=== PATIENT | female | born 1930 | race Caucasian/White ===

== ENCOUNTER 2017-09-04 13:54 | Emergency (ER) | payer MEDICARE ==
--- NOTE | 2017-09-04 15:31 | RADIOLOGY REPORT (SQ) ---
EXAM DESCRIPTION: HUMERUS RIGHT COMPLETED DATE/TIME: 09/04/2017 3:20 pm REASON FOR STUDY: fall COMPARISON: None. NUMBER OF VIEWS: 3 views. TECHNIQUE: 3 radiographic images were acquired of the right humerus to include elbow and shoulder in at least one projection. LIMITATIONS: None. FINDINGS: MINERALIZATION: Demineralization of the bony structures. BONES: AC arthrosis and hypertrophy. Decrease in subacromion space with subluxation of humeral head superiorly compatible with chronic rotator cuff degeneration. Soft tissue calcification adjacent gre ater tuberosity consistent with peritendinitis calcareii. Articular calcification at the AC joint. SOFT TISSUES: No obvious swelling or foreign body. OTHER: No other significant finding. IMPRESSION: NEGATIVE STUDY OF THE RIGHT HUMERUS. NO RADIOGRAPHIC EVIDENCE OF ACUTE INJURY. TECHNICAL DOCUMENTATION: JOB ID: [id number] SC-[id number] 2010 [employer]- All Rights Reserved Reading location - IP/workstation name: [email or web address]
--- NOTE | 2017-09-04 15:55 | RADIOLOGY REPORT (SQ) ---
EXAM DESCRIPTION: CT CHEST WITHOUT COMPLETED DATE/TIME: 09/04/2017 3:36 pm REASON FOR STUDY: fall COMPARISON: None. TECHNIQUE: CT scan performed of the chest without intravenous contrast. Images reviewed with lung, soft tissue and bone windows. Reconstructed coronal and sagittal MPR images reviewed. All images st ored on PACS. All CT scanners at this facility use dose modulation, iterative reconstruction, and/or weight based d osing when appropriate to reduce radiation dose to as low as reasonably achievable (ALARA). [facility]: Dose Right [facility]: CareDose [facility]: Dose Right [facility]: Teradose 4D [facility]: [employer] RADIATION DOSE: CT Rad equipment meets quality standard of care and radiation dose reduction techniq ues were employed. CTDIvol: 8.6 mGy. DLP: 297 mGy-cm. mGy. LIMITATIONS: No technical limitations. FINDINGS: LUNGS AND PLEURA: Mild chronic left lower lobe scar with associated bronchiectasis. Lungs otherwise clear. No pneumothorax or acute infiltrate. No pleural effusion. HILAR AND MEDIASTINAL STRUCTURES: No evidence of mediastinal hematoma, mass or adenopathy. HEART AND VASCULAR STRUCTURES: Pronounced coronary calcification. No evidence of aortic aneurysm. N o pericardial effusion. UPPER ABDOMEN: Cholelithiasis. THYROID AND OTHER SOFT TISSUES: No masses. No adenopathy. BONES: Relatively nondisplaced right lateral 6th and 7th rib fractures. HARDWARE: None in the chest. OTHER: No other significant findings. Note: The patient's head was erroneously scanned initially. I asked the technologist to attach the images to this chest study for review. This is not interpreted as a separate examination and the pat ient will not be billed for the mistakenly performed head CT. There is no acute intracranial abnorma lity detected. No suspicious findings. IMPRESSION: 1. Nondisplaced right lateral 6th and 7th rib fractures. No pneumothorax. Lungs clear . TECHNICAL DOCUMENTATION: JOB ID: [id number] Quality ID # [id number]: Final reports with documentation of one or more dose reduction techniques (e.g., Au tomated exposure control, adjustment of the mA and/or kV according to patient size, use of iterative reconstruction technique) 2010 [employer]- All Rights Reserved Reading location - IP/workstation name: [email or web address]
[2017-09-04] MEDS ORDERED: HYDROCODONE/ACETAMINOPHEN 5-325 MG (6 TAB/ER DISP) PO PRN (16:17)
--- NOTE | 2017-09-04 16:17 | ER Document Report ---
ED Fall - General Chief Complaint: Fall Stated Complaint: FALL RIGHT RIB PAIN Time Seen by Provider: 09/04/17 14:47 Notes: Patient fell around 4 AM this morning and injured her right shoulder and right upper arm as well as her right ribs. She lives at the [facility], assisted living , and uses a walker to ambulate and she also has problems with neuropathy making it difficult for her to walk even with the walker. She has multiple bruises over most of her body consistent with fragile skin and tissues and repeated trauma. Patient denies any other symptoms. Denies any vomiting or diarrhea. Denies chest pain. Denies difficulty breathing or shortness of breath. Denies fever. TRAVEL OUTSIDE OF THE [place] IN LAST 30 DAYS: No - Related data Allergies/Adverse Reactions: Penicillins Allergy (Verified 09/04/17 14:05) Past Medical History - Social History Smoking Status: Unknown if Ever Smoked Cigarette use (# per day): No Family History: Reviewed & Not Pertinent Patient has suicidal ideation: No Patient has homicidal ideation: No - Past Medical History Cardiac Medical History: Reports: Hx Hypertension Pulmonary Medical History: Reports: Hx Bronchitis Endocrine Medical History: Reports: Hx Diabetes Mellitus Type 2 - prediabetic per records GI Medical History: Reports: Hx Gastroesophageal Reflux Disease Review of Systems - Review of Systems Notes: REVIEW OF SYSTEMS: CONSTITUTIONAL : Denies fever. EENT: Denies eye, ear, nose or mouth or throat pain or other symptoms. CARDIOVASCULAR: Denies chest pain. Does have chest wall type pain in the right robert-lateral rib region. RESPIRATORY: Denies cough, chest congestion, or shortness of breath. GASTROINTESTINAL: Denies abdominal pain or nausea, vomiting, or diarrhea. GENITOURINARY: Denies difficulty or painful urinating, urinary frequency, blood in urine. MUSCULOSKELETAL: Denies back or neck pain. Denies joint pain or swelling. Pain in proximal right humerus to the right shoulder joint, but bones feel to be properly located and no fracture or dislocation clinically evident. SKIN: Denies rash or skin lesions. NEUROLOGICAL: Denies LOC or altered mental status. Denies headache. Denies sensory loss or motor deficits. ALL OTHER SYSTEMS REVIEWED AND NEGATIVE. Physical Exam - Vital signs Vitals: Temp Pulse Resp BP Pulse Ox 97.8 F 61 16 166/59 H 93 09/04/17 14:15 09/04/17 14:15 09/04/17 14:15 09/04/17 14:15 09/04/17 14:15 Interpretation: Normal - Notes Notes: PHYSICAL EXAMINATION: GENERAL: Well-appearing, in no acute distress. HEAD: Atraumatic, normocephalic. EYES: Pupils equal round and reactive to light, extraocular movements intact. NECK: Normal range of motion, supple. LUNGS: Breath sounds clear and equal bilaterally. Very tender to press on the ribs of the right anterior lateral chest. No subcutaneous air felt, however. HEART: Regular rate and rhythm without murmurs. ABDOMEN: Soft, nontender. No guarding or rebound. No masses. BACK: No tenderness throughout entire back. EXTREMITIES: Patient complains of pain for me to palpate the right shoulder joint or to lift her right arm and move that joint. The humeral head feels to be in the proper location at the glenoid fossa. No significant soft tissue swelling. Clinically, I doubt she has a fracture or dislocation. Otherwise, all other joints normal range of motion without pain. NEUROLOGICAL: Normal speech. Normal sensory, motor, and reflex exams. Awake, alert, and oriented x3. PSYCH: Normal mood, normal affect. SKIN: Warm, dry, no rashes. Course - Vital Signs Vital signs: Temp Pulse Resp BP Pulse Ox 97.8 F 74 16 141/52 H 93 09/04/17 18:55 09/04/17 18:55 09/04/17 18:55 09/04/17 18:55 09/04/17 18:55 - Diagnostic Test Radiology reviewed: Image reviewed, Reports reviewed - CT of the chest shows fractures of the sixth and seventh ribs on the right. Otherwise negative. Radiology results interpreted by me: 09/04/17 20:48 Right shoulder x-ray and humerus bone are normal without fracture or dislocation. Discharge - Discharge Clinical Impression: Fall, Fracture of ribs, two Condition: Stable Disposition: HOME, SELF-CARE Additional Instructions: HEAD INJURY PRECAUTIONS: At this point, there is no evidence that your head injury is serious. Observation is necessary, however. Take only clear liquids for the first few hours, unless told otherwise by the doctor. If no pain medication was prescribed, you may take acetaminophen according to the directions on the bottle. Do not take any medication that may alter your level of alertness (unless you've discussed it with the doctor first) . Limit activity for the first 24 hours. Bed rest is best. During the first 24 hours, check to see approximately every two to three hours that the patient is easily arousable, responds normally, and can perform common tasks such as walking without difficulty. Contact your doctor or go to the hospital if any of the following things occur: Persistent vomiting, difficulty in arousing the patient, worsening or continued headache, or failure to improve as expected. Head injuries can cause symptoms that persist for a few days or even a few weeks. Rib Injuries and Fractures You have been diagnosed as having either bruised or broken ribs. These two injuries are treated in the same way. It will usually take four to six weeks for these injured ribs to heal. Sometimes, rib belts or anesthetic injections of the chest wall help reduce the pain. If you are using a rib belt, you should cough or take a deep breath at least every hour or two to prevent lung complications. You should not engage in any strenuous physical activity until released by your physician. The usual rule is "if it hurts, don't do it." Rib fractures can lead to serious lung complications including lung collapse, hemorrhage, and pneumonia. You should call the physician or return at once if any of the following occur: (1) Fever or chills. (2) Persistent cough, coughing up blood, or shortness of breath. (3) Increasing pain. (4) Weakness, lightheadedness, or fainting. CONTUSION right arm and shoulder: Your injury has resulted in a contusion -- a crushing of the deep tissues. No injury to important structures was detected during the physician's exam. Contusions vary in the amount of pain they cause, and in the length of time required for healing. Typically, the area will become bruised, and will remain painful to touch for two or three weeks. However, most patients are back to working and playing within a few days. After the initial period of rest and cold-packs, your symptoms (together with the doctor's recommendations) will determine how rapidly you can get back to full activity. Usually this means "do what feels okay, but don't do things that hurt." If re-examination was recommended, it's important to follow up as instructed. Call the doctor or return any time if pain increases, if swelling becomes severe, if you develop numbness or weakness in an injured extremity, or if any other alarming symptoms occur. USE OF TYLENOL (ACETAMINOPHEN): Acetaminophen may be taken for pain relief or fever control. It's much safer than aspirin, offering a wider range of "safe" dosages. It is safe during . Some brand names are Tylenol, Panadol, Datril, Anacin 3, Tempra, and Liquiprin. Acetaminophen can be repeated every four hours. The following are maximum recommended dosages: WEIGHT Dose Drops Elixir Chewable( 80mg) (LBS.) drprs=droppers tsp=teaspoon >89 pounds or adults 650 mg to 900 mg Acetaminophen can be repeated every four hours. Maximum dose not to exceed 4000 mg a day. These maximum recommended dosages are slightly higher than the dosages written on the product container, but these dosages are very safe and below the toxic dosage for acetaminophen. ORAL NARCOTIC MEDICATION: You have been given a prescription for pain control. This medication is a narcotic. It's best taken with food, as nausea can result if taken on an empty stomach. Don't operate machinery or drive within six hours of taking this medication. Do not combine this medicine with alcohol, or with any medication which can cause sedation (such as cold tablets or sleeping pills) unless you get permission from the physician. Narcotics tend to cause constipation. If possible, drink plenty of fluids and eat a diet high in fiber and fruits. FOLLOW-UP CARE: If you have been referred to a physician for follow-up care, call the physician s office for an appointment as you were instructed or within the next two days. If you experience worsening or a significant change in your symptoms, notify the physician immediately or return to the Emergency Department at any time for re-evaluation. Referrals: ELYSE BOOTH MD [Primary Care Provider] - Follow up as needed
[2017-09-04 18:57] VITALS: BP 141/52
== END 2017-09-04 19:06 | disposition home or self-care (01) ==
LOC: ER 13:54
DX: S22.41XA Multiple fractures of ribs, right side, initial encounter for closed fracture (principal); S49.91XA Unspecified injury of right shoulder and upper arm, initial encounter; W19.XXXA Unspecified fall, initial encounter; Y93.89 Activity, other specified; I10 Essential (primary) hypertension; G62.9 Polyneuropathy, unspecified
CPT/HCPCS: 99285; 73060; 71250; A9270

== ENCOUNTER 2017-11-25 12:05 | Emergency (ER) | payer MEDICARE ==
--- NOTE | 2017-11-25 13:11 | RADIOLOGY REPORT (SQ) ---
EXAM DESCRIPTION: CT HEAD WITHOUT COMPLETED DATE/TIME: 11/25/2017 12:54 pm REASON FOR STUDY: FALL CHAVEZ ORBITAL PAIN COMPARISON: None. TECHNIQUE: Axial images acquired through the brain without intravenous contrast. Images reviewed wi th bone, brain and subdural windows. Additional sagittal and coronal reconstructions were generated. Images stored on PACS. All CT scanners at this facility use dose modulation, iterative reconstruction, and/or weight based d osing when appropriate to reduce radiation dose to as low as reasonably achievable (ALARA). [facility]: Dose Right [facility]: CareDose [facility]: Dose Right [facility]: Teradose 4D [facility]: Smart [employer] RADIATION DOSE: CT Rad equipment meets quality standard of care and radiation dose reduction techniq ues were employed. CTDIvol: 53.2 mGy. DLP: 991 mGy-cm. mGy. LIMITATIONS: None. FINDINGS: VENTRICLES: Prominent. CEREBRUM: Mild cortical atrophy. No masses. No hemorrhage. No midline shift. No evidence for acut e infarction. Few scattered areas of low density in the white matter most likely chronic small vessel ischemic changes. CEREBELLUM: No masses. No hemorrhage. No alteration of density. No evidence for acute infarction. EXTRAAXIAL SPACES: No fluid collections. No masses. ORBITS AND GLOBE: No intra- or extraconal masses. Normal contour of globe without masses. CALVARIUM: No fracture. PARANASAL SINUSES: No fluid or mucosal thickening. SOFT TISSUES: Right posterior parietal scalp hematoma. OTHER: No other significant finding. IMPRESSION: Right posterior parietal scalp hematoma with no acute intracranial imaging findings. Ch ronic microvascular ischemia. EVIDENCE OF ACUTE STROKE: NO. COMMENT: Quality ID # [id number]: Final reports with documentation of one or more dose reduction techniques (e.g., Automated exposure control, adjustment of the mA and/or kV according to patient size, use of iterative reconstruction technique) TECHNICAL DOCUMENTATION: JOB ID: [id number] [employer] All Rights Reserved Reading location - IP/workstation name: [email or web address]
--- NOTE | 2017-11-25 13:18 | RADIOLOGY REPORT (SQ) ---
EXAM DESCRIPTION: CT CERVICAL SPINE WITHOUT COMPLETED DATE/TIME: 11/25/2017 12:54 pm REASON FOR STUDY: FALL CHVAEZ ORBITAL PAIN COMPARISON: None. TECHNIQUE: Axial images acquired through the cervical spine without intravenous contrast. Images re viewed with lung, soft tissue and bone windows. Reconstructed coronal and sagittal MPR images review ed. Images stored on PACS. All CT scanners at this facility use dose modulation, iterative reconstruction, and/or weight based d osing when appropriate to reduce radiation dose to as low as reasonably achievable (ALARA). [facility]: Dose Right [facility]: CareDose [facility]: Dose Right [facility]: Teradose 4D [facility]: [employer] RADIATION DOSE: CT Rad equipment meets quality standard of care and radiation dose reduction techniq ues were employed. CTDIvol: 22.8 mGy. DLP: 472 mGy-cm. mGy. LIMITATIONS: None. FINDINGS: ALIGNMENT: Anatomic. MINERALIZATION: Normal. VERTEBRAL BODIES: No fractures or dislocation. DISCS: Disc spaces are narrowed from C5- T1. Small anterior and posterior osteophytes are present. FACETS, LATERAL MASSES, POSTERIOR ELEMENTS: Hypertrophic facet changes are present in the mid cervica l spine on the right. HARDWARE: None in the spine. VISUALIZED RIBS: No fractures. LUNG APICES AND SOFT TISSUES: No significant or acute findings. OTHER: No other significant finding. IMPRESSION: Degenerative disc disease, spondylosis, and facet arthropathy. TECHNICAL DOCUMENTATION: JOB ID: [id number] Quality ID # [id number]: Final reports with documentation of one or more dose reduction techniques (e.g., Au tomated exposure control, adjustment of the mA and/or kV according to patient size, use of iterative reconstruction technique) 2010 [employer]- All Rights Reserved Reading location - IP/workstation name: [email or web address]
--- NOTE | 2017-11-25 13:21 | RADIOLOGY REPORT (SQ) ---
EXAM DESCRIPTION: CT FACIAL AREA WITHOUT COMPLETED DATE/TIME: 11/25/2017 12:54 pm REASON FOR STUDY: FALL CHAVEZ ORBITAL PAIN COMPARISON: None. TECHNIQUE: Noncontrasted images through the facial bones and orbits windowed for bone and soft tissu e. Additional coronal and sagittal reconstructed images reviewed. All images stored on PACS. All CT scanners at this facility use dose modulation, iterative reconstruction, and/or weight based d osing when appropriate to reduce radiation dose to as low as reasonably achievable (ALARA). [facility]: Dose Right [facility]: CareDose [facility]: Dose Right [facility]: Teradose 4D [facility]: [employer] RADIATION DOSE: CT Rad equipment meets quality standard of care and radiation dose reduction techniq ues were employed. CTDIvol: 30.4 mGy. DLP: 576 mGy-cm. mGy. LIMITATIONS: None. FINDINGS: FACIAL BONES: No fracture or bone lesion. ORBITS: Intact. No fracture. Symmetric intact globes and retroorbital soft tissues. PARANASAL SINUSES: Small mucous retention cysts bilaterally. Antral windows. No nasal polyps. Maxil smooth sinus outlets are patent. SOFT TISSUES: No mass or edema. INFERIOR BRAIN: Limited view. No acute findings. OTHER: No other significant finding. IMPRESSION: Mild maxillary sinus disease. No acute facial fractures. TECHNICAL DOCUMENTATION: JOB ID: [id number] Quality ID # [id number]: Final reports with documentation of one or more dose reduction techniques (e.g., Au tomated exposure control, adjustment of the mA and/or kV according to patient size, use of iterative reconstruction technique) 2010 [employer]- All Rights Reserved Reading location - IP/workstation name: [email or web address]
--- NOTE | 2017-11-25 13:31 | ER Document Report ---
ED General - General Chief Complaint: Fall Stated Complaint: FALL NECK PAIN Time Seen by Provider: 11/25/17 12:13 TRAVEL OUTSIDE OF THE [place] IN LAST 30 DAYS: No - HPI Patient complains to provider of: fall Notes: Patient admitted from local nursing facility at the referral. Patient pain was walking to see somebody in the doorway when she fell hitting her head with a hematoma on the top and right posterior part of the scalp. Patient upon my evaluation alert complaining of a mild headache. Patient is on aspirin and Plavix. Patient denies any chest pain abdominal pain leg pain prior to or after fall. Patient was concurrently with c-collar on asking to have the c- collar removed. - Related Data Allergies/Adverse Reactions: Penicillins Allergy (Verified 09/04/17 14:05) Past Medical History - Social History Smoking Status: Never Smoker Frequency of alcohol use: None Drug Abuse: None Family History: Reviewed & Not Pertinent Patient has suicidal ideation: No Patient has homicidal ideation: No - Past Medical History Cardiac Medical History: Reports: Hx Hypertension Pulmonary Medical History: Reports: Hx Bronchitis Endocrine Medical History: Reports: Hx Diabetes Mellitus Type 2 - prediabetic per records Renal/ Medical History: Denies: Hx Peritoneal Dialysis GI Medical History: Reports: Hx Gastroesophageal Reflux Disease Review of Systems - Review of Systems Constitutional: Other - fall headache EENT: No symptoms reported Cardiovascular: No symptoms reported Respiratory: No symptoms reported Gastrointestinal: No symptoms reported Genitourinary: No symptoms reported Female Genitourinary: No symptoms reported Musculoskeletal: No symptoms reported Skin: No symptoms reported Hematologic/Lymphatic: No symptoms reported Neurological/Psychological: No symptoms reported -: Yes All other systems reviewed and negative Physical Exam - Vital signs Vitals: Temp Pulse Resp BP Pulse Ox 97.7 F 64 18 209/70 H 96 11/25/17 12:12 11/25/17 12:12 11/25/17 12:12 11/25/17 12:12 11/25/17 12:12 Interpretation: Normal - General General appearance: Appears well, Alert - HEENT Head: Normocephalic, Other - Hematoma to the scalp right side Eyes: Normal Conjunctiva: Normal Cornea: Normal Extraocular movements intact: Yes Eyelashes: Normal Pupils: PERRL Neck: Other - C-collar in place Notes: Patient with tenderness to palpation to the mentum bilateral zygomatic arches and nasal bridge no signs of obvious fracture seen - Respiratory Respiratory status: No respiratory distress Chest status: Nontender Breath sounds: Normal Chest palpation: Normal - Cardiovascular Rhythm: Regular Heart sounds: Normal auscultation Murmur: No - Abdominal Inspection: Normal Distension: No distension Bowel sounds: Normal Tenderness: Nontender Organomegaly: No organomegaly - Back Back: Normal, Nontender - Extremities General upper extremity: Normal inspection, Nontender, Normal color, Normal ROM , Normal temperature General lower extremity: Normal inspection, Nontender, Normal color, Normal ROM , Normal temperature, Normal weight bearing. No: Julio César's sign - Neurological Neuro grossly intact: Yes Cognition: Normal Orientation: AAOx4 Rhiannon Coma Scale Eye Opening: Spontaneous [place] Coma Scale Verbal: Oriented [place] Coma Scale Motor: Obeys Commands Rhiannon Coma Scale Total: 15 Speech: Normal Motor strength normal: LUE, RUE, LLE, RLE Sensory: Normal - Psychological Associated symptoms: Normal affect, Normal mood - Skin Skin Temperature: Warm Skin Moisture: Dry Skin Color: Normal Course - Re-evaluation Re-evalutation: 11/25/17 13:30 History is negative for acute fracture or intracranial pathology. C-collar will be removed. More likely hospice will be back to the nursing care facility after ambulating the patient here in the ER - Vital Signs Vital signs: Temp Pulse Resp BP Pulse Ox 97.7 F 64 14 183/75 H 97 11/25/17 12:12 11/25/17 12:12 11/25/17 14:10 11/25/17 14:10 11/25/17 14:10 Discharge - Discharge Clinical Impression: Fall Qualifiers: Encounter type: initial encounter Qualified Code(s): W19.XXXA - Unspecified fall, initial encounter Scalp hematoma Qualifiers: Encounter type: initial encounter Qualified Code(s): S00.03XA - Contusion of scalp, initial encounter Condition: Good Instructions: Head Injury Precautions ([facility]) Additional Instructions: Please create a safe environment for the patient to invade around. CT scan of the head face and neck today did not reveal any acute traumatic findings. Please follow-up with your primary care physician return to the ER symptoms worsen. Referrals: ELYSE BOOTH MD [Primary Care Provider] - Follow up as needed
[2017-11-25 13:59] VITALS: BP 183/75
== END 2017-11-25 14:41 ==
LOC: ER 12:05
DX: S00.03XA Contusion of scalp, initial encounter (principal); R51 Headache; M54.2 Cervicalgia; W19.XXXA Unspecified fall, initial encounter; Z79.02 Long term (current) use of antithrombotics/antiplatelets; Z79.82 Long term (current) use of aspirin; E11.9 Type 2 diabetes mellitus without complications; I10 Essential (primary) hypertension
CPT/HCPCS: 70450; 70486; 72125; 99285

== ENCOUNTER 2018-02-11 14:37 | Emergency (ER) | payer MEDICARE ==
--- NOTE | 2018-02-11 15:41 | RADIOLOGY REPORT (SQ) ---
EXAM DESCRIPTION: CT HEAD WITHOUT COMPLETED DATE/TIME: 02/11/2018 3:27 pm REASON FOR STUDY: Fall, bleeding from mouth/nose COMPARISON: 11/25/2017 TECHNIQUE: Axial images acquired through the brain without intravenous contrast. Images reviewed wi th bone, brain and subdural windows. Additional sagittal and coronal reconstructions were generated. Images stored on PACS. All CT scanners at this facility use dose modulation, iterative reconstruction, and/or weight based d osing when appropriate to reduce radiation dose to as low as reasonably achievable (ALARA). [facility]: Dose Right [facility]: CareDose [facility]: Dose Right [facility]: Teradose 4D [facility]: [employer] RADIATION DOSE: CT Rad equipment meets quality standard of care and radiation dose reduction techniq ues were employed. CTDIvol: 53.2 mGy. DLP: 991 mGy-cm. mGy. LIMITATIONS: None. FINDINGS: VENTRICLES: Prominent. CEREBRUM: No masses. No hemorrhage. No midline shift. Areas of low density in the white matter mos t likely due to chronic micro-vascular ischemic change. No evidence for acute infarction. CEREBELLUM: No masses. No hemorrhage. No alteration of density. No evidence for acute infarction. EXTRAAXIAL SPACES: Mild age-related involutional change. No fluid collections. No masses. ORBITS AND GLOBE: No intra- or extraconal masses. Normal contour of globe without masses. CALVARIUM: No fracture. PARANASAL SINUSES: No fluid or mucosal thickening. SOFT TISSUES: No mass or hematoma. OTHER: No other significant finding. IMPRESSION: MILD CHRONIC CHANGES OF ATROPHY AND MICROVASCULAR ISCHEMIA. NO ACUTE PROCESS. EVIDENCE OF ACUTE STROKE: NO. TECHNICAL DOCUMENTATION: JOB ID: [id number] Quality ID # [id number]: Final reports with documentation of one or more dose reduction techniques (e.g., Au tomated exposure control, adjustment of the mA and/or kV according to patient size, use of iterative reconstruction technique) 2010 [employer]- All Rights Reserved Reading location - IP/workstation name: [email or web address]
--- NOTE | 2018-02-11 15:47 | RADIOLOGY REPORT (SQ) ---
EXAM DESCRIPTION: CT FACIAL AREA WITHOUT COMPLETED DATE/TIME: 02/11/2018 3:27 pm REASON FOR STUDY: Fall, bleeding from mouth/nose COMPARISON: None. TECHNIQUE: Noncontrasted images through the facial bones and orbits windowed for bone and soft tissu e. Additional coronal and sagittal reconstructed images reviewed. All images stored on PACS. All CT scanners at this facility use dose modulation, iterative reconstruction, and/or weight based d osing when appropriate to reduce radiation dose to as low as reasonably achievable (ALARA). [facility]: Dose Right [facility]: CareDose [facility]: Dose Right [facility]: Teradose 4D [facility]: [employer] RADIATION DOSE: CT Rad equipment meets quality standard of care and radiation dose reduction techniq ues were employed. CTDIvol: 30.4 mGy. DLP: 549 mGy-cm. mGy. LIMITATIONS: None. FINDINGS: FACIAL BONES: No fracture or bone lesion. ORBITS: Intact. No fracture. Symmetric intact globes and retroorbital soft tissues. PARANASAL SINUSES: Chronic sinus disease. The prior surgery. SOFT TISSUES: Marked soft tissue swelling of the nose. INFERIOR BRAIN: Limited view. No acute findings. OTHER: No other significant finding. IMPRESSION: No acute fracture. Marked soft tissue swelling of the nose. TECHNICAL DOCUMENTATION: JOB ID: [id number] Quality ID # [id number]: Final reports with documentation of one or more dose reduction techniques (e.g., Au tomated exposure control, adjustment of the mA and/or kV according to patient size, use of iterative reconstruction technique) 2010 [employer]- All Rights Reserved Reading location - IP/workstation name: [email or web address]
--- NOTE | 2018-02-11 15:49 | RADIOLOGY REPORT (SQ) ---
EXAM DESCRIPTION: CT CERVICAL SPINE WITHOUT COMPLETED DATE/TIME: 02/11/2018 3:27 pm REASON FOR STUDY: Fall, bleeding from mouth/nose COMPARISON: 11/25/2017. TECHNIQUE: Axial images acquired through the cervical spine without intravenous contrast. Images re viewed with lung, soft tissue and bone windows. Reconstructed coronal and sagittal MPR images review ed. Images stored on PACS. All CT scanners at this facility use dose modulation, iterative reconstruction, and/or weight based d osing when appropriate to reduce radiation dose to as low as reasonably achievable (ALARA). [facility]: Dose Right [facility]: CareDose [facility]: Dose Right [facility]: Teradose 4D [facility]: [employer] RADIATION DOSE: CT Rad equipment meets quality standard of care and radiation dose reduction techniq ues were employed. CTDIvol: 20.7 mGy. DLP: 425 mGy-cm. mGy. LIMITATIONS: None. FINDINGS: ALIGNMENT: Anatomic. MINERALIZATION: Normal. VERTEBRAL BODIES: Multilevel cervical spondylosis from C3 -T1. DISCS: Prominent disc space narrowing from C5-T1 consistent with degenerative disc disease. Minimal disc space narrowing at C3-5. FACETS, LATERAL MASSES, POSTERIOR ELEMENTS: Facet arthropathy at C4-5. Facet arthropathy at C5-6 wit h minimal bilateral foraminal narrowing ,greatest on the left. Facet arthropathy at C6-7 with bilate ral foraminal stenosis. HARDWARE: None in the spine. VISUALIZED RIBS: No fractures. LUNG APICES AND SOFT TISSUES: No significant or acute findings. IMPRESSION: 1. Multilevel cervical spondylosis with degenerative disc disease most prominent at C5- T1. 2. Multilevel facet arthropathy with minimal foraminal narrowing noted on the left at C5-6 and bilaterally at C6-7. TECHNICAL DOCUMENTATION: JOB ID: [id number] Quality ID # [id number]: Final reports with documentation of one or more dose reduction techniques (e.g., Au tomated exposure control, adjustment of the mA and/or kV according to patient size, use of iterative reconstruction technique) 2010 [employer]- All Rights Reserved Reading location - IP/workstation name: [email or web address]
[2018-02-11 16:24] LABS: AMORPHOUS SEDIMENT,URINE TRACE /HPF; APPEARANCE,URINE SLIGHTLY-CLOUDY; BILIRUBIN,URINE NEGATIVE (NEGATIVE); COLOR,URINE YELLOW; GLUCOSE, URINE NEGATIVE (NEGATIVE); KETONES,URINE NEGATIVE (NEGATIVE); LEUKOCYTE ESTERASE,URINE MODERATE (NEGATIVE); NITRITE,URINE POSITIVE (NEGATIVE); PROTEIN,URINE NEGATIVE (NEGATIVE); URINE SPECIFIC GRAVITY 1.009; UROBILINOGEN,URINE NEGATIVE mg/dL (<2.0)
[2018-02-11 16:34] LABS: URINE AMPHETAMINES SCREEN NEGATIVE; URINE BARBITURATES SCREEN NEGATIVE; URINE BENZODIAZEPINES SCREEN NEGATIVE; URINE COCAINE SCREEN NEGATIVE; URINE MARIJUANA (THC) SCREEN NEGATIVE; URINE METHADONE SCREEN NEGATIVE; URINE PHENCYCLIDINE SCREEN NEGATIVE
[2018-02-11 16:41] LABS: ABSOLUTE EOSINOPHILS # (AUTO) 0.4 10^3/uL (0.0-0.6); ABSOLUTE MONOCYTES (AUTO) 0.6 10^3/uL (0.1-1.4); ABSOLUTE NEUT (AUTO) 4.3 10^3/uL (1.7-8.2); BASOPHILS % (AUTO) 0.7 % (0-2); EOSINOPHILS % (AUTO) 6.8 % (0-6); HEMATOCRIT 34.6 % (36.0-47.0); HEMOGLOBIN 11.3 g/dL (12.0-15.5); LYMPHOCYTES % (AUTO) 15.7 % (13-45); MEAN CORPUSCULAR HGB CONC 32.7 g/dL (32.0-36.0); MEAN CORPUSCULAR VOLUME 80 fl (80-97); MONOCYTES % (AUTO) 9.5 % (3-13); PLATELET COUNT 261 10^3/uL (150-450); RED BLOOD COUNT 4.35 10^6/uL (3.72-5.28); SEGMENTED NEUTROPHILS % (AUTO) 67.3 % (42-78); TOTAL CELLS COUNTED % (AUTO) 100 %; WHITE BLOOD COUNT 6.4 10^3/uL (4.0-10.5)
[2018-02-11 17:05] LABS: ALANINE AMINOTRANSFERASE 19 U/L (9-52); ALKALINE PHOSPHATASE 94 U/L (38-126); ANION GAP 10 (5-19); ASPARTATE AMINO TRANSFERASE 29 U/L (14-36); BILIRUBIN,DIRECT 0.3 mg/dL (0.0-0.4); BILIRUBIN,TOTAL 0.4 mg/dL (0.2-1.3); BLOOD UREA NITROGEN 23 mg/dL (7-20); CALCIUM 10.3 mg/dL (8.4-10.2); CARBON DIOXIDE 33 mmol/L (22-30); CHLORIDE 101 mmol/L (98-107); GLUCOSE 118 mg/dL (75-110); POTASSIUM 4.4 mmol/L (3.6-5.0); SODIUM 143.6 mmol/L (137-145); TOTAL PROTEIN 7.3 g/dL (6.3-8.2)
[2018-02-11 17:17] LABS: CREATINE KINASE MB 5.31 ng/mL (<4.55); TROPONIN I 0.013 ng/mL
--- NOTE | 2018-02-11 17:35 | ER Document Report ---
ED General - General Chief Complaint: Fall Stated Complaint: FALL/FACE INJURY Time Seen by Provider: 02/11/18 14:58 Mode of Arrival: Medic Information source: Emergency Med Personnel Notes: Patient is an 87-year-old female who presents to the emergency department via EMS for alleged fall. Staff at the [facility] told EMS that they found her on the ground face down. At the time of EMS arrival, EMS states that they told her she had been down for 5 minutes. Patient has dried blood to her nares and mouth on arrival to the emergency department. She is awake and opening her eyes, she is able to tell us her name but does not answer any other questions. It is unclear if this was a witnessed fall as a document that was sent with the patient states that she fell out of her wheelchair however EMS was told that they found her on the ground and it was not a witnessed fall. TRAVEL OUTSIDE OF THE [place] IN LAST 30 DAYS: No - Related Data Allergies/Adverse Reactions: Penicillins Allergy (Verified 09/04/17 14:05) Past Medical History - General Information source: Outside Facility Records - Social History Smoking Status: Unknown if Ever Smoked Family History: Reviewed & Not Pertinent Patient has suicidal ideation: No Patient has homicidal ideation: No - Past Medical History Cardiac Medical History: Reports: Hx Hypertension Pulmonary Medical History: Reports: Hx Bronchitis Endocrine Medical History: Reports: Hx Diabetes Mellitus Type 2 - prediabetic per records Renal/ Medical History: Denies: Hx Peritoneal Dialysis GI Medical History: Reports: Hx Gastroesophageal Reflux Disease Psychiatric Medical History: Reports: Other - Aggression Review of Systems - Review of Systems Musculoskeletal: See HPI Skin: See HPI -: Yes All other systems reviewed and negative Physical Exam - Vital signs Vitals: Temp Pulse Resp BP Pulse Ox 97.3 F 73 18 155/62 H 96 02/11/18 14:40 02/11/18 14:40 02/11/18 14:40 02/11/18 14:40 02/11/18 14:40 - Notes Notes: PHYSICAL EXAMINATION: GENERAL: Well-appearing, well-nourished and in no acute distress. HEAD: Atraumatic, normocephalic. EYES: Pupils equal round and reactive to light, extraocular movements intact, conjunctiva are normal. ENT: Nares patent, oropharynx clear without exudates. Moist mucous membranes. NECK: Normal range of motion, supple without lymphadenopathy LUNGS: Breath sounds clear to auscultation bilaterally and equal. No wheezes rales or rhonchi. HEART: Regular rate and rhythm without murmurs ABDOMEN: Soft, nontender, nondistended abdomen. No guarding, no rebound. No masses appreciated. Female : deferred Musculoskeletal: Normal range of motion, no pitting or edema. No cyanosis. NEUROLOGICAL: Cranial nerves grossly intact. Normal speech.. Normal sensory, motor exams PSYCH: Normal mood, normal affect. SKIN: Warm, Dry, normal turgor, no rashes or lesions noted. Healing bruise noted to left collarbone. Ecchymosis noted to right collarbone, right knee, right scapula. Swelling noted to upper lip, small abrasion noted. Course - Re-evaluation Re-evalutation: All imaging studies are unremarkable to include CT head CT neck CT facial bones. CBC and CMP are unremarkable. Urinalysis with large leukocyte esterase and nitrites present. Patient does have baseline dementia so patient has had no complaints. Patient does have a small hematoma to her upper lip with a small abrasion however there is no repairable laceration noted. Patient has dentures in place to the upper teeth. Patient will be treated for urinary tract infection and discharged home to the facility. Patient is in the custody of [facility], I did speak with them as well as [facility] regarding patient's workup today. I did perform a urine drug screen on this patient as part of her workup, the urine drug screen was negative for all substances. It is documented in the patient's medication administration record from the outside facility that patient is receiving lorazepam on a as needed basis, the medication administration record states that she has been receiving it 1-2 times daily for the last several days. This was discussed with the tour sales representative from [facility]. - Vital Signs Vital signs: Temp Pulse Resp BP Pulse Ox 97.1 F 77 20 145/58 H 97 02/11/18 20:55 02/11/18 20:55 02/11/18 20:55 02/11/18 20:55 02/11/18 20:55 - Laboratory Result Diagrams: 02/11/18 16:20 02/11/18 16:20 Laboratory results interpreted by me: 02/11/18 02/11/18 02/11/18 16:05 16:20 16:20 Hgb 11.3 L Hct 34.6 L MCH 26.0 L RDW 16.0 H Eosinophils % 6.8 H Carbon Dioxide 33 H BUN 23 H Est GFR ( Amer) 49 L Est GFR (Non-Af Amer) 40 L Glucose 118 H Calcium 10.3 H CK-MB (CK-2) Urine Nitrite POSITIVE H Ur Leukocyte Esterase MODERATE H 02/11/18 16:20 Hgb Hct MCH RDW Eosinophils % Carbon Dioxide BUN Est GFR ( Amer) Est GFR (Non-Af Amer) Glucose Calcium CK-MB (CK-2) 5.31 H Urine Nitrite Ur Leukocyte Esterase Discharge - Discharge Clinical Impression: Fall Qualifiers: Encounter type: initial encounter Qualified Code(s): W19.XXXA - Unspecified fall, initial encounter Facial contusion Qualifiers: Encounter type: initial encounter Qualified Code(s): S00.83XA - Contusion of other part of head, initial encounter Urinary tract infection Qualifiers: Urinary tract infection type: site unspecified Hematuria presence: with hematuria Qualified Code(s): N39.0 - Urinary tract infection, site not specified Condition: Stable Disposition: HOME, SELF-CARE Additional Instructions: URINARY TRACT INFECTION: Your evaluation indicates that you have a urinary tract infection. This is due to germs growing in the bladder. This is a common problem. This infection usually responds quickly to antibiotics. Your antibiotic should be taken exactly as prescribed. Drink plenty of fluids -- three to four quarts a day. Occasionally, a bladder anesthetic will be prescribed to help stop the feeling of urgency until the antibiotic has a chance to clear the infection. This may cause your urine to be dark orange. Certain urine infections require a culture. If the doctor obtained a culture, the results will be back in two days. You should call to see if a change in treatment is needed. A repeat urinalysis after you finish treatment is often recommended. The physician will let you know if further testing is required. Call the doctor if you develop fever, chills, flank pain, inability to urinate, or blood in the urine. ANTIBIOTIC THERAPY: You have been given an antibiotic prescription. It's important that you take all the medication, unless instructed otherwise by your physician. Failure to complete the entire course can result in relapse of your condition. Common side effects of antibiotics include nausea, intestinal cramping, or diarrhea. Women may develop vaginal yeast infections, and babies can get yeast (thrush) in the mouth following the use of antibiotics. Contact your physician if you develop significant side effects from this medication. Allergy to this antibiotic can result in hives, wheezing, faintness, or itching. If symptoms of allergy occur, stop the medication and call the doctor. TRIMETHOPRIM-SULFA: You have been given a prescription for trimethoprim-sulfa (TMS, Septra, Bactrim). This is a combination antibiotic of the sulfa class, often used for urinary tract infections, middle ear infections, bronchitis, shigella intestinal infection, and Pneumocystis pneumonia. TMS is usually well-tolerated. Occasional side effects include nausea and decreased appetite. Septra is not recommended for infants less than two months of age. Do not take this medication if you have experienced severe side effects or allergy to sulfa medicine. You should stop this medicine at once and contact your physician if you develop any rash, joint pain, shortness of breath, bruising, or jaundice ( yellow color in the skin), or if you develop any other new or unusual symptoms. FOLLOW-UP CARE: If you have been referred to a physician for follow-up care, call the physician s office for an appointment as you were instructed or within the next two days. If you experience worsening or a significant change in your symptoms, notify the physician immediately or return to the Emergency Department at any time for re-evaluation. Prescriptions: Sulfamethoxazole/Trimethoprim [Bactrim Ds Tablet] 1 tab PO BID #14 tablet Referrals: ELYSE BOOTH MD [Primary Care Provider] - Follow up as needed
[2018-02-11] MEDS ORDERED: SULFAMETHOXAZOLE/TRIMETHOPRIM 800-160 MG TABLET PO ONE (18:14)
[2018-02-11 20:55] VITALS: BP 145/58
--- NOTE | 2018-02-12 10:40 | EKG REPORT ---
SEVERITY:- BORDERLINE ECG - SINUS RHYTHM BORDERLINE LEFT AXIS DEVIATION BORDERLINE T ABNORMALITIES, ANT-LAT LEADS : Confirmed by: Chika Brown 12-Feb-2018 10:39:31
== END 2018-02-11 20:55 | disposition home or self-care (01) ==
LOC: ER 14:37
DX: S00.83XA Contusion of other part of head, initial encounter (principal); S00.511A Abrasion of lip, initial encounter; N39.0 Urinary tract infection, site not specified; W19.XXXA Unspecified fall, initial encounter; Y92.10 Unspecified residential institution as the place of occurrence of the external cause; Z88.0 Allergy status to penicillin; I10 Essential (primary) hypertension
CPT/HCPCS: 93005; 99285; 36415; 87086; 82553; 82550; 85025; 87088; 80053; 81001; 84484; 87186; 80307; 70450; 70486; 72125; 93010; A9270

== ENCOUNTER 2018-03-09 09:36 | Emergency (ER) | payer MEDICARE ==
[2018-03-09 10:08] LABS: ABSOLUTE BASOPHILS # (AUTO) 0.1 10^3/uL (0.0-0.2); ABSOLUTE EOSINOPHILS # (AUTO) 0.2 10^3/uL (0.0-0.6); ABSOLUTE LYMPHOCYTES (AUTO) 1.3 10^3/uL (0.5-4.7); ABSOLUTE MONOCYTES (AUTO) 0.6 10^3/uL (0.1-1.4); ABSOLUTE NEUT (AUTO) 2.6 10^3/uL (1.7-8.2); BASOPHILS % (AUTO) 1.1 % (0-2); EOSINOPHILS % (AUTO) 5.2 % (0-6); HEMATOCRIT 29.7 % (36.0-47.0); HEMOGLOBIN 9.7 g/dL (12.0-15.5); LYMPHOCYTES % (AUTO) 27.9 % (13-45); MEAN CORPUSCULAR HEMOGLOBIN 25.8 pg (27.0-33.4); MEAN CORPUSCULAR HGB CONC 32.5 g/dL (32.0-36.0); MEAN CORPUSCULAR VOLUME 79 fl (80-97); MONOCYTES % (AUTO) 11.6 % (3-13); PLATELET COUNT 186 10^3/uL (150-450); RED BLOOD COUNT 3.76 10^6/uL (3.72-5.28); RED CELL DISTRIBUTION WIDTH 16.3 % (11.5-14.0); SEGMENTED NEUTROPHILS % (AUTO) 54.2 % (42-78); TOTAL CELLS COUNTED % (AUTO) 100 %; WHITE BLOOD COUNT 4.8 10^3/uL (4.0-10.5)
[2018-03-09 10:11] LABS: AMORPHOUS SEDIMENT,URINE TRACE /HPF; APPEARANCE,URINE CLOUDY; BILIRUBIN,URINE NEGATIVE (NEGATIVE); COLOR,URINE YELLOW; GLUCOSE, URINE NEGATIVE (NEGATIVE); KETONES,URINE NEGATIVE (NEGATIVE); LEUKOCYTE ESTERASE,URINE NEGATIVE (NEGATIVE); NITRITE,URINE NEGATIVE (NEGATIVE); PROTEIN,URINE NEGATIVE (NEGATIVE); URINE SPECIFIC GRAVITY 1.014; UROBILINOGEN,URINE NEGATIVE mg/dL (<2.0)
[2018-03-09 10:15] LABS: INTERNATIONAL RATION (INR) 0.99; PROTHROMBIN TIME 13.6 SEC (11.4-15.4)
[2018-03-09 10:35] LABS: ALANINE AMINOTRANSFERASE 9 U/L (9-52); ALBUMIN 3.3 g/dL (3.5-5.0); ALKALINE PHOSPHATASE 76 U/L (38-126); ANION GAP 7 (5-19); ASPARTATE AMINO TRANSFERASE 18 U/L (14-36); BILIRUBIN,DIRECT 0.2 mg/dL (0.0-0.4); BILIRUBIN,TOTAL 0.3 mg/dL (0.2-1.3); BLOOD UREA NITROGEN 23 mg/dL (7-20); CALCIUM 9.4 mg/dL (8.4-10.2); CARBON DIOXIDE 32 mmol/L (22-30); CHLORIDE 107 mmol/L (98-107); GLUCOSE 111 mg/dL (75-110); POTASSIUM 4.2 mmol/L (3.6-5.0); SODIUM 145.7 mmol/L (137-145); TOTAL PROTEIN 6.3 g/dL (6.3-8.2)
[2018-03-09 11:11] LABS: FREE T4 (FREE THYROXINE) 1.81 ng/dL (0.78-2.19)
--- NOTE | 2018-03-09 11:11 | RADIOLOGY REPORT (SQ) ---
EXAM DESCRIPTION: CHEST SINGLE VIEW COMPLETED DATE/TIME: 03/09/2018 10:54 am REASON FOR STUDY: Not feeling well COMPARISON: None. EXAM PARAMETERS: NUMBER OF VIEWS: One view. TECHNIQUE: Single frontal radiographic view of the chest acquired. RADIATION DOSE: NA LIMITATIONS: None. FINDINGS: LUNGS AND PLEURA: No opacities, masses or pneumothorax. No pleural effusion. MEDIASTINUM AND HILAR STRUCTURES: No masses. Contour normal. HEART AND VASCULAR STRUCTURES: Heart normal in size. Normal vasculature. BONES: No acute findings. HARDWARE: None in the chest. OTHER: No other significant finding. IMPRESSION: NO ACUTE RADIOGRAPHIC FINDING IN THE CHEST. TECHNICAL DOCUMENTATION: JOB ID: [id number] [employer]- All Rights Reserved Reading location - IP/workstation name: [email or web address]
[2018-03-09 11:25] LABS: THYROID STIMULATING HORMONE 7.81 uIU/mL (0.47-4.68)
[2018-03-09 11:33] LABS: VENOUS BLOOD BASE EXCESS 4.2 mmol/L; VENOUS BLOOD HCO3 30.3 mmol/L (20-32); VENOUS BLOOD PCO2 53.5 mmHg (35-63); VENOUS BLOOD PH 7.37 (7.30-7.42)
--- NOTE | 2018-03-09 14:02 | ER Document Report ---
ED General - General Chief Complaint: Urinary Problem Stated Complaint: URINARY ISSUES Time Seen by Provider: 03/09/18 10:18 Notes: Patient is a resident of [facility] and she was brought over here today to be evaluated because she was not feeling well. Staff at the facility think the patient may have a UTI because she is acted this way in the past when she has had a UTI. Patient is a very quiet patient and it is difficult to hear what she says at times. She is complaining of pain in her lower back and down her hips. She has not had a fall or injury. She does not walk. Patient denies any fever. I am piecing together this patient's past history from the records sent from [facility]. There are no family members here. Patient supposedly has had a stroke previously. Has hypothyroid. Anemia. Hypertension. Her mental status is described as confused, wheelchair confined, hard of hearing, slurred speech. TRAVEL OUTSIDE OF THE [place] 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 Patient is a poor historian and is difficult to put together a reasonable review of systems with no more information available. EENT: Denies eye, ear, nose or mouth or throat pain or other symptoms. CARDIOVASCULAR: Denies chest pain. RESPIRATORY: Denies cough, chest congestion, or shortness of breath. GASTROINTESTINAL: Denies abdominal pain or nausea, vomiting, or diarrhea. GENITOURINARY: Denies difficulty or painful urinating, urinary frequency, blood in urine. MUSCULOSKELETAL: See HPI. Regarding back pain. Denies joint pain or swelling. SKIN: Denies rash or skin lesions. NEUROLOGICAL: Denies LOC or altered mental status. Denies headache. Denies sensory loss or motor deficits. ALL OTHER SYSTEMS REVIEWED AND NEGATIVE. Physical Exam - Vital signs Vitals: Resp BP Pulse Ox 16 120/106 H 90 L 03/09/18 09:44 03/09/18 09:44 03/09/18 09:44 Interpretation: Normal Notes: PHYSICAL EXAMINATION: GENERAL: Well-appearing, in no acute distress. Speaks very softly and is hard to hear. Seems to give appropriate and likely reliable answers. HEAD: Atraumatic, normocephalic. EYES: Pupils equal round and reactive to light, extraocular movements intact. ENT: oropharynx clear without exudates. Moist mucous membranes. NECK: Normal range of motion, supple. LUNGS: Breath sounds clear and equal bilaterally. HEART: Regular rate and rhythm without murmurs. ABDOMEN: Soft, nontender. No guarding or rebound. No masses. BACK: No tenderness throughout entire back. EXTREMITIES: Normal range of motion without pain. NEUROLOGICAL: Normal speech, normal gait. Normal sensory, motor, and reflex exams. Awake, alert, and oriented x3. Cranial nerves normal. PSYCH: Normal mood, normal affect. SKIN: Warm, dry, no rashes. Course - Re-evaluation Re-evalutation: 03/09/18 20:08 Lab studies are all essentially normal. I cannot find any significant evidence of infections anywhere. Urine looks clear. I have cultured the urine. - Vital Signs Vital signs: Temp Pulse Resp BP Pulse Ox 17 163/72 H 92 03/09/18 14:45 03/09/18 14:45 03/09/18 14:45 - Laboratory Result Diagrams: 03/09/18 09:52 03/09/18 09:52 Laboratory results interpreted by me: 03/09/18 03/09/18 03/09/18 09:41 09:52 09:52 Hgb 9.7 L Hct 29.7 L MCV 79 L MCH 25.8 L RDW 16.3 H Sodium 145.7 H Carbon Dioxide 32 H BUN 23 H Est GFR ( Amer) 57 L Est GFR (Non-Af Amer) 47 L Glucose 111 H POC Glucose Albumin 3.3 L TSH 7.81 H 03/09/18 09:56 Hgb Hct MCV MCH RDW Sodium Carbon Dioxide BUN Est GFR ( Amer) Est GFR (Non-Af Amer) Glucose POC Glucose 125 H Albumin TSH Discharge - Discharge Clinical Impression: Normal exam Condition: Stable Disposition: [facility] Additional Instructions: NORMAL EXAM AND WORKUP: At this time, your examination and workup show no significant abnormality. No significant abnormal physical findings were noted. All laboratory, EKG, and imaging (x-ray, CT scans, ultrasound) studies that were ordered show no significant abnormality. Although your examination and all studies that were ordered showed no significant abnormal finding, there are no examinations and no studies that are 100% accurate. There is always the possibility that some abnormality could exist and not be detected with physical examination or within the limits and capabilities of laboratory and other studies. You should return or follow up as you were instructed on your visit today for further evaluation if your symptoms do not resolve. FOLLOW-UP CARE: If you have been referred to a physician for follow-up care, call the physician s office for an appointment as you were instructed or within the next two days. If you experience worsening or a significant change in your symptoms, notify the physician immediately or return to the Emergency Department at any time for re-evaluation. Referrals: ELYSE BOOTH MD [Primary Care Provider] - Follow up as needed
[2018-03-09 14:57] VITALS: BP 163/72
--- NOTE | 2018-03-09 21:26 | EKG REPORT ---
SEVERITY:- BORDERLINE ECG - SINUS RHYTHM LEFT AXIS DEVIATION BORDERLINE T WAVE ABNORMALITIES : Confirmed by: Venice Bateman MD 09-Mar-2018 21:25:51
== END 2018-03-09 14:58 ==
LOC: ER 09:36
DX: M54.5 Low back pain (principal); M25.559 Pain in unspecified hip; I10 Essential (primary) hypertension; Z99.3 Dependence on wheelchair; Z88.0 Allergy status to penicillin; Z87.440 Personal history of urinary (tract) infections
CPT/HCPCS: 36415; 51701; 71045; 80053; 81001; 82803; 82962; 83605; 84439; 84443; 85025; 85610; 87040; 87086; 93005; 93010; 99284

== ENCOUNTER 2018-03-16 15:19 | Emergency (ER) | payer MEDICARE ==
--- NOTE | 2018-03-16 15:51 | ER Document Report ---
ED General - General Chief Complaint: Medical Clearance Stated Complaint: LEG PAIN Time Seen by Provider: 03/16/18 15:42 Mode of Arrival: Medic Information source: Patient Notes: 87-year-old female brought to the emergency department from nursing facility for lower extremity pain and swelling. The nurse states that she is noticed increased swelling to both legs. Patient does have a history of peripheral neuropathy. Patient states that this has been chronic for the past couple of years. She denies any new symptoms. Patient is on blood thinners. She denies any chest pain, shortness of breath, abdominal pain, nausea, vomiting, diarrhea, constipation, dysuria, hematuria. TRAVEL OUTSIDE OF THE [place] IN LAST 30 DAYS: No - HPI Onset: Other - years Onset/Duration: Persistent Quality of pain: Achy Severity: Mild Pain Level: 1 Context: 87-year-old female with a history of peripheral neuropathy presents emergency department with complaints of bilateral leg pain. Patient states that this is been present for years. Patient does not understand why she was sent to the emergency department. She is awake, alert, oriented x3. Patient has no other complaints. She denies any trauma, injury, signs of infection. Patient is on Plavix. Associated symptoms: None Exacerbated by: Denies Relieved by: Denies Similar symptoms previously: Yes Recently seen / treated by doctor: No - Related Data Allergies/Adverse Reactions: Penicillins Allergy (Verified 03/16/18 15:42) prochlorperazine [From Compazine] Allergy (Verified 03/16/18 15:42) Past Medical History - General Information source: Patient - Social History Smoking Status: Never Smoker Family History: Reviewed & Not Pertinent - Past Medical History Cardiac Medical History: Reports: Hx Hypertension Pulmonary Medical History: Reports: Hx Bronchitis Neurological Medical History: Reports: Hx Cerebrovascular Accident Endocrine Medical History: Reports: Hx Diabetes Mellitus Type 2 - prediabetic per records Renal/ Medical History: Denies: Hx Peritoneal Dialysis GI Medical History: Reports: Hx Gastroesophageal Reflux Disease Review of Systems - Review of Systems Constitutional: No symptoms reported EENT: No symptoms reported Cardiovascular: No symptoms reported Respiratory: No symptoms reported Gastrointestinal: No symptoms reported Genitourinary: No symptoms reported Musculoskeletal: Muscle pain Skin: No symptoms reported Hematologic/Lymphatic: No symptoms reported Neurological/Psychological: No symptoms reported -: Yes All other systems reviewed and negative Physical Exam - Vital signs Vitals: Resp BP Pulse Ox 17 138/67 H 95 03/16/18 15:32 03/16/18 15:32 03/16/18 15:32 - Notes Notes: PHYSICAL EXAMINATION: GENERAL: Well-appearing, well-nourished and in no acute distress. HEAD: Atraumatic, normocephalic. EYES: Pupils equal round and reactive to light, extraocular movements intact, conjunctiva are normal. ENT: Nares patent, oropharynx clear without exudates. Moist mucous membranes. NECK: Normal range of motion, supple without lymphadenopathy LUNGS: Breath sounds clear to auscultation bilaterally and equal. No wheezes rales or rhonchi. HEART: Regular rate and rhythm without murmurs ABDOMEN: Soft, nontender, nondistended abdomen. No guarding, no rebound. No masses appreciated. Female : deferred Musculoskeletal: Normal range of motion, no pitting or edema. No cyanosis. Bilateral calf tenderness to palpation. 2+ dorsalis pedis and posterior radialis pulses. NEUROLOGICAL: Cranial nerves grossly intact. Normal speech. Normal sensory, motor exams PSYCH: Normal mood, normal affect. SKIN: Warm, Dry, normal turgor, no rashes or lesions noted. Course - Re-evaluation Re-evalutation: 03/16/18 17:23 Imaging obtained. No DVT appreciated. There is no lower extremity pitting edema. I will discharge the patient back to the nursing facility. Patient states that she has chronic leg pain secondary to peripheral neuropathy. She states that this is been present for years. She states that her pain is not new. - Vital Signs Vital signs: Temp Pulse Resp BP Pulse Ox 97.6 F 17 138/67 H 95 03/16/18 15:41 03/16/18 15:32 03/16/18 15:32 03/16/18 15:32 Discharge - Discharge Clinical Impression: Chronic leg pain Qualifiers: Laterality: bilateral Qualified Code(s): M79.604 - Pain in right leg; M79.605 - Pain in left leg; G89.29 - Other chronic pain Condition: Good Disposition: HOME, SELF-CARE Instructions: Leg Pain Nonspecific ([facility]) Referrals: ELYSE BOOTH MD [Primary Care Provider] - Follow up as needed
[2018-03-16 18:59] VITALS: BP 153/56
--- NOTE | 2018-03-17 08:35 | XCELERA REPORT ---
[address] [facility] [address] Lower Extremity Venous Evaluation Procedure: Color flow and duplex imaging bilaterally of the veins of the lower extremities as well as the Common Femoral veins. Right Sided Venous Evaluation Normal vessel filling wall to wall, compression and augmentation as well as Colour flow down to the infrageniculate veins. Left Sided Venous Evaluation Normal vessel filling wall to wall, compression and augmentation as well as Colour flow down to the infrageniculate veins. Interpretation Summary No duplex evidence of DVT or obstruction in the bilateral lower extremities. Name: YANDEL SUN Age: 87 yrs Gender: Female : 1930 Patient Status: Emergency Patient Location: ER Study Date: 03/16/2018 05:03 PM Reason For Study: bilateral calf pain Ordering Physician: SIDNEY FELTON Performed By: Maya Araujo : SIDNEY FELTON > Kirill Acosta
== END 2018-03-16 22:00 | disposition home or self-care (01) ==
LOC: ER 15:19
DX: G89.29 Other chronic pain (principal); M79.605 Pain in left leg; M79.604 Pain in right leg; I10 Essential (primary) hypertension; E11.9 Type 2 diabetes mellitus without complications; Z86.73 Personal history of transient ischemic attack (TIA), and cerebral infarction without residual deficits; Z88.0 Allergy status to penicillin
CPT/HCPCS: 93970; 99285

== ENCOUNTER 2018-03-22 19:31 | Emergency (ER) | payer MEDICARE ==
[2018-03-22] MEDS ORDERED: ACETAMINOPHEN 325 MG TABLET PO ONE (19:52)
--- NOTE | 2018-03-22 19:57 | ER Document Report ---
ED General - General Stated Complaint: TREMORS Time Seen by Provider: 03/22/18 19:44 TRAVEL OUTSIDE OF THE U.[place]. IN LAST 30 DAYS: No - HPI Notes: Patient is a 87-year-old female that presents to the emergency department for chief complaint of tiredness. Patient presented by EMS from nursing home facility with a chief complaint of feeling tired and pain in her low back. She has a history of chronic low back pain but has not been given any medication for pain at the halfway yet today. She has a history of low back surgery. She states the pain is in the same location it usually is but is more intense. The pain is worse with movement and relieved some with rest. She denies any fevers, lower extremity numbness or weakness, or bowel or bladder incontinence. 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 Patient also has a tremor which has been getting worse over the last 5 months. EMS states that she is new to this nursing facility and the nurses taking care of her were not familiar with her baseline which is part of why they referred her to the ER for evaluation. Patient denies any change in her tremor to me. She denies any chest pain, shortness of breath. Past Medical History: Hypothyroidism, CAD, anemia, ataxia, tremor Past Surgical History: Reviewed in chart Social History: Denies tobacco Family History: Reviewed and noncontributory for presenting illness Allergies: Reviewed, see documented allergy list. REVIEW OF SYSTEMS: CONSTITUTIONAL : Fatigue No fever No chills No diaphoresis No recent illness EENT: No vision changes No congestion No sore throat CARDIOVASCULAR: No chest pain No palpitations RESPIRATORY: No shortness of breath No cough No difficulty breathing GASTROINTESTINAL: No abdominal pain No nausea No vomiting No diarrhea GENITOURINARY: No dysuria No hematuria No difficulty urinating MUSCULOSKELETAL: back pain No leg pain No arm pain SKIN: No rashes No lesions LYMPHATIC: No swollen, enlarged glands. NEUROLOGICAL: No lightheadedness No headache No weakness No paresthesias Tremor PSYCHIATRIC: No anxiety No depression PHYSICAL EXAMINATION: Vital signs reviewed, nursing noted reviewed. GENERAL: Somnolent, well-nourished and in no acute distress. HEAD: Atraumatic, normocephalic. EYES: Eyes appear normal, extraocular movements intact, sclera anicteric, conjunctiva are normal. ENT: nares patent, oropharynx clear without exudates. Moist mucous membranes. NECK: Normal range of motion, supple without lymphadenopathy LUNGS: Breath sounds clear to auscultation bilaterally and equal. No wheezes rales or rhonchi. HEART: Regular rate and rhythm without murmurs ABDOMEN: Soft, nontender, normoactive bowel sounds. No rebound, guarding, or rigidity. No masses appreciated. EXTREMITIES: Nontender, good range of motion, no pitting or edema. Back: Well-healed midline lumbar scar. No midline thoracic or lumbar tenderness, no bilateral thoracic or lumbar tenderness NEUROLOGICAL: Resting tremor in bilateral upper extremities, no focal neurological deficits. Moves all extremities spontaneously Motor and sensory grossly intact on exam. PSYCH: Normal mood, normal affect. SKIN: Warm, Dry, normal turgor, no rashes or lesions noted on exposed skin - Related Data Allergies/Adverse Reactions: Penicillins Allergy (Verified 03/16/18 15:42) prochlorperazine [From Compazine] Allergy (Verified 03/16/18 15:42) Past Medical History - Social History Smoking Status: Never Smoker Family History: Reviewed & Not Pertinent - Past Medical History Cardiac Medical History: Reports: Hx Hypertension Pulmonary Medical History: Reports: Hx Bronchitis Neurological Medical History: Reports: Hx Cerebrovascular Accident Endocrine Medical History: Reports: Hx Diabetes Mellitus Type 2 - prediabetic per records Renal/ Medical History: Denies: Hx Peritoneal Dialysis GI Medical History: Reports: Hx Gastroesophageal Reflux Disease Physical Exam - Vital signs Vitals: Temp Pulse Resp BP Pulse Ox 97.4 F 73 18 171/69 H 94 03/22/18 19:43 03/22/18 19:43 03/22/18 19:43 03/22/18 19:43 03/22/18 19:43 Course - Re-evaluation Re-evalutation: 03/22/18 19:55 Vitals reviewed. Nursing notes reviewed. Patient is in no acute distress. She does have a tremor at rest which is worse with movement of her arms. This is chronic in nature and she is not complaining of any change in her tremor. She does not have any focal tenderness in her back or overlying erythema or rashes. She has no lower extremity numbness or weakness or saddle anesthesia. I do not suspect cauda equina syndrome, epidural abscess or transverse myelitis, or discitis. Patient was given Tylenol for her chronic low back pain. 03/22/18 22:27 Patient reevaluated and was asleep. She woke easily with verbal stimuli. Patient had been bradycardic while sleeping however her heart rate quickly returned to 78 when she woke up. She states her back pain feels better. She is not having a tremor on reevaluation. Her lab work shows chronic anemia with no change. She has no electrolyte derangement. She has no urinary tract infection or leukocytosis. Patient will be discharged back to nursing home facility in stable condition. Laboratory 03/22/18 03/22/18 03/22/18 20:00 20:00 20:00 WBC 4.7 RBC 4.15 Hgb 10.2 L Hct 32.1 L MCV 77 L MCH 24.6 L MCHC 31.8 L RDW 15.8 H Plt Count 194 Seg Neutrophils % 52.9 Lymphocytes % 30.0 Monocytes % 11.4 Eosinophils % 4.7 Basophils % 1.0 Absolute Neutrophils 2.5 Absolute Lymphocytes 1.4 Absolute Monocytes 0.5 Absolute Eosinophils 0.2 Absolute Basophils 0.0 Sodium 143.2 Potassium 3.9 Chloride 106 Carbon Dioxide 32 H Anion Gap 5 BUN 25 H Creatinine 1.05 Est GFR ( Amer) > 60 Est GFR (Non-Af Amer) 49 L Glucose 101 Calcium 9.7 Total Bilirubin 0.3 Direct Bilirubin 0.2 Neonat Total Bilirubin Not Reportable Neonat Direct Bilirubin Not Reportable Neonat Indirect Bili Not Reportable AST 20 ALT 15 Alkaline Phosphatase 85 Troponin I 0.025 Total Protein 6.6 Albumin 3.6 Urine Color Urine Appearance Urine pH Ur Specific Powers Urine Protein Urine Glucose (UA) Urine Ketones Urine Blood Urine Nitrite Urine Bilirubin Urine Urobilinogen Ur Leukocyte Esterase Urine WBC (Auto) Urine RBC (Auto) Urine Bacteria (Auto) Squamous Epi Cells Auto Amorphous Sediment Auto Urine Mucus (Auto) Urine Ascorbic Acid 03/22/18 20:00 WBC RBC Hgb Hct MCV MCH MCHC RDW Plt Count Seg Neutrophils % Lymphocytes % Monocytes % Eosinophils % Basophils % Absolute Neutrophils Absolute Lymphocytes Absolute Monocytes Absolute Eosinophils Absolute Basophils Sodium Potassium Chloride Carbon Dioxide Anion Gap BUN Creatinine Est GFR ( Amer) Est GFR (Non-Af Amer) Glucose Calcium Total Bilirubin Direct Bilirubin Neonat Total Bilirubin Neonat Direct Bilirubin Neonat Indirect Bili AST ALT Alkaline Phosphatase Troponin I Total Protein Albumin Urine Color YELLOW Urine Appearance CLOUDY Urine pH 7.0 Ur Specific Powers 1.011 Urine Protein NEGATIVE Urine Glucose (UA) NEGATIVE Urine Ketones NEGATIVE Urine Blood NEGATIVE Urine Nitrite NEGATIVE Urine Bilirubin NEGATIVE Urine Urobilinogen NEGATIVE Ur Leukocyte Esterase NEGATIVE Urine WBC (Auto) 1 Urine RBC (Auto) 1 Urine Bacteria (Auto) 3+ Squamous Epi Cells Auto <1 Amorphous Sediment Auto TRACE Urine Mucus (Auto) RARE Urine Ascorbic Acid NEGATIVE - Vital Signs Vital signs: Temp Pulse Resp BP Pulse Ox 97.4 F 73 17 155/63 H 95 03/22/18 19:43 03/22/18 19:43 03/22/18 22:02 03/22/18 21:02 03/22/18 22:02 - Laboratory Result Diagrams: 03/22/18 20:00 03/22/18 20:00 Laboratory results interpreted by me: 03/22/18 03/22/18 20:00 20:00 Hgb 10.2 L Hct 32.1 L MCV 77 L MCH 24.6 L MCHC 31.8 L RDW 15.8 H Carbon Dioxide 32 H BUN 25 H Est GFR (Non-Af Amer) 49 L - EKG Interpretation by Me Additional EKG results interpreted by me: 03/22/18 20:29 Interpreted by myself 2013: Normal sinus rhythm, rate 71, baseline artifact, left axis, no ST elevation Discharge - Discharge Clinical Impression: Tremor Back pain Qualifiers: Back pain location: low back pain Chronicity: chronic Back pain laterality: right Sciatica presence: without sciatica Qualified Code(s): M54.5 - Low back pain; G89.29 - Other chronic pain Fatigue Qualifiers: Fatigue type: unspecified Qualified Code(s): R53.83 - Other fatigue Condition: Stable Disposition: HOME, SELF-CARE Instructions: Low Back Pain ([facility]) Additional Instructions: Please return to the emergency department if you have any worsening, or concern of your symptoms. Please return to the emergency department if you develop chest pain, difficulty breathing, severe abdominal pain, or ongoing vomiting. Please follow-up with your primary care physician in 2-3 days and any other recommended physicians. If prescribed, take all medications as directed. If you have any questions or concerns do not hesitate to return the emergency department for evaluation. [] Referrals: ELYSE BOOTH MD [Primary Care Provider] - Follow up tomorrow
[2018-03-22 20:27] LABS: ABSOLUTE EOSINOPHILS # (AUTO) 0.2 10^3/uL (0.0-0.6); ABSOLUTE LYMPHOCYTES (AUTO) 1.4 10^3/uL (0.5-4.7); ABSOLUTE MONOCYTES (AUTO) 0.5 10^3/uL (0.1-1.4); ABSOLUTE NEUT (AUTO) 2.5 10^3/uL (1.7-8.2); EOSINOPHILS % (AUTO) 4.7 % (0-6); HEMATOCRIT 32.1 % (36.0-47.0); HEMOGLOBIN 10.2 g/dL (12.0-15.5); MEAN CORPUSCULAR HEMOGLOBIN 24.6 pg (27.0-33.4); MEAN CORPUSCULAR HGB CONC 31.8 g/dL (32.0-36.0); MEAN CORPUSCULAR VOLUME 77 fl (80-97); MONOCYTES % (AUTO) 11.4 % (3-13); PLATELET COUNT 194 10^3/uL (150-450); RED BLOOD COUNT 4.15 10^6/uL (3.72-5.28); RED CELL DISTRIBUTION WIDTH 15.8 % (11.5-14.0); SEGMENTED NEUTROPHILS % (AUTO) 52.9 % (42-78); TOTAL CELLS COUNTED % (AUTO) 100 %; WHITE BLOOD COUNT 4.7 10^3/uL (4.0-10.5)
[2018-03-22 20:45] LABS: ALANINE AMINOTRANSFERASE 15 U/L (9-52); ALBUMIN 3.6 g/dL (3.5-5.0); ALKALINE PHOSPHATASE 85 U/L (38-126); ANION GAP 5 (5-19); ASPARTATE AMINO TRANSFERASE 20 U/L (14-36); BILIRUBIN,DIRECT 0.2 mg/dL (0.0-0.4); BILIRUBIN,TOTAL 0.3 mg/dL (0.2-1.3); BLOOD UREA NITROGEN 25 mg/dL (7-20); CALCIUM 9.7 mg/dL (8.4-10.2); CARBON DIOXIDE 32 mmol/L (22-30); CHLORIDE 106 mmol/L (98-107); GLUCOSE 101 mg/dL (75-110); POTASSIUM 3.9 mmol/L (3.6-5.0); SODIUM 143.2 mmol/L (137-145); TOTAL PROTEIN 6.6 g/dL (6.3-8.2)
[2018-03-22 21:14] LABS: AMORPHOUS SEDIMENT,URINE TRACE /HPF; APPEARANCE,URINE CLOUDY; BILIRUBIN,URINE NEGATIVE (NEGATIVE); COLOR,URINE YELLOW; GLUCOSE, URINE NEGATIVE (NEGATIVE); KETONES,URINE NEGATIVE (NEGATIVE); LEUKOCYTE ESTERASE,URINE NEGATIVE (NEGATIVE); NITRITE,URINE NEGATIVE (NEGATIVE); PROTEIN,URINE NEGATIVE (NEGATIVE); URINE SPECIFIC GRAVITY 1.011; UROBILINOGEN,URINE NEGATIVE mg/dL (<2.0)
[2018-03-23 03:29] VITALS: BP 135/49
--- NOTE | 2018-03-23 10:24 | EKG REPORT ---
SEVERITY:- ABNORMAL ECG - ATRIAL FIBRILLATION, HR FAIRLY REGULAR, CANNOT R/O SINUS WITH ARTIFACTS, REC REPEAT EKG BORDERLINE LEFT AXIS DEVIATION NONSPECIFIC T ABNORMALITIES, LATERAL LEADS : Confirmed by: Chika Brown 23-Mar-2018 10:23:36
== END 2018-03-23 03:29 | disposition home or self-care (01) ==
LOC: ER 19:31
DX: R25.1 Tremor, unspecified (principal); M54.5 Low back pain; G89.29 Other chronic pain; R53.83 Other fatigue; I25.10 Atherosclerotic heart disease of native coronary artery without angina pectoris; I10 Essential (primary) hypertension; R73.03 Prediabetes
CPT/HCPCS: 93005; 99284; 36415; 85025; 80053; 81001; 84484; 93010; A9270

== ENCOUNTER 2018-04-12 16:11 | Inpatient (IN) | payer MEDICARE ==
[2018-04-12 16:45] LABS: ABSOLUTE LYMPHOCYTES (AUTO) 1.2 10^3/uL (0.5-4.7); ABSOLUTE MONOCYTES (AUTO) 1.5 10^3/uL (0.1-1.4); ABSOLUTE NEUT (AUTO) 9.7 10^3/uL (1.7-8.2); BASOPHILS % (AUTO) 0.2 % (0-2); HEMATOCRIT 32.5 % (36.0-47.0); HEMOGLOBIN 10.3 g/dL (12.0-15.5); LYMPHOCYTES % (AUTO) 9.4 % (13-45); MEAN CORPUSCULAR HEMOGLOBIN 23.7 pg (27.0-33.4); MEAN CORPUSCULAR HGB CONC 31.7 g/dL (32.0-36.0); MEAN CORPUSCULAR VOLUME 75 fl (80-97); PLATELET COUNT 228 10^3/uL (150-450); RED BLOOD COUNT 4.34 10^6/uL (3.72-5.28); RED CELL DISTRIBUTION WIDTH 15.9 % (11.5-14.0); SEGMENTED NEUTROPHILS % (AUTO) 78.4 % (42-78); TOTAL CELLS COUNTED % (AUTO) 100 %; WHITE BLOOD COUNT 12.4 10^3/uL (4.0-10.5)
[2018-04-12 17:08] LABS: ALANINE AMINOTRANSFERASE 12 U/L (9-52); ALBUMIN 3.6 g/dL (3.5-5.0); ALKALINE PHOSPHATASE 103 U/L (38-126); ANION GAP 10 (5-19); ASPARTATE AMINO TRANSFERASE 25 U/L (14-36); BILIRUBIN,DIRECT 0.4 mg/dL (0.0-0.4); BILIRUBIN,TOTAL 0.6 mg/dL (0.2-1.3); BLOOD UREA NITROGEN 26 mg/dL (7-20); CALCIUM 9.4 mg/dL (8.4-10.2); CARBON DIOXIDE 28 mmol/L (22-30); CHLORIDE 103 mmol/L (98-107); CREATINE KINASE 234 U/L (30-135); GLUCOSE 178 mg/dL (75-110); POTASSIUM 4.4 mmol/L (3.6-5.0); SODIUM 140.8 mmol/L (137-145); TOTAL PROTEIN 6.7 g/dL (6.3-8.2)
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
[2018-04-12 17:20] LABS: APPEARANCE,URINE CLOUDY; BILIRUBIN,URINE NEGATIVE (NEGATIVE); CALCIUM OXALATE CRYSTALS,URINE RARE /HPF; GLUCOSE, URINE NEGATIVE (NEGATIVE); KETONES,URINE TRACE mg/dL (NEGATIVE); LEUKOCYTE ESTERASE,URINE NEGATIVE (NEGATIVE); NITRITE,URINE NEGATIVE (NEGATIVE); PROTEIN,URINE NEGATIVE (NEGATIVE); URINE SPECIFIC GRAVITY 1.017
[2018-04-12 17:24] LABS: COLOR,URINE YELLOW
[2018-04-12 17:28] LABS: CREATINE KINASE MB 8.65 ng/mL (<4.55)
[2018-04-12 17:29] LABS: TROPONIN I 0.155 ng/mL
--- NOTE | 2018-04-12 17:56 | EKG REPORT ---
SEVERITY:- ABNORMAL ECG - SINUS RHYTHM ATRIAL PREMATURE COMPLEX BORDERLINE LEFT AXIS DEVIATION CONSIDER ANTEROSEPTAL INFARCT BORDERLINE T ABNORMALITIES, ANTERIOR LEADS : Confirmed by: Chika Brown 12-Apr-2018 17:55:50
[2018-04-12] MEDS ORDERED: NORMAL SALINE 1000 ML 1,000 ML IV ONE (19:04)
--- NOTE | 2018-04-12 19:22 | RADIOLOGY REPORT (SQ) ---
EXAM DESCRIPTION: CHEST SINGLE VIEW COMPLETED DATE/TIME: 04/12/2018 7:14 pm REASON FOR STUDY: Short of breath, hypoxic COMPARISON: 03/09/2018 EXAM PARAMETERS: NUMBER OF VIEWS: One view. TECHNIQUE: Single frontal radiographic view of the chest acquired. RADIATION DOSE: NA LIMITATIONS: None. FINDINGS: LUNGS AND PLEURA: There is slight haziness in the right upper lobe. MEDIASTINUM AND HILAR STRUCTURES: No masses. Contour normal. HEART AND VASCULAR STRUCTURES: Heart normal in size. Normal vasculature. BONES: No acute findings. HARDWARE: None in the chest. OTHER: No other significant finding. IMPRESSION: Cannot exclude a minimal right upper lobe pneumonia. TECHNICAL DOCUMENTATION: JOB ID: [id number] [employer]- All Rights Reserved Reading location - IP/workstation name: [email or web address]
[2018-04-12] MEDS ORDERED: LEVOFLOXACIN 750 MG/D5W RTU 750 MG/150 ML RTUPB IV ONE (19:41)
[2018-04-12 20:29] LABS: CREATINE KINASE MB 12.5 ng/mL (<4.55)
[2018-04-12 20:31] LABS: TROPONIN I 0.208 ng/mL
[2018-04-12] MEDS ORDERED: ENOXAPARIN SODIUM INJ 80 MG/0.8 ML DISP.SYRIN SUBCUT ONE (20:51)
[2018-04-12] MEDS ORDERED: NITROGLYCERIN 5 MG (0.2 MG/HR) PATCH.TD24 TD ONE (21:26)
[2018-04-12] MEDS ORDERED: IPRATROPIUM/ALBUTEROL 0.5-2.5 MG/3 ML AMPUL NEB PRN (21:27)
[2018-04-12] MEDS ORDERED: GUAIFENESIN SYRP 200 MG/10 ML UDC PO PRN (21:27)
[2018-04-12] MEDS ORDERED: ASPIRIN 81 MG TABLET, CHEWABLE PO ONE (21:27)
[2018-04-12] MEDS ORDERED: CLOPIDOGREL BISULFATE 75 MG TABLET PO ONE (21:32)
[2018-04-12 21:39] LABS: ABSOLUTE RETICS # 0.066 10^6/uL (0.028-0.122); RETICULOCYTE COUNT (AUTO) 1.52 % (0.66-2.85)
[2018-04-12 21:56] LABS: IRON(TIBC) 16.3 ug/dL (37-170)
[2018-04-12] MEDS ORDERED: CLOPIDOGREL BISULFATE 75 MG TABLET ONE (22:15)
[2018-04-12] MEDS ORDERED: ASPIRIN 325 MG TABLET ONE (22:15)
[2018-04-12] MEDS ORDERED: IPRATROPIUM/ALBUTEROL 0.5-2.5 MG/3 ML AMPUL NEB ONE (22:45)
[2018-04-13] MEDS: NORMAL SALINE 1000 ML 1,000 ML IV PRN (00:09)
--- NOTE | 2018-04-13 04:53 | PDOC H&P ---
History of Present Illness Admission Date/PCP: 04/12/18 21:03 ELYSE BOOTH MD Patient complains of: Shortness of breath History of Present Illness: YANDEL SUN is a 87 year old female who is a resident of [facility] assisted living in [facility] Who is a vincent of the [facility] with history of dementia and unable to supply history and subsequently obtained from the record. History is thought to include coronary artery disease with a stent on aspirin and Plavix, dementia, CVA, diabetes and bronchitis. Patient found by assisted living staff with chest pain and shortness of breath, oxygen saturations of 84% on room air without a baseline need for oxygen. In the emergency room she is found with tachypnea, right upper lobe infiltrate and non-ST elevation MO with a troponin of 0.15. She is started on empiric antibiotics, aspirin, Plavix and Lovenox then referred to the hospitalist for admission. She is currently pain-free. Past Medical History Cardiac Medical History: Reports: Coronary Artery Disease, Hypertension, Peripheral Vascular Disease Pulmonary Medical History: Reports: Bronchitis Endocrine Medical History: Reports: Diabetes Mellitus Type 2 - Prediabetes, Hypothyroidism, Other - Vitamin D deficiency GI Medical History: Reports: Gastroesophageal Reflux Disease Psychiatric Medical History: Reports: Dementia Hematology: Reports: Anemia Past Surgical History Past Surgical History: Reports: Cardiac Catheterization, Coronary Stent Social History Information Source: [facility] Records Lives with: [facility] Smoking Status: Former Smoker Frequency of Alcohol Use: None - Advance Directive Resuscitation Status: Full Code Family History Family History: Other - Unobtainable Parental Family History Reviewed: Yes Children Family History Reviewed: Yes Sibling(s) Family History Reviewed.: Yes Medication/Allergy Home Medications: Amlodipine Besylate [Norvasc 5 mg Tablet] 5 mg PO DAILY 04/12/18 Aspirin [Ecotrin 325 mg EC Tablet] 325 mg PO DAILY 04/12/18 Calcium Carbonate/Vitamin D3 [Calcium 600 + Vit D 400 Tablet] 1 tab PO BID 04/12/18 Cholecalciferol (Vitamin D3) [Vitamin D3] 5,000 unit PO DAILY 04/12/18 Clopidogrel Bisulfate [Plavix 75 mg Tablet] 75 mg PO DAILY 04/12/18 Docusate Sodium [Colace 100 mg Capsule] 2 cap PO DAILY 04/12/18 Escitalopram Oxalate [Lexapro 10 mg Tablet] 10 mg PO DAILY 04/12/18 Levothyroxine Sodium [Synthroid] 125 mcg PO Q6AM 04/12/18 Losartan Potassium [Cozaar 50 mg Tablet] 50 mg PO DAILY 04/12/18 Pantoprazole Sodium [Protonix] 40 mg PO DAILY 04/12/18 Risperidone [Risperdal] 0.5 mg PO Q8 04/12/18 Trazodone HCl [Desyrel] 150 mg PO QHS 04/12/18 Allergies/Adverse Reactions: Penicillins Allergy (Verified 04/12/18 18:22) prochlorperazine [From Compazine] Allergy (Verified 04/12/18 18:22) Review of Systems ROS unobtainable: Due to mental status - Dementia Physical Exam Vital Signs: Temp Pulse Resp BP Pulse Ox 98.3 F 63 16 118/47 L 93 04/13/18 03:54 04/13/18 03:54 04/13/18 03:54 04/13/18 03:54 04/13/18 03:54 Intake & Output 04/11/18 04/12/18 04/13/18 11:59 11:59 11:59 Intake Total 1880 Balance 1880 Weight 75.8 kg General appearance: PRESENT: cooperative, hard of hearing, other - Chronically ill-appearing with cachexia, awake alert oriented x1. ABSENT: no acute distress, disheveled Head exam: PRESENT: atraumatic, normocephalic Eye exam: PRESENT: conjunctiva pink, EOMI, PERRLA. ABSENT: scleral icterus Ear exam: PRESENT: normal external ear exam Mouth exam: PRESENT: moist, tongue midline Neck exam: ABSENT: carotid bruit, JVD, lymphadenopathy, thyromegaly Respiratory exam: PRESENT: clear to auscultation nohemi, crackles. ABSENT: rales, rhonchi, tachypnea, wheezes Cardiovascular exam: PRESENT: RRR, +S1, +S2, systolic murmur. ABSENT: gallop Pulses: PRESENT: normal dorsalis pedis pul Vascular exam: PRESENT: normal capillary refill GI/Abdominal exam: PRESENT: normal bowel sounds, soft. ABSENT: distended, guarding, mass, organolmegaly, rebound, tenderness Rectal exam: PRESENT: deferred Extremities exam: PRESENT: full ROM. ABSENT: calf tenderness, clubbing, pedal edema Neurological exam: PRESENT: alert, CN II-XII grossly intact. ABSENT: motor sensory deficit Psychiatric exam: PRESENT: appropriate affect, normal mood. ABSENT: homicidal ideation, suicidal ideation Skin exam: PRESENT: dry, intact, warm. ABSENT: cyanosis, rash Results Laboratory Results: 04/12/18 16:29 04/12/18 16:29 04/12/18 04/12/18 04/12/18 16:29 16:29 16:29 WBC 12.4 H RBC 4.34 Hgb 10.3 L Hct 32.5 L MCV 75 L MCH 23.7 L MCHC 31.7 L RDW 15.9 H Plt Count 228 Seg Neutrophils % 78.4 H Lymphocytes % 9.4 L Monocytes % 12.0 Eosinophils % 0.0 Basophils % 0.2 Absolute Neutrophils 9.7 H Absolute Lymphocytes 1.2 Absolute Monocytes 1.5 H Absolute Eosinophils 0.0 Absolute Basophils 0.0 Retic Count (auto) 1.52 Absolute Retic 0.066 Sodium 140.8 Potassium 4.4 Chloride 103 Carbon Dioxide 28 Anion Gap 10 BUN 26 H Creatinine 1.21 Est GFR ( Amer) 51 L Est GFR (Non-Af Amer) 42 L Glucose 178 H Lactic Acid Calcium 9.4 Iron TIBC % Saturation Ferritin Total Bilirubin 0.6 AST 25 ALT 12 Alkaline Phosphatase 103 Total Protein 6.7 Albumin 3.6 Vitamin B12 Folate Urine Color Urine Appearance Urine pH Ur Specific [place] Urine Protein Urine Glucose (UA) Urine Ketones Urine Blood Urine Nitrite Ur Leukocyte Esterase Urine WBC (Auto) Urine RBC (Auto) 04/12/18 04/12/18 04/12/18 16:34 17:00 17:30 WBC RBC Hgb Hct MCV MCH MCHC RDW Plt Count Seg Neutrophils % Lymphocytes % Monocytes % Eosinophils % Basophils % Absolute Neutrophils Absolute Lymphocytes Absolute Monocytes Absolute Eosinophils Absolute Basophils Retic Count (auto) Absolute Retic Sodium Potassium Chloride Carbon Dioxide Anion Gap BUN Creatinine Est GFR ( Amer) Est GFR (Non-Af Amer) Glucose Lactic Acid 2.0 Calcium Iron 16.3 L TIBC 321 % Saturation 5 Ferritin 32.20 Total Bilirubin AST ALT Alkaline Phosphatase Total Protein Albumin Vitamin B12 459.0 Folate 12.80 Urine Color YELLOW Urine Appearance CLOUDY Urine pH 5.0 Ur Specific [place] 1.017 Urine Protein NEGATIVE Urine Glucose (UA) NEGATIVE Urine Ketones TRACE H Urine Blood NEGATIVE Urine Nitrite NEGATIVE Ur Leukocyte Esterase NEGATIVE Urine WBC (Auto) 4 Urine RBC (Auto) 3 04/12/18 04/12/18 04/12/18 16:29 16:29 19:40 Creatine Kinase 234 H CK-MB (CK-2) 8.65 H 12.50 H Troponin I 0.155 0.208 NT-Pro-B Natriuret Pep 1370 H 04/12/18 19:40 Creatine Kinase 360 H CK-MB (CK-2) Troponin I NT-Pro-B Natriuret Pep Impressions: Chest X-Ray 04/12/18 18:47 IMPRESSION: Cannot exclude a minimal right upper lobe pneumonia. Assessment & Plan - Diagnosis (1) Pneumonia Qualifiers: Pneumonia type: due to unspecified organism Laterality: right Lung location: upper lobe of lung Qualified Code(s): J18.1 - Lobar pneumonia, unspecified organism Is this a current diagnosis for this admission?: Yes Plan: Possibly healthcare associated, empiric antibiotics initiated, Flonase, incentive spirometry, follow-up CBC and blood culture (2) Non-STEMI (non-ST elevated myocardial infarction) Is this a current diagnosis for this admission?: Yes Plan: Conservative management given comorbidities. Lovenox, aspirin and Plavix initiated. Follow-up serial cardiac enzymes (3) Dyspnea Qualifiers: Dyspnea type: unspecified Qualified Code(s): R06.00 - Dyspnea, unspecified Is this a current diagnosis for this admission?: Yes Plan: Secondary to #1, supplemental oxygen - Time Time Spent: 50 to 70 Minutes - Inpatient Certification Medical Necessity: Need Close Monitoring Due to Risk of Patient Decompensation
[2018-04-13 05:07] LABS: ABSOLUTE EOSINOPHILS # (AUTO) 0.2 10^3/uL (0.0-0.6); ABSOLUTE LYMPHOCYTES (AUTO) 1.3 10^3/uL (0.5-4.7); ABSOLUTE MONOCYTES (AUTO) 0.9 10^3/uL (0.1-1.4); ABSOLUTE NEUT (AUTO) 5.6 10^3/uL (1.7-8.2); BASOPHILS % (AUTO) 0.4 % (0-2); EOSINOPHILS % (AUTO) 1.9 % (0-6); HEMATOCRIT 26.1 % (36.0-47.0); HEMOGLOBIN 8.5 g/dL (12.0-15.5); LYMPHOCYTES % (AUTO) 16.4 % (13-45); MEAN CORPUSCULAR HEMOGLOBIN 24.3 pg (27.0-33.4); MEAN CORPUSCULAR HGB CONC 32.6 g/dL (32.0-36.0); MEAN CORPUSCULAR VOLUME 75 fl (80-97); MONOCYTES % (AUTO) 11.7 % (3-13); PLATELET COUNT 184 10^3/uL (150-450); RED CELL DISTRIBUTION WIDTH 15.9 % (11.5-14.0); SEGMENTED NEUTROPHILS % (AUTO) 69.6 % (42-78); TOTAL CELLS COUNTED % (AUTO) 100 %; WHITE BLOOD COUNT 8.1 10^3/uL (4.0-10.5)
[2018-04-13 05:27] LABS: ANION GAP 6 (5-19); BLOOD UREA NITROGEN 23 mg/dL (7-20); CALCIUM 8.3 mg/dL (8.4-10.2); CARBON DIOXIDE 27 mmol/L (22-30); CHLORIDE 108 mmol/L (98-107); GLUCOSE 98 mg/dL (75-110); POTASSIUM 3.6 mmol/L (3.6-5.0); SODIUM 140.6 mmol/L (137-145)
[2018-04-13 05:41] LABS: CREATINE KINASE MB 9.93 ng/mL (<4.55)
[2018-04-13 06:04] LABS: TROPONIN I 0.148 ng/mL
[2018-04-13] MEDS: IPRATROPIUM/ALBUTEROL 0.5-2.5 MG/3 ML AMPUL NEB SCH ×2 (07:52→20:30)
--- NOTE | 2018-04-13 09:22 | EKG REPORT ---
SEVERITY:- ABNORMAL ECG - SINUS RHYTHM MULTIPLE ATRIAL PREMATURE COMPLEXES LVH BY VOLTAGE : Confirmed by: Chika Brown 13-Apr-2018 09:21:32
[2018-04-13] MEDS ORDERED: (PENDING PHARMACY ID) (Calcium Carbonate/Vitamin D3 [Calcium 600 + Vit D 400 Tablet] 1 TAB PO SCH (10:00)
[2018-04-13] MEDS ORDERED: (PENDING PHARMACY ID) (Cholecalciferol (Vitamin D3) [Vitamin D3] 5,000 UNIT) PO SCH (10:00)
[2018-04-13] MEDS: LOSARTAN POTASSIUM 50 MG TABLET PO SCH (10:14)
[2018-04-13] MEDS: AMLODIPINE BESYLATE 5 MG TABLET PO SCH (10:15)
[2018-04-13] MEDS: DOCUSATE SODIUM 100 MG CAPSULE PO SCH (10:15)
[2018-04-13] MEDS: ASPIRIN 325 MG TABLET, ENT COATED PO SCH (10:15)
[2018-04-13] MEDS: ESCITALOPRAM OXALATE 10 MG TABLET PO SCH (10:19)
[2018-04-13] MEDS: RISPERIDONE 0.25 MG TABLET PO SCH ×2 (13:35→21:17)
[2018-04-13] MEDS ORDERED: (PENDING PHARMACY ID) (Risperidone [Risperdal] 0.5 MG) PO SCH (14:00)
--- NOTE | 2018-04-13 14:23 | PDOC PROGRESS REPORT ---
Subjective Progress Note for:: 04/13/18 Subjective:: Mrs. Ordonez is an 87 years old female patient with past medical history of hypertension, coronary disease status post stent placement, history of CVA, dementia and diabetes mellitus, brought from [facility] in [facility], with chief complaint of shortness of breath. At ER patient found to be tachycardic tachypneic and hypoxemic with O2 saturation of 84% on room air. Her initial blood work showed troponin of 0.15 and her chest x-ray reported right upper lobe pneumonia. Reason For Visit: PNEUMONIA,NSTEMI Physical Exam Vital Signs: Temp Pulse Resp BP Pulse Ox 98.2 F 77 16 125/52 L 94 04/13/18 11:58 04/13/18 11:58 04/13/18 11:58 04/13/18 11:58 04/13/18 11:58 Intake & Output 04/12/18 04/13/18 04/14/18 06:59 06:59 06:59 Intake Total 1880 Output Total 200 Balance 1680 Weight 79.1 kg General appearance: PRESENT: no acute distress Head exam: PRESENT: atraumatic Eye exam: PRESENT: conjunctiva pink Neck exam: ABSENT: carotid bruit, JVD, lymphadenopathy, thyromegaly Cardiovascular exam: PRESENT: RRR. ABSENT: diastolic murmur, rubs, systolic murmur GI/Abdominal exam: PRESENT: normal bowel sounds, soft. ABSENT: distended, guarding, mass, organolmegaly, rebound, tenderness Neurological exam: PRESENT: alert, awake Results Laboratory Results: 04/13/18 04:29 04/13/18 04:29 04/12/18 04/12/18 04/12/18 16:29 16:29 16:29 WBC 12.4 H RBC 4.34 Hgb 10.3 L Hct 32.5 L MCV 75 L MCH 23.7 L MCHC 31.7 L RDW 15.9 H Plt Count 228 Seg Neutrophils % 78.4 H Lymphocytes % 9.4 L Monocytes % 12.0 Eosinophils % 0.0 Basophils % 0.2 Absolute Neutrophils 9.7 H Absolute Lymphocytes 1.2 Absolute Monocytes 1.5 H Absolute Eosinophils 0.0 Absolute Basophils 0.0 Retic Count (auto) 1.52 Absolute Retic 0.066 Sodium 140.8 Potassium 4.4 Chloride 103 Carbon Dioxide 28 Anion Gap 10 BUN 26 H Creatinine 1.21 Est GFR ( Amer) 51 L Est GFR (Non-Af Amer) 42 L Glucose 178 H Lactic Acid Calcium 9.4 Iron TIBC % Saturation Ferritin Total Bilirubin 0.6 AST 25 ALT 12 Alkaline Phosphatase 103 Total Protein 6.7 Albumin 3.6 Vitamin B12 Folate Urine Color Urine Appearance Urine pH Ur Specific [place] Urine Protein Urine Glucose (UA) Urine Ketones Urine Blood Urine Nitrite Ur Leukocyte Esterase Urine WBC (Auto) Urine RBC (Auto) 04/12/18 04/12/18 04/12/18 16:34 17:00 17:30 WBC RBC Hgb Hct MCV MCH MCHC RDW Plt Count Seg Neutrophils % Lymphocytes % Monocytes % Eosinophils % Basophils % Absolute Neutrophils Absolute Lymphocytes Absolute Monocytes Absolute Eosinophils Absolute Basophils Retic Count (auto) Absolute Retic Sodium Potassium Chloride Carbon Dioxide Anion Gap BUN Creatinine Est GFR ( Amer) Est GFR (Non-Af Amer) Glucose Lactic Acid 2.0 Calcium Iron 16.3 L TIBC 321 % Saturation 5 Ferritin 32.20 Total Bilirubin AST ALT Alkaline Phosphatase Total Protein Albumin Vitamin B12 459.0 Folate 12.80 Urine Color YELLOW Urine Appearance CLOUDY Urine pH 5.0 Ur Specific [place] 1.017 Urine Protein NEGATIVE Urine Glucose (UA) NEGATIVE Urine Ketones TRACE H Urine Blood NEGATIVE Urine Nitrite NEGATIVE Ur Leukocyte Esterase NEGATIVE Urine WBC (Auto) 4 Urine RBC (Auto) 3 04/13/18 04/13/18 04:29 04:29 WBC 8.1 RBC 3.50 L Hgb 8.5 L Hct 26.1 L MCV 75 L MCH 24.3 L MCHC 32.6 RDW 15.9 H Plt Count 184 Seg Neutrophils % 69.6 Lymphocytes % 16.4 Monocytes % 11.7 Eosinophils % 1.9 Basophils % 0.4 Absolute Neutrophils 5.6 Absolute Lymphocytes 1.3 Absolute Monocytes 0.9 Absolute Eosinophils 0.2 Absolute Basophils 0.0 Retic Count (auto) Absolute Retic Sodium 140.6 Potassium 3.6 Chloride 108 H Carbon Dioxide 27 Anion Gap 6 BUN 23 H Creatinine 0.96 Est GFR ( Amer) > 60 Est GFR (Non-Af Amer) 55 L Glucose 98 Lactic Acid Calcium 8.3 L Iron TIBC % Saturation Ferritin Total Bilirubin AST ALT Alkaline Phosphatase Total Protein Albumin Vitamin B12 Folate Urine Color Urine Appearance Urine pH Ur Specific [place] Urine Protein Urine Glucose (UA) Urine Ketones Urine Blood Urine Nitrite Ur Leukocyte Esterase Urine WBC (Auto) Urine RBC (Auto) 04/12/18 04/12/18 04/12/18 16:29 16:29 19:40 Creatine Kinase 234 H CK-MB (CK-2) 8.65 H 12.50 H Troponin I 0.155 0.208 NT-Pro-B Natriuret Pep 1370 H 04/12/18 04/13/18 19:40 04:29 Creatine Kinase 360 H CK-MB (CK-2) 9.93 H Troponin I 0.148 NT-Pro-B Natriuret Pep Impressions: Chest X-Ray 04/12/18 18:47 IMPRESSION: Cannot exclude a minimal right upper lobe pneumonia. Assessment & Plan - Diagnosis (1) Acute hypoxemic respiratory failure Is this a current diagnosis for this admission?: Yes Plan: Supplemental oxygen and as needed bronchodilator. (2) Right upper lobe pneumonia Is this a current diagnosis for this admission?: Yes Plan: Continue Levaquin (3) Non-STEMI (non-ST elevated myocardial infarction) Is this a current diagnosis for this admission?: Yes Plan: Continue aspirin and Plavix. Dr. Bateman consulted for his input. (4) Coronary artery disease status post sten Is this a current diagnosis for this admission?: Yes Plan: Continue home cardiac medications. (5) Diabetes mellitus type 2 in obese Is this a current diagnosis for this admission?: Yes Plan: Continue home medication and sliding scale. (6) Hypothyroidism Is this a current diagnosis for this admission?: Yes Plan: Continue Synthroid
[2018-04-13] MEDS: CALCIUM CARBONATE 250 MG/VITAMIN D3 125 UNIT TABLET PO SCH (17:10)
[2018-04-13] MEDS: ACETAMINOPHEN 325 MG TABLET PO PRN (17:13)
--- NOTE | 2018-04-13 20:11 | RADIOLOGY REPORT (SQ) ---
CT HEAD WITHOUT IV CONTRAST HISTORY: Altered mental status. COMPARISON: 02/11/2018 TECHNIQUE: CT scan of the brain without IV contrast. This exam was performed according to our departmental dose-optimization program, which includes automated exposure control, adjustment of the mA and/or kV according to patient size and/or use of iterative reconstruction technique. FINDINGS: There are diffuse involutional changes. No evidence of acute infarction, intracranial hemorrhage, extra-axial fluid collection, or midline shift. There is opacification of the left ethmoid air cells. No air-fluid levels are seen. IMPRESSION: No acute intracranial findings.
--- NOTE | 2018-04-13 20:29 | PDOC CONSULTATION ---
Consultation-Blank Consultation: CARDIOLOGY CONSULTATION by Dr. Venice Bateman on 04/13/2018. Patient seen at 5 PM on 04/13/2018. Note 60 minutes spent on this patient with more than 50% time spent in direct patient care. Reason For Consultation: Patient admitted with pneumonia with elevated troponin I and CPK-MB consistent with a diagnosis of non-ST elevation WA. Note that the patient is confused, and unable to give a history. History obtained from the chart. HISTORY of PRESENT ILLNESS: 87-year-old female with a history of significant dementia hypertension coronary artery disease past history of CVA, diabetes mellitus, and hypothyroidism who was transferred to the emergency room for chest pain and shortness of breath. It is not clear as to what the quality of the chest pain is, and patient unable to describe. The patient in the emergency room had a workup which showed a chest x-ray consistent with pneumonia, and although no acute EKG changes the patient's troponin I is elevated. He was also found to be in acute respiratory failure with hypoxemia. At present the patient is confused and answers no to any questions as asked, and states no to chest pain presents, or shortness of breath. She does not appear to be in any acute distress. Past MEDICAL HISTORY: She Has History of Coronary Artery Disease, and Details of This Is Not Very Clear. She Also Supposedly Has Peripheral Vascular Disease, Hypertension, Diabetes Mellitus, Hypothyroidism, and GERD. She Also Has Significant Dementia. It Is Believed That the Patient Passed Cardiac Catheterization and Stent Placement. No Records of This Is Available. PAST SURGICAL HISTORY: His Cardiac Catheterization and Stent Placement. SOCIAL HISTORY: Patient Is a Former Smoker As per Records. She Lives in a Alf. DISPOSITION: The patient is a full code. She is unable to name a surrogate healthcare decision maker. REVIEW SYSTEMS: Not obtainable due to patient's mental status. The patient is very confused due to dementia. MEDICATIONS: Reviewed the medication administration chart. On examination the patient is well-built. She is in no acute distress although she is confused. 04/13/18 16:27 Temperature 98.0 F Temperature Oral Source Pulse Rate 77 Respiratory 16 Rate Blood Pressure 115/50 L Blood Pressure 71 Mean BP Location Right Arm BP Position Sitting O2 Sat by Pulse 91 L Oximetry Oxygen Flow 1.50 Rate Oxygen Delivery Nasal Cannula Method HEAD: Is atraumatic normocephalic. EYES: Pupils are equal round regular reactive to light and accommodation. There is mild conjunctival pallor. There is no scleral icterus. Ears: Tympanic membranes are intact. External auditory canals are clear. Nose: Mucous membranes of the nose are not inflamed. There is no deviated nasal septum. There is no nasal polyps. MOUTH: Mucous membranes of mouth, and tongue are moist. There is no bleeding from the gums. THROAT: There is no redness of the oropharynx. There is no exudates. SKIN: There is no petechia or ecchymosis. There is no skin rashes or skin lesions. NECK: Supple. There is no JVD. Carotids are equal there is no bruits. There is no lymphadenopathy. There is no goiter. There is no accessory muscle respiration use. There is no goiter. Trachea central. LUNGS: There is a dry crackles in the right upper lobe. The rest of the lungs are clear. There is no rhonchi or wheezing. There is no chest wall tenderness. HEART: S1-S2 is heard. There is no S3 gallop there is no S4 gallop. There is systolic murmur in the aortic area without evidence of aortic stenosis. There is mild mitral regurgitation murmur with the murmur from the apex radiating towards the axilla. There is no rub. ABDOMEN: Is soft. There is no hepatosplenomegaly. Bowel sounds are normal. There is no guarding rebound or rigidity. EXTREMITIES: Femorals are diminished there is no femoral bruits leg pulses are diminished. There is no pedal edema. There is no DVT or cellulitis. There is no calf tenderness. PUBLIC INFORMATION SPECIALIST: The patient is confused she is disoriented x3. There is no focal deficits. PSYCHIATRIC: The patient is not agitated. Full psychiatric examination could not be obtained due to the patient's dementia. 04/12/18 04/12/18 04/12/18 16:29 16:29 16:29 WBC 12.4 H RBC 4.34 Hgb 10.3 L Hct 32.5 L MCV 75 L MCH 23.7 L MCHC 31.7 L RDW 15.9 H Plt Count 228 Seg Neutrophils % 78.4 H Lymphocytes % 9.4 L Monocytes % 12.0 Eosinophils % 0.0 Basophils % 0.2 Absolute Neutrophils 9.7 H Absolute Lymphocytes 1.2 Absolute Monocytes 1.5 H Absolute Eosinophils 0.0 Absolute Basophils 0.0 Retic Count (auto) Absolute Retic Sodium 140.8 Potassium 4.4 Chloride 103 Carbon Dioxide 28 Anion Gap 10 BUN 26 H Creatinine 1.21 Est GFR (Non-Af Amer) 42 L Glucose 178 H POC Glucose Lactic Acid Calcium 9.4 Iron TIBC % Saturation Ferritin Total Bilirubin 0.6 Direct Bilirubin 0.4 Neonat Total Bilirubin Not Reportable Neonat Direct Bilirubin Not Reportable Neonat Indirect Bili Not Reportable AST 25 ALT 12 Alkaline Phosphatase 103 Creatine Kinase 234 H CK-MB (CK-2) 8.65 H Troponin I 0.155 NT-Pro-B Natriuret Pep Total Protein 6.7 Albumin 3.6 Vitamin B12 Folate 04/12/18 04/12/18 04/12/18 16:29 16:33 16:34 WBC RBC Hgb Hct MCV MCH MCHC RDW Plt Count Seg Neutrophils % Lymphocytes % Monocytes % Eosinophils % Basophils % Absolute Neutrophils Absolute Lymphocytes Absolute Monocytes Absolute Eosinophils Absolute Basophils Retic Count (auto) 1.52 Absolute Retic 0.066 Sodium Potassium Chloride Carbon Dioxide Anion Gap BUN Creatinine Est GFR (Non-Af Amer) Glucose POC Glucose 179 H Lactic Acid 2.0 Calcium Iron TIBC % Saturation Ferritin Total Bilirubin Direct Bilirubin Neonat Total Bilirubin Neonat Direct Bilirubin Neonat Indirect Bili AST ALT Alkaline Phosphatase Creatine Kinase CK-MB (CK-2) Troponin I NT-Pro-B Natriuret Pep Total Protein Albumin Vitamin B12 Folate 04/12/18 04/12/18 04/12/18 17:30 19:40 19:40 WBC RBC Hgb Hct MCV MCH MCHC RDW Plt Count Seg Neutrophils % Lymphocytes % Monocytes % Eosinophils % Basophils % Absolute Neutrophils Absolute Lymphocytes Absolute Monocytes Absolute Eosinophils Absolute Basophils Retic Count (auto) Absolute Retic Sodium Potassium Chloride Carbon Dioxide Anion Gap BUN Creatinine Est GFR (Non-Af Amer) Glucose POC Glucose Lactic Acid Calcium Iron 16.3 L TIBC 321 % Saturation 5 Ferritin 32.20 Total Bilirubin Direct Bilirubin Neonat Total Bilirubin Neonat Direct Bilirubin Neonat Indirect Bili AST ALT Alkaline Phosphatase Creatine Kinase 360 H CK-MB (CK-2) 12.50 H Troponin I 0.208 NT-Pro-B Natriuret Pep 1370 H Total Protein Albumin Vitamin B12 459.0 Folate 12.80 04/13/18 04/13/18 04/13/18 04:29 04:29 04:29 WBC 8.1 RBC 3.50 L Hgb 8.5 L Hct 26.1 L MCV 75 L MCH 24.3 L MCHC 32.6 RDW 15.9 H Plt Count 184 Seg Neutrophils % 69.6 Lymphocytes % 16.4 Monocytes % 11.7 Eosinophils % 1.9 Basophils % 0.4 Absolute Neutrophils 5.6 Absolute Lymphocytes 1.3 Absolute Monocytes 0.9 Absolute Eosinophils 0.2 Absolute Basophils 0.0 Retic Count (auto) Absolute Retic Sodium 140.6 Potassium 3.6 Chloride 108 H Carbon Dioxide 27 Anion Gap 6 BUN 23 H Creatinine 0.96 Est GFR (Non-Af Amer) 55 L Glucose 98 POC Glucose Lactic Acid Calcium 8.3 L Iron TIBC % Saturation Ferritin Total Bilirubin Direct Bilirubin Neonat Total Bilirubin Neonat Direct Bilirubin Neonat Indirect Bili AST ALT Alkaline Phosphatase Creatine Kinase CK-MB (CK-2) 9.93 H Troponin I 0.148 NT-Pro-B Natriuret Pep Total Protein Albumin Vitamin B12 Folate 04/13/18 12:00 WBC RBC Hgb Hct MCV MCH MCHC RDW Plt Count Seg Neutrophils % Lymphocytes % Monocytes % Eosinophils % Basophils % Absolute Neutrophils Absolute Lymphocytes Absolute Monocytes Absolute Eosinophils Absolute Basophils Retic Count (auto) Absolute Retic Sodium Potassium Chloride Carbon Dioxide Anion Gap BUN Creatinine Est GFR (Non-Af Amer) Glucose POC Glucose 142 H Lactic Acid Calcium Iron TIBC % Saturation Ferritin Total Bilirubin Direct Bilirubin Neonat Total Bilirubin Neonat Direct Bilirubin Neonat Indirect Bili AST ALT Alkaline Phosphatase Creatine Kinase CK-MB (CK-2) Troponin I NT-Pro-B Natriuret Pep Total Protein Albumin Vitamin B12 Folate Patient's chest x-ray shows right upper lobe pneumonia. There is no evidence of congestive heart failure. Patient's EKG shows sinus rhythm with APCs. No acute changes. IMPRESSION/RECOMMENDATION: 1. 1. Acute hypoxic respiratory failure on admission. Now seems to have resolved with the nasal oxygen, with a sats now being 91%. 2. Elevated troponin I: This is most likely secondary to supply demand mismatch. Although the patient is said to have been admitted with chest pain or shortness of breath, it is not clear what the chest pain is anginal or nonanginal, and the patient's mental status she cannot state exactly what her symptoms are. There is a history of coronary artery disease in the patient with stent placement. But with the lack of acute EKG changes I would favor the diagnosis of type II supply demand mismatch myocardial infarction rather than a non-ST elevation WA. But to be sure since the patient cannot give a good history I would continue the patient on aspirin, amlodipine, and add topical nitrate. Note that the troponin I has trended down. Although the echocardiogram is not a very good study there is probably no wall motion abnormality which would favor the argument that this is not a diagnosis of a non-ST elevation WA, but is supple very demand mismatch type II myocardial infarction.. In view of the patient's age, and significant degree of dementia, and lack of symptoms in the patient i, she is not a candidate for aggressive treatment such as cardiac catheterization. Also would treat the patient medically, and would not subject the patient to a stress test, since the patient with her mental status will not be compliant with getting the test done. 3. Right upper lobe pneumonia: Continue antibiotics. 4. Hypertension: Blood pressure well controlled. 5. Diabetes Mellitus type II: Monitor blood sugars. Continue antidiabetic treatment 6. History of peripheral vascular disease. At present asymptomatic since the patient is bedridden. 7. Iron deficiency anemia: Would recommend starting the patient on ferrous sulfate. Also will get Hemoccult testing of stools. 8. Hypothyroidism: Replace the patient with thyroid supplement. 9. Most likely has chronic kidney disease stage III. But cannot be sure about this. Dementia which seems to be severe. 10. Dementia, which seems to be severe. Medications reviewed. Medications adjusted. Management plan discussed with attending physician on the case. Medical decision making is of high complexity at present. Note that the patient at present is a full code. She is not able to give who her surrogate healthcare decision maker . 60 minutes spent in this patient with more than 50% of time spent on direct patient care.
[2018-04-13] MEDS: TRAZODONE HCL 50 MG TABLET PO SCH (21:16)
--- NOTE | 2018-04-13 21:35 | XCELERA REPORT ---
[address] [address] Transthoracic Echocardiogram Report Name: YANDEL SUN Age: 87 yrs Gender: Female : 1930 Patient Status: Inpatient Patient Location: [address] [place] [address] Study Date: 04/13/2018 12:28 PM Procedure: A two-dimensional transthoracic echocardiogram with color flow and Doppler was performed. The study was technically difficult with many images being suboptimal in quality. Poor endocardial visualisation. Reason For Study: Mumur/non stemi History: Mumur/non stemi. Ordering Physician: VENICE ACEVEDO Performed By: Maya Araujo Interpretation Summary The left ventricle is normal in size. There is normal left ventricular wall thickness. LV EF is > than 60% Left ventricular systolic function is low normal. Doppler measurements suggest impaired left ventricular relaxation, which is associated with grade I/IV or mild diastolic dysfunction Probably no regional wall motion abnormality The right ventricle is grossly normal size. The right atrium is normal. The left atrial size is normal. There is no evidence of mitral valve prolapse. There is no vegetation seen on the mitral valve. There is no mitral valve stenosis. There is a mild amount of mitral regurgitation No aortic regurgitation is present. There is no tricuspid stenosis. There is a trace to mild amount of tricuspid regurgitation Right ventricular systolic pressure is at the upper limits of normal RVSP is 31 mm of Hg , with RA mean of 10. There is no pericardial effusion. MMode/2D Measurements & Calculations RVDd: 2.0 cm LVIDd: 4.8 cm FS: 25.5 % Ao root diam: 2.6 cm IVSd: 0.84 cm LVIDs: 3.6 cm EDV(Teich): 108.9 ml Ao root area: 5.3 cm2 LVPWd: 1.1 cm ESV(Teich): 54.3 ml EF(Teich): 50.1 % LVOT diam: 0.78 cm LVOT area: 0.47 cm2 Doppler Measurements & Calculations MV E max timur: MV dec slope: Ao V2 max: LV V1 max P.2 cm/sec 175.7 cm/sec 6.1 mmHg MV A max timur: 264.6 cm/sec2 Ao max PG: LV V1 max: 135.9 cm/sec MV dec time: 0.33 sec12.4 mmHg 123.9 cm/sec MV E/A: 0.63 LILLIANA(V,D): 0.33 cm2 PA V2 max: TR max timur: 139.0 cm/sec 231.6 cm/sec PA max P.7 mmHg TR max P.5 mmHg Left Ventricle The left ventricle is normal in size. There is normal left ventricular wall thickness. LV EF is > than 60%. Left ventricular systolic function is low normal. Doppler measurements suggest impaired left ventricular relaxation, which is associated with grade I/IV or mild diastolic dysfunction. Probably no regional wall motion abnormality. There is no thrombus. Right Ventricle The right ventricle is grossly normal size. The right ventricle is not well visualized secondary to technical limitations. Atria The right atrium is normal. The left atrial size is normal. Mitral Valve There is no evidence of mitral valve prolapse. There is no vegetation seen on the mitral valve. There is no mitral valve stenosis. There is a mild amount of mitral regurgitation. Aortic Valve There is no aortic valve stenosis. There is no LVOT obstruction. No aortic regurgitation is present. Tricuspid Valve There is no tricuspid stenosis. There is a trace to mild amount of tricuspid regurgitation. Right ventricular systolic pressure is at the upper limits of normal. RVSP is 31 mm of Hg , with RA mean of 10. Pulmonic Valve There is no pulmonic valvular stenosis. There is no pulmonic valvular regurgitation. Great Vessels The aortic root is not well visualized. Effusions There is no pericardial effusion. : VENICE ACVEEDO > Venice Acevedo
[2018-04-13] MEDS ORDERED: (PENDING PHARMACY ID) (Trazodone Hcl [Desyrel] 150 MG) PO SCH (22:00)
[2018-04-14] MEDS: NORMAL SALINE 1000 ML 1,000 ML IV PRN (01:26)
[2018-04-14] MEDS: RISPERIDONE 0.25 MG TABLET PO SCH ×3 (05:41→21:58)
[2018-04-14] MEDS: IPRATROPIUM/ALBUTEROL 0.5-2.5 MG/3 ML AMPUL NEB SCH ×2 (09:14→20:26)
[2018-04-14 09:28] LABS: ABSOLUTE EOSINOPHILS # (AUTO) 0.1 10^3/uL (0.0-0.6); ABSOLUTE LYMPHOCYTES (AUTO) 0.8 10^3/uL (0.5-4.7); ABSOLUTE MONOCYTES (AUTO) 0.7 10^3/uL (0.1-1.4); BASOPHILS % (AUTO) 0.6 % (0-2); EOSINOPHILS % (AUTO) 1.9 % (0-6); HEMATOCRIT 26.7 % (36.0-47.0); HEMOGLOBIN 8.6 g/dL (12.0-15.5); LYMPHOCYTES % (AUTO) 10.2 % (13-45); MEAN CORPUSCULAR HEMOGLOBIN 24.2 pg (27.0-33.4); MEAN CORPUSCULAR HGB CONC 32.3 g/dL (32.0-36.0); MEAN CORPUSCULAR VOLUME 75 fl (80-97); MONOCYTES % (AUTO) 9.3 % (3-13); PLATELET COUNT 186 10^3/uL (150-450); RED BLOOD COUNT 3.56 10^6/uL (3.72-5.28); TOTAL CELLS COUNTED % (AUTO) 100 %; WHITE BLOOD COUNT 7.7 10^3/uL (4.0-10.5)
[2018-04-14] MEDS: CHOLECALCIFEROL (D3) 1,000 UNIT TABLET PO SCH (09:54)
[2018-04-14 09:55] LABS: BLOOD UREA NITROGEN 19 mg/dL (7-20); GLUCOSE 109 mg/dL (75-110); POTASSIUM 3.9 mmol/L (3.6-5.0)
[2018-04-14] MEDS: AMLODIPINE BESYLATE 5 MG TABLET PO SCH (09:55)
[2018-04-14] MEDS: ASPIRIN 325 MG TABLET, ENT COATED PO SCH (09:55)
[2018-04-14] MEDS: CALCIUM CARBONATE 250 MG/VITAMIN D3 125 UNIT TABLET PO SCH ×2 (09:55→17:39)
[2018-04-14] MEDS: LOSARTAN POTASSIUM 50 MG TABLET PO SCH (09:55)
[2018-04-14] MEDS: ESCITALOPRAM OXALATE 10 MG TABLET PO SCH (09:55)
[2018-04-14] MEDS: DOCUSATE SODIUM 100 MG CAPSULE PO SCH (09:55)
[2018-04-14 10:01] LABS: CARBON DIOXIDE 28 mmol/L (22-30); CHLORIDE 108 mmol/L (98-107)
[2018-04-14 10:08] LABS: ANION GAP 4 (5-19)
--- NOTE | 2018-04-14 15:29 | PDOC PROGRESS REPORT ---
Subjective Progress Note for:: 04/14/18 Subjective:: saw patient in bed today. she's very slow and lethargic appearing. can talk but not really oriented to much more than her name and . no family at bedside to discuss her management. Reason For Visit: PNEUMONIA,NSTEMI Physical Exam Vital Signs: Temp Pulse Resp BP Pulse Ox 99.4 F 85 16 141/54 H 94 04/14/18 12:03 04/14/18 12:03 04/14/18 12:03 04/14/18 12:03 04/14/18 12:03 Intake & Output 04/13/18 04/14/18 04/15/18 06:59 06:59 06:59 Intake Total 1880 455 239 Output Total 200 825 200 Balance 1680 -370 39 Weight 174 lb 6.17 oz 179 lb 0.246 oz General appearance: PRESENT: no acute distress, other - appears lethargic and slow mentation Head exam: PRESENT: atraumatic, normocephalic Eye exam: PRESENT: EOMI. ABSENT: scleral icterus Ear exam: PRESENT: normal external ear exam Mouth exam: PRESENT: tongue midline Neck exam: ABSENT: tracheal deviation Respiratory exam: PRESENT: clear to auscultation nohemi, symmetrical Cardiovascular exam: PRESENT: +S1, +S2 Pulses: PRESENT: +2 pedal pulses bilateral GI/Abdominal exam: PRESENT: normal bowel sounds, soft. ABSENT: tenderness Extremities exam: ABSENT: pedal edema Neurological exam: PRESENT: alert, awake, oriented to person, oriented to place, oriented to time, oriented to situation. ABSENT: CN II-XII grossly intact Skin exam: PRESENT: dry, warm Results Laboratory Results: 04/14/18 09:17 04/14/18 09:17 04/14/18 04/14/18 09:17 09:17 WBC 7.7 RBC 3.56 L Hgb 8.6 L Hct 26.7 L MCV 75 L MCH 24.2 L MCHC 32.3 RDW 16.0 H Plt Count 186 Seg Neutrophils % 78.0 Lymphocytes % 10.2 L Monocytes % 9.3 Eosinophils % 1.9 Basophils % 0.6 Absolute Neutrophils 6.0 Absolute Lymphocytes 0.8 Absolute Monocytes 0.7 Absolute Eosinophils 0.1 Absolute Basophils 0.0 Sodium 140.0 Potassium 3.9 Chloride 108 H Carbon Dioxide 28 Anion Gap 4 L BUN 19 Creatinine 0.77 Est GFR ( Amer) > 60 Est GFR (Non-Af Amer) > 60 Glucose 109 Calcium 8.0 L Magnesium 2.0 04/12/18 04/12/18 04/12/18 16:29 16:29 19:40 Creatine Kinase 234 H CK-MB (CK-2) 8.65 H 12.50 H Troponin I 0.155 0.208 NT-Pro-B Natriuret Pep 1370 H 04/12/18 04/13/18 04/14/18 19:40 04:29 09:17 Creatine Kinase 360 H CK-MB (CK-2) 9.93 H Troponin I 0.148 0.036 NT-Pro-B Natriuret Pep 04/14/18 11:58 Creatine Kinase CK-MB (CK-2) Troponin I 0.027 NT-Pro-B Natriuret Pep Impressions: Chest X-Ray 04/12/18 18:47 IMPRESSION: Cannot exclude a minimal right upper lobe pneumonia. Head CT 04/13/18 00:00 IMPRESSION: No acute intracranial findings. Assessment & Plan - Diagnosis (1) Acute hypoxemic respiratory failure Is this a current diagnosis for this admission?: Yes (2) Right upper lobe pneumonia Is this a current diagnosis for this admission?: Yes (3) Coronary artery disease status post sten Is this a current diagnosis for this admission?: Yes (4) Diabetes mellitus type 2 in obese Is this a current diagnosis for this admission?: Yes (5) Non-STEMI (non-ST elevated myocardial infarction) Is this a current diagnosis for this admission?: Yes (6) Dementia Is this a current diagnosis for this admission?: Yes (7) Hypothyroidism Is this a current diagnosis for this admission?: Yes - Plan Summary Plan Summary: Acute respiratory failure with hypoxia- remains on supplemental O2- will ask RT to wean as tolerated to back to baseline RUL PNA- on levaquin. CXR showed ?RUL pneumonia. NSTEMI- troponin trended down. Cardiology is consulted. likely this demand ischemia. on ASA and Plavix. will await cardiology recommendations HTN- c/w losartan and norvasc for now. BP appropriate this morning Dementia- unable to tell me any history. no family at bedside. difficult to assess her baseline mentation from my first encounter. appears weak- will get PT to assess her. she lives at assisted living from what i understand
--- NOTE | 2018-04-14 17:03 | Progress Note ---
Provider Note Provider Note: CARDIOLOGY PROGRESS NOTE by Dr. Venice Bateman on 04/14/2018. OBJECTIVE: The patient appears to be drowsy and lethargic, but appears to be in no acute distress. She is unable to answer any questions. There is no arrhythmias seen on the monitor. She does move all 4 extremities. PHYSICAL EXAMINATION: The patient is mildly obese. She is in no acute distress. She is well-groomed. Selected Entries 04/14/18 12:03 Temperature 99.4 F Temperature Axillary Source Pulse Rate 85 Respiratory 16 Rate Blood Pressure 141/54 H Blood Pressure 83 Mean BP Location Right Arm BP Position Supine O2 Sat by Pulse 94 Oximetry Oxygen Flow 2.00 Rate Oxygen Delivery Nasal Cannula Method HEAD: Is atraumatic normocephalic. EYES: Pupils are equal round regular reactive to light and accommodation. There is mild conjunctival pallor. There is no scleral icterus. Ears: Tympanic membranes are intact. External auditory canals are clear. Nose: Mucous membranes of the nose are not inflamed. There is no deviated nasal septum. There is no nasal polyps. MOUTH: Mucous membranes of mouth, and tongue are moist. There is no bleeding from the gums. THROAT: There is no redness of the oropharynx. There is no exudates. SKIN: There is no petechia or ecchymosis. There is no skin rashes or skin lesions. NECK: Supple. There is no JVD. Carotids are equal there is no bruits. There is no lymphadenopathy. There is no goiter. There is no accessory muscle respiration use. There is no goiter. Trachea central. LUNGS: There is a dry crackles in the right upper lobe. The rest of the lungs are clear. There is no rhonchi or wheezing. There is no chest wall tenderness. HEART: S1-S2 is heard. There is no S3 gallop there is no S4 gallop. There is systolic murmur in the aortic area without evidence of aortic stenosis. There is mild mitral regurgitation murmur with the murmur from the apex radiating towards the axilla. There is no rub. ABDOMEN: Is soft. There is no hepatosplenomegaly. Bowel sounds are normal. There is no guarding rebound or rigidity. EXTREMITIES: Femorals are diminished there is no femoral bruits leg pulses are diminished. There is no pedal edema. There is no DVT or cellulitis. There is no calf tenderness. HEADHUNTER: The patient is confused she is disoriented x3. There is no focal deficits. PSYCHIATRIC: The patient is not agitated. Full psychiatric examination could not be obtained due to the patient's dementia. 02/11/18 04/12/18 04/12/18 16:20 16:29 19:40 WBC RBC There is Hgb Hct MCV MCH MCHC RDW Plt Count Seg Neutrophils % Lymphocytes % Monocytes % Eosinophils % Basophils % Absolute Neutrophils Absolute Lymphocytes Absolute Monocytes Absolute Eosinophils Absolute Basophils Sodium Potassium Chloride Carbon Dioxide Anion Gap BUN Creatinine Est GFR (Non-Af Amer) Glucose Calcium Magnesium CK-MB (CK-2) 5.31 H 8.65 H 12.50 H Troponin I 0.013 0.155 0.208 04/13/18 04/14/18 04/14/18 04:29 09:17 09:17 WBC 7.7 RBC 3.56 L Hgb 8.6 L Hct 26.7 L MCV 75 L MCH 24.2 L MCHC 32.3 RDW 16.0 H Plt Count 186 Seg Neutrophils % 78.0 Lymphocytes % 10.2 L Monocytes % 9.3 Eosinophils % 1.9 Basophils % 0.6 Absolute Neutrophils 6.0 Absolute Lymphocytes 0.8 Absolute Monocytes 0.7 Absolute Eosinophils 0.1 Absolute Basophils 0.0 Sodium 140.0 Potassium 3.9 Chloride 108 H Carbon Dioxide 28 Anion Gap 4 L BUN 19 Creatinine 0.77 Est GFR (Non-Af Amer) > 60 Glucose 109 Calcium 8.0 L Magnesium 2.0 CK-MB (CK-2) 9.93 H Troponin I 0.148 04/14/18 04/14/18 04/14/18 09:17 11:58 15:05 WBC RBC Hgb Hct MCV MCH MCHC RDW Plt Count Seg Neutrophils % Lymphocytes % Monocytes % Eosinophils % Basophils % Absolute Neutrophils Absolute Lymphocytes Absolute Monocytes Absolute Eosinophils Absolute Basophils Sodium Potassium Chloride Carbon Dioxide Anion Gap BUN Creatinine Est GFR (Non-Af Amer) Glucose Calcium Magnesium CK-MB (CK-2) Troponin I 0.036 0.027 0.026 IMPRESSION/RECOMMENDATION: 1. 1. Acute hypoxic respiratory failure on admission. Now seems to have resolved with the nasal oxygen, with a sats now being 94%. 2. Elevated troponin I: This is most likely secondary to supply demand mismatch. Although the patient is said to have been admitted with chest pain or shortness of breath, it is not clear what the chest pain is anginal or nonanginal, and the patient's mental status she cannot state exactly what her symptoms are. There is a history of coronary artery disease in the patient with stent placement. But with the lack of acute EKG changes I would favor the diagnosis of type II supply demand mismatch myocardial infarction rather than a non-ST elevation MD. But to be sure since the patient cannot give a good history I would continue the patient on aspirin, amlodipine, and add topical nitrate. Note that the troponin I has trended down. Although the echocardiogram is not a very good study there is probably no wall motion abnormality which would favor the argument that this is not a diagnosis of a non-ST elevation MD, but is supple very demand mismatch type II myocardial infarction.. In view of the patient's age, and significant degree of dementia, and lack of symptoms in the patient i, she is not a candidate for aggressive treatment such as cardiac catheterization. Also would treat the patient medically, and would not subject the patient to a stress test, since the patient with her mental status will not be compliant with getting the test done. 3. Right upper lobe pneumonia: Continue antibiotics. 4. Hypertension: Blood pressure well controlled. 5. Diabetes Mellitus type II: Monitor blood sugars. Continue antidiabetic treatment 6. History of peripheral vascular disease. At present asymptomatic since the patient is bedridden. 7. Iron deficiency anemia: We will start the patient on ferrous sulfate. Also will get Hemoccult testing of stools. 8. Dementia which seems to be severe. Medications reviewed. Medications adjusted. Management plan discussed with attending physician on the case. Medical decision making is of moderate complexity at present. Note that the patient at present is a full code. She is not able to give who her surrogate healthcare decision maker S. 40 minutes spent on this patient more than 50% of time spent in direct patient care. Will follow with you. We will try to get up with the family to discuss further.
[2018-04-14] MEDS: LEVOFLOXACIN 750 MG/D5W RTU 750 MG/150 ML RTUPB IV SCH (17:39)
[2018-04-14] MEDS: TRAZODONE HCL 50 MG TABLET PO SCH (21:59)
[2018-04-15] MEDS: ACETAMINOPHEN 325 MG TABLET PO PRN (02:50)
[2018-04-15] MEDS: RISPERIDONE 0.25 MG TABLET PO SCH ×3 (05:05→22:13)
[2018-04-15] MEDS: IPRATROPIUM/ALBUTEROL 0.5-2.5 MG/3 ML AMPUL NEB SCH ×2 (09:05→20:22)
--- NOTE | 2018-04-15 11:49 | RADIOLOGY REPORT (SQ) ---
EXAM DESCRIPTION: CHEST SINGLE VIEW COMPLETED DATE/TIME: 04/15/2018 11:36 am REASON FOR STUDY: shortness of breath r/o edema COMPARISON: 04/12/2018. EXAM PARAMETERS: NUMBER OF VIEWS: One view. TECHNIQUE: Single frontal radiographic view of the chest acquired. RADIATION DOSE: NA LIMITATIONS: None. FINDINGS: LUNGS AND PLEURA: Minimal scarring in the left lung base. No focal infiltrates, masses or pneumothorax. No pleural effusion. MEDIASTINUM AND HILAR STRUCTURES: No masses. Contour normal. HEART AND VASCULAR STRUCTURES: Heart normal in size. Normal vasculature. BONES: No acute findings. HARDWARE: None in the chest. OTHER: No other significant finding. IMPRESSION: NO ACUTE RADIOGRAPHIC FINDING IN THE CHEST. TECHNICAL DOCUMENTATION: JOB ID: [id number] [facility]- All Rights Reserved Reading location - IP/workstation name: [email or web address]
[2018-04-15] MEDS: AMLODIPINE BESYLATE 5 MG TABLET PO SCH (11:56)
[2018-04-15] MEDS: ASPIRIN 325 MG TABLET, ENT COATED PO SCH (11:56)
[2018-04-15] MEDS: CALCIUM CARBONATE 250 MG/VITAMIN D3 125 UNIT TABLET PO SCH ×2 (11:56→18:24)
[2018-04-15] MEDS: DOCUSATE SODIUM 100 MG CAPSULE PO SCH (11:56)
[2018-04-15] MEDS: CHOLECALCIFEROL (D3) 1,000 UNIT TABLET PO SCH (11:56)
[2018-04-15] MEDS: NITROGLYCERIN 15 MG (0.6 MG/1 HR) PATCH.TD24 TD SCH (11:57)
[2018-04-15] MEDS: LOSARTAN POTASSIUM 50 MG TABLET PO SCH (11:57)
[2018-04-15] MEDS: ESCITALOPRAM OXALATE 10 MG TABLET PO SCH (11:57)
--- NOTE | 2018-04-15 15:26 | PDOC PROGRESS REPORT ---
Subjective Progress Note for:: 04/15/18 Subjective:: she more alert today- tells me she's not in any pain- denies chest pain, SOB, abdominal pain, n/v or dizziness. tells me she's tired and sleepy - tells me she didn't sleep well last night. Reason For Visit: PNEUMONIA,NSTEMI Physical Exam Vital Signs: Temp Pulse Resp BP Pulse Ox 97.8 F 74 16 118/40 L 92 04/15/18 08:02 04/15/18 09:05 04/15/18 09:05 04/15/18 08:02 04/15/18 09:05 Intake & Output 04/14/18 04/15/18 04/16/18 06:59 06:59 06:59 Intake Total 455 1627 Output Total 825 700 Balance -370 927 Weight 179 lb 0.246 oz 179 lb 0.246 oz General appearance: PRESENT: no acute distress Head exam: PRESENT: atraumatic, normocephalic Eye exam: PRESENT: EOMI. ABSENT: conjunctival injection, scleral icterus Respiratory exam: PRESENT: crackles, decreased breath sounds, symmetrical, other - on 2L o2 Cardiovascular exam: PRESENT: +S1, +S2 Pulses: PRESENT: +2 pedal pulses bilateral GI/Abdominal exam: PRESENT: normal bowel sounds, soft. ABSENT: tenderness Extremities exam: PRESENT: pedal edema - bilaterally- 1+ Neurological exam: PRESENT: alert, awake, oriented to person, oriented to place, oriented to time, CN II-XII grossly intact, other - told me her name, , that she's in a hospital- knew that it is march 2018 Skin exam: PRESENT: dry, warm Results Laboratory Results: 04/14/18 09:17 04/14/18 09:17 04/12/18 04/12/18 04/12/18 16:29 16:29 19:40 Creatine Kinase 234 H CK-MB (CK-2) 8.65 H 12.50 H Troponin I 0.155 0.208 NT-Pro-B Natriuret Pep 1370 H 04/12/18 04/13/18 04/14/18 19:40 04:29 09:17 Creatine Kinase 360 H CK-MB (CK-2) 9.93 H Troponin I 0.148 0.036 NT-Pro-B Natriuret Pep 04/14/18 04/14/18 11:58 15:05 Creatine Kinase CK-MB (CK-2) Troponin I 0.027 0.026 NT-Pro-B Natriuret Pep Impressions: Chest X-Ray 04/12/18 18:47 IMPRESSION: Cannot exclude a minimal right upper lobe pneumonia. Head CT 04/13/18 00:00 IMPRESSION: No acute intracranial findings. Assessment & Plan - Diagnosis (1) Acute hypoxemic respiratory failure Is this a current diagnosis for this admission?: Yes (2) Right upper lobe pneumonia Is this a current diagnosis for this admission?: Yes (3) Coronary artery disease status post sten Is this a current diagnosis for this admission?: Yes (4) Diabetes mellitus type 2 in obese Is this a current diagnosis for this admission?: Yes (5) Non-STEMI (non-ST elevated myocardial infarction) Is this a current diagnosis for this admission?: Yes (6) Dementia Is this a current diagnosis for this admission?: Yes (7) Hypothyroidism Is this a current diagnosis for this admission?: Yes - Plan Summary Plan Summary: Acute respiratory failure with hypoxia- remains on supplemental O2- will ask RT to wean as tolerated to back to baseline RUL PNA- on levaquin started on 04/14 per chart. CXR showed ?RUL pneumonia. NSTEMI- troponin trended down. Cardiology is consulted. likely this demand ischemia. on ASA and Plavix. HTN- c/w losartan and norvasc for now. BP appropriate so far acute on chronic anemia- Hb was >10 on arrival but now 8.5. she did receive a lot of IV fluids the first 1-2 days after arrival. i have stopped her fluids- ?dilutional. no signs of active bleed- will start her on iron supplements. MCV <80. Dementia- today she was having a better day- able to answer me questions- denies any pain. monitor her mentation for now. there have been no family at bedside every time i have seen her. i would like to discuss her CODE status but i haven't been able to get a hold of anyone. no family members during the day have come and wanted to speak with me. i have asked nursing to call me if anyone comes to visit so i can talk to them about her care
--- NOTE | 2018-04-15 16:45 | Progress Note ---
Provider Note Provider Note: CARDIOLOGY PROGRESS NOTE by Dr. Venice Bateman on 04/15/2018. SUBJECTIVE: The patient continues to be confused. She does not seem to be in any acute distress. She does not seem to be coughing. She she responds that she has no chest pain or discomfort or shortness of breath. There is no arrhythmias seen on the monitor. The patient moves all 4 extremities. PHYSICAL EXAMINATION: The patient is well-built, and she is well-groomed, in no acute distress. Selected Entries 04/15/18 04/15/18 04/15/18 08:02 09:05 11:40 Temperature 97.8 F 98.4 F Temperature Axillary Oral Source Pulse Rate 74 71 Respiratory 18 Rate Blood Pressure 118/40 L 139/56 H Blood Pressure 66 83 Mean BP Location Right Arm Right Arm BP Position Supine Supine O2 Sat by Pulse 92 90 L Oximetry Oxygen Flow 2.00 1.50 Rate Oxygen Delivery Nasal Cannula Nasal Cannula Method HEAD: Is atraumatic normocephalic. EYES: Pupils are equal round regular reactive to light and accommodation. There is mild conjunctival pallor. There is no scleral icterus. Ears: Tympanic membranes are intact. External auditory canals are clear. Nose: Mucous membranes of the nose are not inflamed. There is no deviated nasal septum. There is no nasal polyps. MOUTH: Mucous membranes of mouth, and tongue are moist. There is no bleeding from the gums. THROAT: There is no redness of the oropharynx. There is no exudates. SKIN: There is no petechia or ecchymosis. There is no skin rashes or skin lesions. NECK: Supple. There is no JVD. Carotids are equal there is no bruits. There is no lymphadenopathy. There is no goiter. There is no accessory muscle respiration use. There is no goiter. Trachea central. LUNGS: There is a dry crackles in the right upper lobe. The rest of the lungs are clear. There is no rhonchi or wheezing. There is no chest wall tenderness. HEART: S1-S2 is heard. There is no S3 gallop there is no S4 gallop. There is systolic murmur in the aortic area without evidence of aortic stenosis. There is mild mitral regurgitation murmur with the murmur from the apex radiating towards the axilla. There is no rub. ABDOMEN: Is soft. There is no hepatosplenomegaly. Bowel sounds are normal. There is no guarding rebound or rigidity. EXTREMITIES: Femorals are diminished there is no femoral bruits leg pulses are diminished. There is no pedal edema. There is no DVT or cellulitis. There is no calf tenderness. 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 There is no focal deficits. PSYCHIATRIC: The patient is not agitated. Full psychiatric examination could not be obtained due to the patient's dementia. 04/15/18 04/15/18 06:19 10:44 POC Glucose 129 H 112 H EKG shows sinus rhythm with diffuse nonspecific T flattening. Chest x-ray shows no acute infiltrates. No evidence of pneumonia or heart failure. IMPRESSION/RECOMMENDATION: 1. 1. Acute hypoxic respiratory failure on admission. Now seems to have resolved with the nasal oxygen, with a sats now being 94%. 2. Elevated troponin I: This is most likely secondary to supply demand mismatch. Although the patient is said to have been admitted with chest pain or shortness of breath, it is not clear what the chest pain is anginal or nonanginal, and the patient's mental status she cannot state exactly what her symptoms are. There is a history of coronary artery disease in the patient with stent placement. But with the lack of acute EKG changes I would favor the diagnosis of type II supply demand mismatch myocardial infarction rather than a non-ST elevation CA. But to be sure since the patient cannot give a good history I would continue the patient on aspirin, amlodipine, and add topical nitrate. Note that the troponin I has trended down. Although the echocardiogram is not a very good study there is probably no wall motion abnormality which would favor the argument that this is not a diagnosis of a non-ST elevation CA, but is supple very demand mismatch type II myocardial infarction.. In view of the patient's age, and significant degree of dementia, and lack of symptoms in the patient i, she is not a candidate for aggressive treatment such as cardiac catheterization. Also would treat the patient medically, and would not subject the patient to a stress test, since the patient with her mental status will not be compliant with getting the test done. 3. Right upper lobe pneumonia: Continue antibiotics. 4. Hypertension: Blood pressure well controlled. 5. Diabetes Mellitus type II: Monitor blood sugars. Continue antidiabetic treatment 6. History of peripheral vascular disease. At present asymptomatic since the patient is bedridden. 7. Iron deficiency anemia: Recommend starting the patient on ferrous sulfate, and Hemoccult testing of stools. 8. Hypothyroidism: Note that the patient at home was on levothyroxine. Recommend restarting this. 9. Dementia which seems to be severe. Medications reviewed. Medications adjusted. Management plan discussed with attending physician on the case. Medical decision making is of moderate complexity at present. Note that the patient at present is a full code. She is not able to give who her surrogate healthcare decision maker S. 40 minutes spent on this patient more than 50% of time spent in direct patient care. Will follow with you. We will try to get up with the family to discuss further. Cardiac status is stable hence will sign off. This has been discussed with attending physician on the case.
--- NOTE | 2018-04-15 18:33 | EKG REPORT ---
SEVERITY:- BORDERLINE ECG - SINUS RHYTHM BORDERLINE LEFT AXIS DEVIATION BORDERLINE T WAVE ABNORMALITIES : Confirmed by: Chika Brown 15-Apr-2018 18:33:02
[2018-04-15] MEDS: TRAZODONE HCL 50 MG TABLET PO SCH (22:12)
[2018-04-15] MEDS: FERROUS SULFATE 325 MG TABLET PO SCH (22:13)
[2018-04-16 04:46] LABS: ABSOLUTE EOSINOPHILS # (AUTO) 0.2 10^3/uL (0.0-0.6); ABSOLUTE MONOCYTES (AUTO) 0.6 10^3/uL (0.1-1.4); ABSOLUTE NEUT (AUTO) 5.4 10^3/uL (1.7-8.2); BASOPHILS % (AUTO) 0.6 % (0-2); EOSINOPHILS % (AUTO) 3.3 % (0-6); HEMATOCRIT 23.4 % (36.0-47.0); LYMPHOCYTES % (AUTO) 13.4 % (13-45); MEAN CORPUSCULAR HEMOGLOBIN 24.2 pg (27.0-33.4); MEAN CORPUSCULAR VOLUME 73 fl (80-97); PLATELET COUNT 202 10^3/uL (150-450); RED BLOOD COUNT 3.19 10^6/uL (3.72-5.28); RED CELL DISTRIBUTION WIDTH 16.4 % (11.5-14.0); SEGMENTED NEUTROPHILS % (AUTO) 74.7 % (42-78); TOTAL CELLS COUNTED % (AUTO) 100 %; WHITE BLOOD COUNT 7.2 10^3/uL (4.0-10.5)
[2018-04-16 05:00] LABS: HEMOGLOBIN 7.7 g/dL (12.0-15.5)
[2018-04-16 05:17] LABS: FREE T3 1.72 pg/mL (2.77-5.27); FREE T4 (FREE THYROXINE) 1.58 ng/dL (0.78-2.19)
[2018-04-16 05:30] LABS: THYROID STIMULATING HORMONE 5.54 uIU/mL (0.47-4.68)
[2018-04-16] MEDS: RISPERIDONE 0.25 MG TABLET PO SCH ×3 (06:26→22:00)
[2018-04-16] MEDS: LEVOTHYROXINE SODIUM 0.025 MG TABLET PO SCH (06:27)
[2018-04-16] MEDS: LEVOTHYROXINE SODIUM 0.1 MG TABLET PO SCH (06:27)
[2018-04-16] MEDS ORDERED: NORMAL SALINE 250 ML IV PRN ×2 (07:29)
[2018-04-16] MEDS: IPRATROPIUM/ALBUTEROL 0.5-2.5 MG/3 ML AMPUL NEB SCH ×2 (08:57→20:20)
[2018-04-16] MEDS: CALCIUM CARBONATE 250 MG/VITAMIN D3 125 UNIT TABLET PO SCH ×2 (11:15→18:13)
[2018-04-16] MEDS: CHOLECALCIFEROL (D3) 1,000 UNIT TABLET PO SCH (11:16)
[2018-04-16] MEDS: AMLODIPINE BESYLATE 5 MG TABLET PO SCH (11:16)
[2018-04-16] MEDS: ASPIRIN 325 MG TABLET, ENT COATED PO SCH (11:16)
[2018-04-16] MEDS: CLOPIDOGREL BISULFATE 75 MG TABLET PO SCH (11:17)
[2018-04-16] MEDS: LOSARTAN POTASSIUM 50 MG TABLET PO SCH (11:17)
[2018-04-16] MEDS: ESCITALOPRAM OXALATE 10 MG TABLET PO SCH (11:17)
[2018-04-16] MEDS: NITROGLYCERIN 15 MG (0.6 MG/1 HR) PATCH.TD24 TD SCH (11:17)
[2018-04-16] MEDS: FERROUS SULFATE 325 MG TABLET PO SCH ×2 (11:17→22:00)
[2018-04-16] MEDS: DOCUSATE SODIUM 100 MG CAPSULE PO SCH (11:17)
--- NOTE | 2018-04-16 12:51 | PDOC PROGRESS REPORT ---
Subjective Progress Note for:: 04/16/18 Subjective:: went to see patient- she's laying in bed with Oxygen. she speaks very softly and slowly. i asked her 2 questions too quickly and she got upset with me and spoke up loud "give me a change to answer" she told me. we spoke. 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 i asked her if she has family - states no. she's a [employer] of [employer]. i asked her about blood consent and she agrees. i asked her if anything hurts- she denies- denies chest pain, SOB, abdominal pain, n/v or dizziness Reason For Visit: PNEUMONIA,NSTEMI Physical Exam Vital Signs: Temp Pulse Resp BP Pulse Ox 99.1 F 77 18 140/49 H 90 L 04/16/18 11:37 04/16/18 11:37 04/16/18 11:37 04/16/18 11:37 04/16/18 11:37 Intake & Output 04/15/18 04/16/18 04/17/18 06:59 06:59 06:59 Intake Total 1627 118 0 Output Total 700 675 250 Balance 927 -227 -250 Weight 179 lb 0.246 oz 182 lb 15.739 oz General appearance: PRESENT: no acute distress Head exam: PRESENT: atraumatic, normocephalic Eye exam: PRESENT: EOMI. ABSENT: conjunctival injection, scleral icterus Ear exam: PRESENT: normal external ear exam Mouth exam: PRESENT: tongue midline Neck exam: ABSENT: tracheal deviation Respiratory exam: PRESENT: clear to auscultation nohemi, symmetrical Cardiovascular exam: PRESENT: +S1, +S2 Pulses: PRESENT: +2 pedal pulses bilateral GI/Abdominal exam: PRESENT: normal bowel sounds, soft. ABSENT: tenderness Extremities exam: ABSENT: pedal edema Neurological exam: PRESENT: alert, awake, oriented to person, oriented to place, CN II-XII grossly intact Skin exam: PRESENT: dry, warm Results Laboratory Results: 04/16/18 04:14 04/14/18 09:17 04/16/18 04/16/18 04/16/18 04:14 04:14 08:28 WBC 7.2 RBC 3.19 L Hgb 7.7 L Hct 23.4 L MCV 73 L MCH 24.2 L MCHC 33.0 RDW 16.4 H Plt Count 202 Seg Neutrophils % 74.7 Lymphocytes % 13.4 Monocytes % 8.0 Eosinophils % 3.3 Basophils % 0.6 Absolute Neutrophils 5.4 Absolute Lymphocytes 1.0 Absolute Monocytes 0.6 Absolute Eosinophils 0.2 Absolute Basophils 0.0 TSH 5.54 H Free T4 1.58 Free T3 pg/mL 1.72 L Blood Type A POSITIVE Antibody Screen NEGATIVE 04/12/18 04/12/18 04/12/18 16:29 16:29 19:40 Creatine Kinase 234 H CK-MB (CK-2) 8.65 H 12.50 H Troponin I 0.155 0.208 NT-Pro-B Natriuret Pep 1370 H 04/12/18 04/13/18 04/14/18 19:40 04:29 09:17 Creatine Kinase 360 H CK-MB (CK-2) 9.93 H Troponin I 0.148 0.036 NT-Pro-B Natriuret Pep 04/14/18 04/14/18 11:58 15:05 Creatine Kinase CK-MB (CK-2) Troponin I 0.027 0.026 NT-Pro-B Natriuret Pep Impressions: Head CT 04/13/18 00:00 IMPRESSION: No acute intracranial findings. Chest X-Ray 04/15/18 00:00 IMPRESSION: NO ACUTE RADIOGRAPHIC FINDING IN THE CHEST. Assessment & Plan - Diagnosis (1) Acute hypoxemic respiratory failure Is this a current diagnosis for this admission?: Yes (2) Right upper lobe pneumonia Is this a current diagnosis for this admission?: Yes (3) Coronary artery disease status post sten Is this a current diagnosis for this admission?: Yes (4) Diabetes mellitus type 2 in obese Is this a current diagnosis for this admission?: Yes (5) Non-STEMI (non-ST elevated myocardial infarction) Is this a current diagnosis for this admission?: Yes (6) Dementia Is this a current diagnosis for this admission?: Yes (7) Hypothyroidism Is this a current diagnosis for this admission?: Yes (8) Acute on chronic anemia Is this a current diagnosis for this admission?: Yes - Plan Summary Plan Summary: Acute respiratory failure with hypoxia- remains on supplemental O2- likely 2/2 PNA? i am not sure if she has any other underlying causes. will ask RT to wean as tolerated to back to baseline RUL PNA- on levaquin started on 04/14 per chart. Initial CXR showed RUL pneumonia. and repeat CXR 04/15/18 shows no infiltrate. Acute on chronic anemia- Hb < 7.7. i do not see signs of bleeding- will send for hemoccult stool - since she has CAD we would like to keep her HB >8 so i have ordered 1u pRBC but she's [employer] so we need permission- nursing is trying to get in touch with state now. will repeat CBC Q12h. MCV < 80- started on Iron supplements. she's not complaining of any pain so it is difficult to assess if she has a GI bleed. may need further GI evaluation if her Hb continues to drop. NSTEMI- troponin trended down. Cardiology is consulted. likely this demand ischemia. on ASA and Plavix. HTN- c/w losartan and norvasc for now. BP appropriate so far Dementia- today she was having a better day- able to answer me questions- denies any pain. monitor her mentation for now. hypothyroid- restarted on synthroid
[2018-04-16] MEDS ORDERED: DEXTROSE 40% GEL 15 GM TUBE PO PRN ×2 (14:28)
[2018-04-16] MEDS ORDERED: DEXTROSE 50%-WATER 25 GM/50 ML DISP.SYRIN IV PRN ×2 (14:28)
[2018-04-16] MEDS ORDERED: GLUCAGON,HUMAN RECOMB 1 MG INJ IM PRN (14:28)
[2018-04-16 16:02] LABS: HEMATOCRIT 32.8 % (36.0-47.0); MEAN CORPUSCULAR HEMOGLOBIN 24.5 pg (27.0-33.4); MEAN CORPUSCULAR HGB CONC 32.4 g/dL (32.0-36.0); MEAN CORPUSCULAR VOLUME 76 fl (80-97); PLATELET COUNT 206 10^3/uL (150-450); RED BLOOD COUNT 4.34 10^6/uL (3.72-5.28); RED CELL DISTRIBUTION WIDTH 17.1 % (11.5-14.0); WHITE BLOOD COUNT 8.2 10^3/uL (4.0-10.5)
[2018-04-16 16:03] LABS: HEMOGLOBIN 10.6 g/dL (12.0-15.5)
[2018-04-16] MEDS: LEVOFLOXACIN 750 MG/D5W RTU 750 MG/150 ML RTUPB IV SCH (18:13)
[2018-04-16] MEDS: INSULIN LISPRO 100 UNIT/ML 3 ML VIAL SUBCUT PRN ×2 (18:13→21:59)
[2018-04-16] MEDS: TRAZODONE HCL 50 MG TABLET PO SCH (21:59)
[2018-04-17] MEDS ORDERED: NA PHOS,M-B/NA PHOS,DI-BA (ADULT) 133 ML ENEMA PR PRN (04:55)
[2018-04-17] MEDS ORDERED: NA PHOS,M-B/NA PHOS,DI-BA (ADULT) 133 ML ENEMA PR SCH (05:00)
[2018-04-17] MEDS ORDERED: LACTULOSE SYRUP 20 GM/30 ML UDCUP PO ONE (05:00)
[2018-04-17 05:13] LABS: ABSOLUTE EOSINOPHILS # (AUTO) 0.1 10^3/uL (0.0-0.6); ABSOLUTE LYMPHOCYTES (AUTO) 1.1 10^3/uL (0.5-4.7); ABSOLUTE MONOCYTES (AUTO) 0.7 10^3/uL (0.1-1.4); ABSOLUTE NEUT (AUTO) 6.6 10^3/uL (1.7-8.2); BASOPHILS % (AUTO) 0.4 % (0-2); EOSINOPHILS % (AUTO) 1.2 % (0-6); HEMATOCRIT 30.8 % (36.0-47.0); LYMPHOCYTES % (AUTO) 13.3 % (13-45); MEAN CORPUSCULAR HEMOGLOBIN 24.4 pg (27.0-33.4); MEAN CORPUSCULAR HGB CONC 32.5 g/dL (32.0-36.0); MEAN CORPUSCULAR VOLUME 75 fl (80-97); MONOCYTES % (AUTO) 7.9 % (3-13); PLATELET COUNT 204 10^3/uL (150-450); RED BLOOD COUNT 4.11 10^6/uL (3.72-5.28); RED CELL DISTRIBUTION WIDTH 17.1 % (11.5-14.0); SEGMENTED NEUTROPHILS % (AUTO) 77.2 % (42-78); TOTAL CELLS COUNTED % (AUTO) 100 %; WHITE BLOOD COUNT 8.5 10^3/uL (4.0-10.5)
[2018-04-17] MEDS: LEVOTHYROXINE SODIUM 0.025 MG TABLET PO SCH (05:47)
[2018-04-17] MEDS: LEVOTHYROXINE SODIUM 0.1 MG TABLET PO SCH (05:47)
[2018-04-17] MEDS: RISPERIDONE 0.25 MG TABLET PO SCH ×3 (05:47→21:19)
[2018-04-17] MEDS ORDERED: NA PHOS,M-B/NA PHOS,DI-BA (ADULT) 133 ML ENEMA PR ONE (06:00)
[2018-04-17] MEDS: IPRATROPIUM/ALBUTEROL 0.5-2.5 MG/3 ML AMPUL NEB SCH ×2 (08:21→19:39)
[2018-04-17] MEDS: ASPIRIN 325 MG TABLET, ENT COATED PO SCH (10:25)
[2018-04-17] MEDS: AMLODIPINE BESYLATE 5 MG TABLET PO SCH (10:25)
[2018-04-17] MEDS: CALCIUM CARBONATE 250 MG/VITAMIN D3 125 UNIT TABLET PO SCH ×2 (10:25→17:23)
[2018-04-17] MEDS: CHOLECALCIFEROL (D3) 1,000 UNIT TABLET PO SCH (10:26)
[2018-04-17] MEDS: ESCITALOPRAM OXALATE 10 MG TABLET PO SCH (10:26)
[2018-04-17] MEDS: DOCUSATE SODIUM 100 MG CAPSULE PO SCH ×2 (10:26→17:22)
[2018-04-17] MEDS: LOSARTAN POTASSIUM 50 MG TABLET PO SCH (10:26)
[2018-04-17] MEDS: NITROGLYCERIN 15 MG (0.6 MG/1 HR) PATCH.TD24 TD SCH (10:26)
[2018-04-17] MEDS: FERROUS SULFATE 325 MG TABLET PO SCH ×2 (10:26→21:19)
[2018-04-17] MEDS: CLOPIDOGREL BISULFATE 75 MG TABLET PO SCH (10:26)
[2018-04-17] MEDS: LEVOFLOXACIN 500 MG TABLET PO SCH (15:11)
--- NOTE | 2018-04-17 18:07 | PDOC PROGRESS REPORT ---
Subjective Progress Note for:: 04/17/18 Subjective:: saw patient on rounds this morning. she was her baseline self as yesterday. she's laying on the bed- comfortable. she answered my questions. denies any pain- denies chest pain, SOB, abdominal pain, n/v or dizziness. Reason For Visit: PNEUMONIA,NSTEMI Physical Exam Vital Signs: Temp Pulse Resp BP Pulse Ox 98.1 F 78 20 132/56 H 96 04/17/18 15:58 04/17/18 15:58 04/17/18 15:58 04/17/18 15:58 04/17/18 16:00 Intake & Output 04/16/18 04/17/18 04/18/18 06:59 06:59 06:59 Intake Total 118 470 Output Total 675 1200 775 Balance -557 -730 -775 Weight 182 lb 15.739 oz 185 lb 6.54 oz General appearance: PRESENT: no acute distress Head exam: PRESENT: atraumatic, normocephalic Eye exam: PRESENT: EOMI. ABSENT: conjunctival injection, scleral icterus Ear exam: PRESENT: normal external ear exam Mouth exam: PRESENT: moist, tongue midline Neck exam: ABSENT: tracheal deviation Respiratory exam: PRESENT: clear to auscultation nohemi, symmetrical Cardiovascular exam: PRESENT: +S1, +S2 Pulses: PRESENT: +1 pedal pulses bilateral GI/Abdominal exam: PRESENT: normal bowel sounds, soft. ABSENT: tenderness Extremities exam: ABSENT: pedal edema Neurological exam: PRESENT: alert, awake, oriented to person, oriented to time - know its march and its "", CN II-XII grossly intact Psychiatric exam: PRESENT: flat affect Skin exam: PRESENT: dry, warm Results Laboratory Results: 04/17/18 04:35 04/14/18 09:17 04/17/18 04:35 WBC 8.5 RBC 4.11 Hgb 10.0 L Hct 30.8 L MCV 75 L MCH 24.4 L MCHC 32.5 RDW 17.1 H Plt Count 204 Seg Neutrophils % 77.2 Lymphocytes % 13.3 Monocytes % 7.9 Eosinophils % 1.2 Basophils % 0.4 Absolute Neutrophils 6.6 Absolute Lymphocytes 1.1 Absolute Monocytes 0.7 Absolute Eosinophils 0.1 Absolute Basophils 0.0 04/12/18 17:30 Blood Blood Culture - Final NO GROWTH IN 5 DAYS 04/12/18 16:34 Blood Blood Culture - Final NO GROWTH IN 5 DAYS 04/12/18 04/12/18 04/12/18 16:29 16:29 19:40 Creatine Kinase 234 H CK-MB (CK-2) 8.65 H 12.50 H Troponin I 0.155 0.208 NT-Pro-B Natriuret Pep 1370 H 04/12/18 04/13/18 04/14/18 19:40 04:29 09:17 Creatine Kinase 360 H CK-MB (CK-2) 9.93 H Troponin I 0.148 0.036 NT-Pro-B Natriuret Pep 04/14/18 04/14/18 11:58 15:05 Creatine Kinase CK-MB (CK-2) Troponin I 0.027 0.026 NT-Pro-B Natriuret Pep Impressions: Head CT 04/13/18 00:00 IMPRESSION: No acute intracranial findings. Chest X-Ray 04/15/18 00:00 IMPRESSION: NO ACUTE RADIOGRAPHIC FINDING IN THE CHEST. Assessment & Plan - Diagnosis (1) Acute hypoxemic respiratory failure Is this a current diagnosis for this admission?: Yes (2) Right upper lobe pneumonia Is this a current diagnosis for this admission?: Yes (3) Coronary artery disease status post sten Is this a current diagnosis for this admission?: Yes (4) Diabetes mellitus type 2 in obese Is this a current diagnosis for this admission?: Yes (5) Non-STEMI (non-ST elevated myocardial infarction) Is this a current diagnosis for this admission?: Yes (6) Dementia Is this a current diagnosis for this admission?: Yes (7) Hypothyroidism Is this a current diagnosis for this admission?: Yes (8) Acute on chronic anemia Is this a current diagnosis for this admission?: Yes - Plan Summary Plan Summary: Acute respiratory failure with hypoxia- remains on supplemental O2- likely 2/2 PNA? her O2 had been increased today to 3-4L - not sure why- she's Sating >92%- asked to wean it down as tolerated RUL PNA- on levaquin started on 04/14 per chart. Initial CXR showed RUL pn eumonia. and repeat CXR 04/15/18 shows no infiltrate. I have lowered her to Levaquin 500mg for 3 more days for total 5 days Acute on chronic anemia- today Hb is >10- likely she doesn't have a bleed and it was a lab error since here went up 3grams with 1u pRBCs. i do not see signs of bleeding- will send for hemoccult stool - since she has CAD we would like to keep her HB >8 NSTEMI- troponin trended down. Cardiology is consulted. likely this demand ischemia. on ASA and Plavix. HTN- c/w losartan and norvasc for now. BP appropriate so far Dementia- she continues to wax and wane- i do not know her baseline mentation- nurse called her assisted living and was told that this is how she is over there- she's assist of 1-2 to get out of bed. hypothyroid- restarted on synthroid
--- NOTE | 2018-04-17 18:09 | Progress Note ---
Provider Note Provider Note: today there was some family friend at bedside- they tell me that she has been declining in health for few months now. more than a month ago she was better with her mentation and mobility but she has been like this for over a month. they do not have any more information about her. [place]
--- NOTE | 2018-04-17 18:10 | Progress Note ---
Provider Note Provider Note: called by nursing again this evening- per nursing she's somewhat more sleepy and lethargic. but still responding to verbal commands and can talk. i ordered MRI brain but she has a stent- we do not know if it metal or not. canceled and ordered CT head to check for a bleed- not sure if this is sun downing, dementia or other causes. advised nursing to monitor and call back if any acute change in mentation or vitals
[2018-04-17 18:22] LABS: ARTERIAL BLOOD BASE EXCESS 6.5 mmol/L; ARTERIAL BLOOD HCO3 30.8 mmol/L (20-24); ARTERIAL BLOOD O2 SATURATION 97.7 % (94-98); ARTERIAL BLOOD PCO2 43.2 mmHg (35-45); ARTERIAL BLOOD PH 7.47 (7.35-7.45); ARTERIAL BLOOD PO2 96.1 mmHg (80-100); ARTERIAL BLOOD TOTAL CO2 32.1 mmol/L (21-25)
[2018-04-17 18:24] LABS: ARTERIAL BLOOD FIO2 3L
--- NOTE | 2018-04-17 19:44 | RADIOLOGY REPORT (SQ) ---
EXAM DESCRIPTION: CT HEAD WITHOUT COMPLETED DATE/TIME: 04/17/2018 7:33 pm REASON FOR STUDY: altered mental status COMPARISON: 04/13/2018 TECHNIQUE: Axial images acquired through the brain without intravenous contrast. Images reviewed wi th bone, brain and subdural windows. Additional sagittal and coronal reconstructions were generated. Images stored on PACS. All CT scanners at this facility use dose modulation, iterative reconstruction, and/or weight based d osing when appropriate to reduce radiation dose to as low as reasonably achievable (ALARA). [facility]: Dose Right [facility]: CareDose [facility]: Dose Right [facility]: Teradose 4D [facility]: Smart ActSocial RADIATION DOSE: CT Rad equipment meets quality standard of care and radiation dose reduction techniq ues were employed. CTDIvol: 53.2 mGy. DLP: 991 mGy-cm. mGy. LIMITATIONS: None. FINDINGS: VENTRICLES: Normal size and contour. CEREBRUM: Mild cortical atrophy. No masses. No hemorrhage. No midline shift. No evidence for acut e infarction. Normal archibald/white matter differentiation. No areas of low density in the white matter. CEREBELLUM: No masses. No hemorrhage. No alteration of density. No evidence for acute infarction. EXTRAAXIAL SPACES: No fluid collections. No masses. ORBITS AND GLOBE: No intra- or extraconal masses. Normal contour of globe without masses. CALVARIUM: No fracture. PARANASAL SINUSES: No fluid or mucosal thickening. SOFT TISSUES: No mass or hematoma. OTHER: No other significant finding. IMPRESSION: Mild involutional changes of aging with no acute intracranial imaging findings. EVIDENCE OF ACUTE STROKE: NO. COMMENT: Quality ID # [id number]: Final reports with documentation of one or more dose reduction techniques (e.g., Automated exposure control, adjustment of the mA and/or kV according to patient size, use of iterative reconstruction technique) TECHNICAL DOCUMENTATION: JOB ID: [id number] [employer]- All Rights Reserved Reading location - IP/workstation name: [email or web address]
[2018-04-18] MEDS: LEVOTHYROXINE SODIUM 0.025 MG TABLET PO SCH (05:04)
[2018-04-18] MEDS: LEVOTHYROXINE SODIUM 0.1 MG TABLET PO SCH (05:04)
[2018-04-18] MEDS: RISPERIDONE 0.25 MG TABLET PO SCH ×3 (05:04→22:11)
[2018-04-18] MEDS: IPRATROPIUM/ALBUTEROL 0.5-2.5 MG/3 ML AMPUL NEB SCH ×2 (08:12→19:22)
[2018-04-18] MEDS: INSULIN LISPRO 100 UNIT/ML 3 ML VIAL SUBCUT PRN ×2 (08:30→11:13)
[2018-04-18 08:52] LABS: ALANINE AMINOTRANSFERASE 21 U/L (9-52); ALKALINE PHOSPHATASE 95 U/L (38-126); ANION GAP 7 (5-19); ASPARTATE AMINO TRANSFERASE 18 U/L (14-36); BILIRUBIN,DIRECT 0.3 mg/dL (0.0-0.4); BILIRUBIN,TOTAL 0.3 mg/dL (0.2-1.3); BLOOD UREA NITROGEN 21 mg/dL (7-20); CARBON DIOXIDE 31 mmol/L (22-30); CHLORIDE 102 mmol/L (98-107); GLUCOSE 150 mg/dL (75-110); POTASSIUM 4.2 mmol/L (3.6-5.0); SODIUM 139.9 mmol/L (137-145)
[2018-04-18] MEDS: LEVOFLOXACIN 500 MG TABLET PO SCH (11:04)
[2018-04-18] MEDS: CHOLECALCIFEROL (D3) 1,000 UNIT TABLET PO SCH (11:04)
[2018-04-18] MEDS: DOCUSATE SODIUM 100 MG CAPSULE PO SCH ×2 (11:04→17:06)
[2018-04-18] MEDS: CLOPIDOGREL BISULFATE 75 MG TABLET PO SCH (11:05)
[2018-04-18] MEDS: LOSARTAN POTASSIUM 50 MG TABLET PO SCH (11:05)
[2018-04-18] MEDS: FERROUS SULFATE 325 MG TABLET PO SCH ×2 (11:05→22:12)
[2018-04-18] MEDS: ASPIRIN 325 MG TABLET, ENT COATED PO SCH (11:05)
[2018-04-18] MEDS: AMLODIPINE BESYLATE 5 MG TABLET PO SCH (11:05)
[2018-04-18] MEDS: ESCITALOPRAM OXALATE 10 MG TABLET PO SCH (11:05)
[2018-04-18] MEDS: CALCIUM CARBONATE 250 MG/VITAMIN D3 125 UNIT TABLET PO SCH ×2 (11:05→17:06)
[2018-04-18] MEDS: NITROGLYCERIN 15 MG (0.6 MG/1 HR) PATCH.TD24 TD SCH (11:06)
--- NOTE | 2018-04-18 16:58 | PDOC PROGRESS REPORT ---
Subjective Progress Note for:: 04/18/18 Subjective:: Seen on rounds this afternoon. She was laying on the bed but still has her neck tilted to the right. States her neck hurts hence she does not want to straighten it. I asked her to strain her neck and she was able to do it. She speaks very softly but can raise her voice if she wants to. She denies chest pain, shortness of breath, abdominal pain, nausea/vomiting or dizziness. I talked her about going back to her assisted living facility and she is not happy about it. I told her the discharge planning is working on a different facility for discharge. Reason For Visit: PNEUMONIA,NSTEMI Physical Exam Vital Signs: Temp Pulse Resp BP Pulse Ox 98.4 F 85 16 140/62 H 98 04/18/18 15:57 04/18/18 15:57 04/18/18 15:57 04/18/18 15:57 04/18/18 15:57 Intake & Output 04/17/18 04/18/18 04/19/18 06:59 06:59 06:59 Intake Total 470 Output Total 1200 1875 350 Balance -730 -1875 -350 Weight 185 lb 6.54 oz 178 lb 5.663 oz General appearance: PRESENT: no acute distress Head exam: PRESENT: atraumatic, normocephalic Eye exam: PRESENT: EOMI. ABSENT: conjunctival injection, scleral icterus Ear exam: PRESENT: normal external ear exam Mouth exam: PRESENT: moist, tongue midline Neck exam: ABSENT: tracheal deviation Respiratory exam: PRESENT: clear to auscultation nohemi, symmetrical Cardiovascular exam: PRESENT: +S1, +S2 Pulses: PRESENT: +1 pedal pulses bilateral GI/Abdominal exam: PRESENT: normal bowel sounds, soft. ABSENT: tenderness Extremities exam: ABSENT: pedal edema Neurological exam: PRESENT: alert, awake, oriented to person, oriented to place, oriented to time, CN II-XII grossly intact Skin exam: PRESENT: dry, warm Results Laboratory Results: 04/17/18 04:35 04/18/18 08:05 04/17/18 04/18/18 04/18/18 18:16 08:05 08:05 Carbonic Acid 1.30 HCO3/H2CO3 Ratio 23:1 ABG pH 7.47 H ABG pCO2 43.2 ABG pO2 96.1 ABG HCO3 30.8 H ABG O2 Saturation 97.7 ABG Base Excess 6.5 FiO2 3L Sodium 139.9 Potassium 4.2 Chloride 102 Carbon Dioxide 31 H Anion Gap 7 BUN 21 H Creatinine 0.81 Est GFR ( Amer) > 60 Est GFR (Non-Af Amer) > 60 Glucose 150 H Calcium 9.0 Magnesium 2.2 Total Bilirubin 0.3 AST 18 ALT 21 Alkaline Phosphatase 95 Ammonia < 8.7 L Total Protein 6.0 L Albumin 3.0 L 04/12/18 17:30 Blood Blood Culture - Final NO GROWTH IN 5 DAYS 04/12/18 16:34 Blood Blood Culture - Final NO GROWTH IN 5 DAYS 04/12/18 04/12/18 04/12/18 16:29 16:29 19:40 Creatine Kinase 234 H CK-MB (CK-2) 8.65 H 12.50 H Troponin I 0.155 0.208 NT-Pro-B Natriuret Pep 1370 H 04/12/18 04/13/18 04/14/18 19:40 04:29 09:17 Creatine Kinase 360 H CK-MB (CK-2) 9.93 H Troponin I 0.148 0.036 NT-Pro-B Natriuret Pep 04/14/18 04/14/18 11:58 15:05 Creatine Kinase CK-MB (CK-2) Troponin I 0.027 0.026 NT-Pro-B Natriuret Pep Impressions: Chest X-Ray 04/15/18 00:00 IMPRESSION: NO ACUTE RADIOGRAPHIC FINDING IN THE CHEST. Head CT 04/17/18 00:00 IMPRESSION: Mild involutional changes of aging with no acute intracranial imaging findings. EVIDENCE OF ACUTE STROKE: NO. Assessment & Plan - Diagnosis (1) Acute hypoxemic respiratory failure Is this a current diagnosis for this admission?: Yes (2) Right upper lobe pneumonia Is this a current diagnosis for this admission?: Yes (3) Coronary artery disease status post sten Is this a current diagnosis for this admission?: Yes (4) Diabetes mellitus type 2 in obese Is this a current diagnosis for this admission?: Yes (5) Non-STEMI (non-ST elevated myocardial infarction) Is this a current diagnosis for this admission?: Yes (6) Dementia Is this a current diagnosis for this admission?: Yes (7) Hypothyroidism Is this a current diagnosis for this admission?: Yes (8) Acute on chronic anemia Is this a current diagnosis for this admission?: Yes - Plan Summary Plan Summary: Acute respiratory failure with hypoxia- remains on supplemental O2- likely 2/2 PNA? It seems like she will be needing RUL PNA- on levaquin started on 04/14 per chart. Initial CXR showed RUL pneumonia. and repeat CXR 04/15/18 shows no infiltrate. I have lowered her to Levaquin 500mg for 2 more days for total 5 days Acute on chronic anemia- today Hb is >10- likely she doesn't have a bleed and it was a lab error since here went up 3grams with 1u pRBCs. i do not see signs of bleeding- will send for hemoccult stool - since she has CAD we would like to keep her HB >8. We will check CBC tomorrow NSTEMI- troponin trended down. Cardiology is consulted. likely this demand ischemia. She is on ASA and Plavix. HTN- c/w losartan and norvasc for now. BP appropriate so far Dementia- she continues to wax and wane- i do not know her baseline mentation- she seems as though she will be depressed as she did not want to go back to the assisted living. I asked her what is wrong but she really did not give me a clear answer. At this time she may go back to the assisted living tomorrow and follow-up with her PCP and possibly psychiatry if needed. hypothyroid- restarted on synthroid Disposition-spoke with case management I believe she will be going back to assisted living but not to the same facility she came from. Likely will discharge her in the morning.
[2018-04-19 05:36] LABS: ABSOLUTE EOSINOPHILS # (AUTO) 0.2 10^3/uL (0.0-0.6); ABSOLUTE LYMPHOCYTES (AUTO) 1.3 10^3/uL (0.5-4.7); ABSOLUTE MONOCYTES (AUTO) 0.9 10^3/uL (0.1-1.4); ABSOLUTE NEUT (AUTO) 6.4 10^3/uL (1.7-8.2); BASOPHILS % (AUTO) 0.5 % (0-2); EOSINOPHILS % (AUTO) 2.8 % (0-6); HEMATOCRIT 29.8 % (36.0-47.0); HEMOGLOBIN 9.7 g/dL (12.0-15.5); LYMPHOCYTES % (AUTO) 14.9 % (13-45); MEAN CORPUSCULAR HEMOGLOBIN 24.6 pg (27.0-33.4); MEAN CORPUSCULAR HGB CONC 32.6 g/dL (32.0-36.0); MEAN CORPUSCULAR VOLUME 75 fl (80-97); MONOCYTES % (AUTO) 10.3 % (3-13); PLATELET COUNT 242 10^3/uL (150-450); RED BLOOD COUNT 3.95 10^6/uL (3.72-5.28); RED CELL DISTRIBUTION WIDTH 17.4 % (11.5-14.0); SEGMENTED NEUTROPHILS % (AUTO) 71.5 % (42-78); TOTAL CELLS COUNTED % (AUTO) 100 %; WHITE BLOOD COUNT 8.9 10^3/uL (4.0-10.5)
[2018-04-19] MEDS: LEVOTHYROXINE SODIUM 0.025 MG TABLET PO SCH (05:40)
[2018-04-19] MEDS: RISPERIDONE 0.25 MG TABLET PO SCH ×2 (05:40→14:11)
[2018-04-19] MEDS: LEVOTHYROXINE SODIUM 0.1 MG TABLET PO SCH (05:40)
[2018-04-19] MEDS: IPRATROPIUM/ALBUTEROL 0.5-2.5 MG/3 ML AMPUL NEB SCH ×2 (08:04→19:46)
[2018-04-19] MEDS: LEVOFLOXACIN 500 MG TABLET PO SCH (10:17)
[2018-04-19] MEDS: NITROGLYCERIN 15 MG (0.6 MG/1 HR) PATCH.TD24 TD SCH (10:29)
[2018-04-19] MEDS: LOSARTAN POTASSIUM 50 MG TABLET PO SCH (13:39)
[2018-04-19] MEDS: AMLODIPINE BESYLATE 5 MG TABLET PO SCH (13:39)
[2018-04-19] MEDS: ESCITALOPRAM OXALATE 10 MG TABLET PO SCH (13:39)
[2018-04-19] MEDS: DOCUSATE SODIUM 100 MG CAPSULE PO SCH ×2 (13:39→18:25)
[2018-04-19] MEDS: FERROUS SULFATE 325 MG TABLET PO SCH (13:39)
[2018-04-19] MEDS: ASPIRIN 325 MG TABLET, ENT COATED PO SCH (13:39)
[2018-04-19] MEDS: CLOPIDOGREL BISULFATE 75 MG TABLET PO SCH (13:40)
[2018-04-19] MEDS: CHOLECALCIFEROL (D3) 1,000 UNIT TABLET PO SCH (13:40)
[2018-04-19] MEDS: CALCIUM CARBONATE 250 MG/VITAMIN D3 125 UNIT TABLET PO SCH ×2 (13:40→18:25)
--- NOTE | 2018-04-19 14:04 | PDOC DISCHARGE SUMMARY ---
General - Admit/Disc Date/PCP Admission Date/Primary Care Provider: 04/12/18 21:03 ELYSE BOOTH MD Discharge Date: 04/19/18 - Discharge Diagnosis (1) Acute hypoxemic respiratory failure Is this a current diagnosis for this admission?: Yes (2) Right upper lobe pneumonia Is this a current diagnosis for this admission?: Yes (3) Coronary artery disease status post sten Is this a current diagnosis for this admission?: Yes (4) Diabetes mellitus type 2 in obese Is this a current diagnosis for this admission?: Yes (5) Non-STEMI (non-ST elevated myocardial infarction) Is this a current diagnosis for this admission?: Yes (6) Dementia Is this a current diagnosis for this admission?: Yes (7) Hypothyroidism Is this a current diagnosis for this admission?: Yes (8) Acute on chronic anemia Is this a current diagnosis for this admission?: Yes - Additional Information Resuscitation Status: Full Code Prescriptions: Ferrous Sulfate [Feosol 325 mg Tablet] 325 mg PO Q12 #60 tablet Levofloxacin [Levaquin 500 mg Tablet] 500 mg PO DAILY #1 tablet Home Medications: Amlodipine Besylate [Norvasc 5 mg Tablet] 5 mg PO DAILY 04/12/18 Aspirin [Ecotrin 325 mg EC Tablet] 325 mg PO DAILY 04/12/18 Calcium Carbonate/Vitamin D3 [Calcium 600 + Vit D 400 Tablet] 1 tab PO BID 04/12/18 Cholecalciferol (Vitamin D3) [Vitamin D3] 5,000 unit PO DAILY 04/12/18 Clopidogrel Bisulfate [Plavix 75 mg Tablet] 75 mg PO DAILY 04/12/18 Docusate Sodium [Colace 100 mg Capsule] 2 cap PO DAILY 04/12/18 Escitalopram Oxalate [Lexapro 10 mg Tablet] 10 mg PO DAILY 04/12/18 Levothyroxine Sodium [Synthroid] 125 mcg PO Q6AM 04/12/18 Losartan Potassium [Cozaar 50 mg Tablet] 50 mg PO DAILY 04/12/18 Pantoprazole Sodium [Protonix] 40 mg PO DAILY 04/12/18 Risperidone [Risperdal] 0.5 mg PO Q8 04/12/18 Trazodone HCl [Desyrel] 150 mg PO QHS 04/12/18 Ferrous Sulfate [Feosol 325 mg Tablet] 325 mg PO Q12 #60 tablet 04/19/18 Levofloxacin [Levaquin 500 mg Tablet] 500 mg PO DAILY #1 tablet 04/19/18 History of Present Illness History of Present Illness: YANDEL SUN is a 87 year old female who presented to the hospital for shortness of breath and found to have pneumonia and started on antibiotics Hospital Course Hospital Course: After admission to the hospital she was started on IV antibiotics and later switched to p.o. Levaquin. She has 1 more day of antibiotics left. She remains afebrile. Her white count has trended down. Unfortunately she still requires oxygen to keep her sats greater than 92%. Currently she is on 2 L of oxygen she should be continued on it until she is weaned off. I think this is all secondary to pneumonia and also deconditioning. She will probably benefit from continued physical therapy and rehab at the facility. She did have a repeat chest x-ray which did not show any further pneumonia. During her stay she also had a slight increase in her troponin and cardiology was consulted. They felt that it was all demand mismatch and less likely a cardiac event. Likely this was secondary to her pneumonia and deconditioning. Her troponins are trending down. She did not complain of any chest pain during her stay. She did have an echocardiogram which shows preserved EF with a diastolic dysfunction. Due to her low MCV and chronic anemia she was started on iron twice a day. Monitor for constipation. There was some concern about her deconditioning and her weakness. We have contacted the assisted living facility and they tell us that she has been like this for months now. Unfortunately it seems that this is her baseline and I am unable to have any more input into this since this time she was prior to coming to the hospital. I would appreciate if her primary care would look into her case and consider further evaluation for her current status. I spoke to her this afternoon prior to discharge and she had no complaints regarding chest pain, shortness of breath, abdominal pain, nausea/vomiting or diarrhea. Physical Exam Vital Signs: Temp Pulse Resp BP Pulse Ox 98.4 F 77 20 150/78 H 94 04/19/18 11:55 04/19/18 11:55 04/19/18 11:55 04/19/18 11:55 04/19/18 11:55 Intake & Output 04/18/18 04/19/18 04/20/18 06:59 06:59 06:59 Intake Total 120 Output Total 1875 500 Balance -1875 -500 120 Weight 178 lb 5.663 oz 177 lb 7.554 oz General appearance: PRESENT: no acute distress Head exam: PRESENT: atraumatic, normocephalic Eye exam: PRESENT: EOMI. ABSENT: conjunctival injection, scleral icterus Ear exam: PRESENT: normal external ear exam Mouth exam: PRESENT: moist, tongue midline Neck exam: ABSENT: tracheal deviation Respiratory exam: PRESENT: clear to auscultation nohemi, symmetrical Pulses: PRESENT: +2 pedal pulses bilateral GI/Abdominal exam: PRESENT: normal bowel sounds, soft. ABSENT: tenderness Extremities exam: ABSENT: pedal edema Neurological exam: PRESENT: alert, awake, oriented to person, oriented to place Skin exam: PRESENT: dry, warm Results Laboratory Results: 04/19/18 04:43 04/18/18 08:05 04/19/18 04:43 WBC 8.9 RBC 3.95 Hgb 9.7 L Hct 29.8 L MCV 75 L MCH 24.6 L MCHC 32.6 RDW 17.4 H Plt Count 242 Seg Neutrophils % 71.5 Lymphocytes % 14.9 Monocytes % 10.3 Eosinophils % 2.8 Basophils % 0.5 Absolute Neutrophils 6.4 Absolute Lymphocytes 1.3 Absolute Monocytes 0.9 Absolute Eosinophils 0.2 Absolute Basophils 0.0 04/12/18 04/12/18 04/12/18 16:29 16:29 19:40 Creatine Kinase 234 H CK-MB (CK-2) 8.65 H 12.50 H Troponin I 0.155 0.208 NT-Pro-B Natriuret Pep 1370 H 04/12/18 04/13/18 04/14/18 19:40 04:29 09:17 Creatine Kinase 360 H CK-MB (CK-2) 9.93 H Troponin I 0.148 0.036 NT-Pro-B Natriuret Pep 04/14/18 04/14/18 11:58 15:05 Creatine Kinase CK-MB (CK-2) Troponin I 0.027 0.026 NT-Pro-B Natriuret Pep Impressions: Chest X-Ray 04/15/18 00:00 IMPRESSION: NO ACUTE RADIOGRAPHIC FINDING IN THE CHEST. Head CT 04/17/18 00:00 IMPRESSION: Mild involutional changes of aging with no acute intracranial imaging findings. EVIDENCE OF ACUTE STROKE: NO. Qualifiers - * PATIENT BEING DISCHARGED WITH ANY OF THE FOLLOWING DIAGNOSIS: No Plan Time Spent: Greater than 30 Minutes
[2018-04-19 20:05] VITALS: BP 137/59
== END 2018-04-19 20:13 | DRG 189 ==
LOC: ER 16:11 → EH 21:03 → 3W 23:47
PROVIDERS: ADMIT Internal Medicine; ATTEND Internal Medicine
DX: J96.01 Acute respiratory failure with hypoxia (principal); I21.A1 Myocardial infarction type 2; J18.1 Lobar pneumonia, unspecified organism; I25.10 Atherosclerotic heart disease of native coronary artery without angina pectoris; F03.90 Unspecified dementia, unspecified severity, without behavioral disturbance, psychotic disturbance, mood disturbance, and anxiety; E03.9 Hypothyroidism, unspecified; D64.9 Anemia, unspecified; K21.9 Gastro-esophageal reflux disease without esophagitis; E11.9 Type 2 diabetes mellitus without complications; I10 Essential (primary) hypertension; I73.9 Peripheral vascular disease, unspecified; Z79.82 Long term (current) use of aspirin; Z79.899 Other long term (current) drug therapy; Z95.5 Presence of coronary angioplasty implant and graft; Z87.891 Personal history of nicotine dependence; Z88.0 Allergy status to penicillin; Z88.8 Allergy status to other drugs, medicaments and biological substances; Z86.73 Personal history of transient ischemic attack (TIA), and cerebral infarction without residual deficits
CPT/HCPCS: 36415; 36430; 51702; 70450; 71045; 80048; 80053; 81001; 82140; 82550; 82553; 82607; 82728; 82746; 82803; 82962; 83036; 83540; 83550; 83605; 83735; 83880; 84439; 84443; 84481; 84484; 85025; 85027; 85045; 86850; 86900; 86901; 86920; 87040; 93005; 93010; 93306; 94640; 94799; 96361; 96365; 99291; G0378; J1650; J1815; J1956; J3490; J7030; J7620; P9016

== ENCOUNTER 2018-04-21 11:48 | Inpatient (IN) | payer MEDICARE ==
[2018-04-21 12:17] LABS: ABSOLUTE MONOCYTES (AUTO) 0.6 10^3/uL (0.1-1.4); ABSOLUTE NEUT (AUTO) 9.3 10^3/uL (1.7-8.2); BASOPHILS % (AUTO) 0.3 % (0-2); EOSINOPHILS % (AUTO) 0.1 % (0-6); HEMATOCRIT 31.2 % (36.0-47.0); HEMOGLOBIN 10.2 g/dL (12.0-15.5); LYMPHOCYTES % (AUTO) 9.4 % (13-45); MEAN CORPUSCULAR HEMOGLOBIN 24.5 pg (27.0-33.4); MEAN CORPUSCULAR HGB CONC 32.5 g/dL (32.0-36.0); MEAN CORPUSCULAR VOLUME 75 fl (80-97); MONOCYTES % (AUTO) 5.6 % (3-13); PLATELET COUNT 275 10^3/uL (150-450); RED BLOOD COUNT 4.14 10^6/uL (3.72-5.28); RED CELL DISTRIBUTION WIDTH 17.4 % (11.5-14.0); SEGMENTED NEUTROPHILS % (AUTO) 84.6 % (42-78); TOTAL CELLS COUNTED % (AUTO) 100 %
[2018-04-21 12:18] LABS: INTERNATIONAL RATION (INR) 1.15; PROTHROMBIN TIME 15.3 SEC (11.4-15.4)
--- NOTE | 2018-04-21 12:28 | ER Document Report ---
ED General - General Chief Complaint: Fever Stated Complaint: ALTERED MENTAL STATUS Time Seen by Provider: 04/21/18 12:17 Primary Care Provider: ELYSE BOOTH MD [Primary Care Provider] - Follow up as needed Notes: Patient was just discharged from this facility yesterday. She was sent to a local [facility]. She is sent back here today because she is lethargic and unresponsive and febrile. Patient's temperature reported at 101 rectally. She is confused, but I do not know what her normal mental status is. She has a history of an old stroke. Severe peripheral vascular disease. Reviewing patient's discharge summary from her just completed admission shows that she was treated for hypoxia, pneumonia, non-STEMI, anemia, hypothyroid, and dementia. TRAVEL OUTSIDE OF THE [place] IN LAST 30 DAYS: No - Related Data Allergies/Adverse Reactions: Penicillins Allergy (Verified 04/12/18 18:22) prochlorperazine [From Compazine] Allergy (Verified 04/12/18 18:22) Past Medical History - Social History Smoking Status: Unknown if Ever Smoked Cigarette use (# per day): No Chew tobacco use (# tins/day): No Family History: Reviewed & Not Pertinent, Other - Unobtainable Patient has suicidal ideation: No Patient has homicidal ideation: No - Past Medical History Cardiac Medical History: Reports: Hx Coronary Artery Disease, Hx Hypertension, Hx Peripheral Vascular Disease Pulmonary Medical History: Reports: Hx Bronchitis Neurological Medical History: Reports: Hx Cerebrovascular Accident - Right-sided weakness Endocrine Medical History: Reports: Hx Diabetes Mellitus Type 2 - Prediabetes, Hx Hypothyroidism GI Medical History: Reports: Hx Gastroesophageal Reflux Disease Psychiatric Medical History: Reports: Hx Dementia Past Surgical History: Reports: Hx Cardiac Catheterization, Hx Coronary Stent Review of Systems - Review of Systems -: Yes ROS unobtainable due to patient's medical condition - Patient is not able to answer any questions. No family here. Physical Exam - Vital signs Vitals: Resp Pulse Ox 23 H 90 L 04/21/18 11:50 04/21/18 11:50 Interpretation: Hypoxic - Is now in the 90s on O2. - Notes Notes: PHYSICAL EXAMINATION: GENERAL: Patient is sleeping and does not arouse except with painful stimulus. HEAD: Atraumatic, normocephalic. EYES: Pupils equal round and reactive to light, extraocular movements intact. ENT: oropharynx clear without exudates. Moist mucous membranes. NECK: Normal range of motion, supple. LUNGS: Breath sounds shallow but clear and equal bilaterally. HEART: Regular rate and rhythm without murmurs. ABDOMEN: Soft, nontender. No guarding or rebound. No masses. BACK: No tenderness throughout entire back. EXTREMITIES: Decubitus lesions of the feet covered by padded bandage. NEUROLOGICAL: Patient does not answer questions and does not follow commands and no neurologic function can be determined. PSYCH: Unable to assess SKIN: Warm, dry, no rashes. Course - Re-evaluation Re-evalutation: 04/21/18 15:01 Spoke with hospitalist. Patient will be admitted to telemetry. - Vital Signs Vital signs: Temp Pulse Resp BP Pulse Ox 22 H 127/64 H 96 04/21/18 14:01 04/21/18 14:00 04/21/18 14:01 - Laboratory Result Diagrams: 04/21/18 11:43 04/21/18 11:43 Laboratory results interpreted by me: 04/21/18 04/21/18 04/21/18 11:43 11:43 12:00 WBC 11.0 H Hgb 10.2 L Hct 31.2 L MCV 75 L MCH 24.5 L RDW 17.4 H Seg Neutrophils % 84.6 H Lymphocytes % 9.4 L Absolute Neutrophils 9.3 H VBG pH 7.43 H BUN 42 H Est GFR (Non-Af Amer) 56 L Glucose 116 H Direct Bilirubin 0.7 H Alkaline Phosphatase 151 H Albumin 3.0 L Urine Urobilinogen 04/21/18 14:06 WBC Hgb Hct MCV MCH RDW Seg Neutrophils % Lymphocytes % Absolute Neutrophils VBG pH BUN Est GFR (Non-Af Amer) Glucose Direct Bilirubin Alkaline Phosphatase Albumin Urine Urobilinogen 4.0 H - Diagnostic Test Radiology results interpreted by al: 04/21/18 14:58 Chest x-ray shows bibasilar heterogeneous pulmonary opacity concerning for infection or aspiration. Cardiomegaly. - EKG Interpretation by Nc EKG shows normal: Sinus rhythm Rate: Normal Rhythm: NSR Discharge - Discharge Clinical Impression: Altered mental status, Fever, Pneumonia Condition: Stable Disposition: ADMITTED INPATIENT Admitting Provider: Hospitalist Unit Admitted: Telemetry Referrals: ELYSE BOOTH MD [Primary Care Provider] - Follow up as needed
[2018-04-21 12:49] LABS: ALANINE AMINOTRANSFERASE 20 U/L (9-52); ALKALINE PHOSPHATASE 151 U/L (38-126); ANION GAP 11 (5-19); ASPARTATE AMINO TRANSFERASE 29 U/L (14-36); BILIRUBIN,DIRECT 0.7 mg/dL (0.0-0.4); BLOOD UREA NITROGEN 42 mg/dL (7-20); CALCIUM 9.2 mg/dL (8.4-10.2); CARBON DIOXIDE 28 mmol/L (22-30); CHLORIDE 102 mmol/L (98-107); GLUCOSE 116 mg/dL (75-110); POTASSIUM 4.2 mmol/L (3.6-5.0); SODIUM 140.7 mmol/L (137-145); TOTAL PROTEIN 6.3 g/dL (6.3-8.2)
[2018-04-21 12:49] LABS: VENOUS BLOOD BASE EXCESS 3.9 mmol/L; VENOUS BLOOD HCO3 29.1 mmol/L (20-32); VENOUS BLOOD PCO2 44.5 mmHg (35-63); VENOUS BLOOD PH 7.43 (7.30-7.42)
--- NOTE | 2018-04-21 13:10 | RADIOLOGY REPORT (SQ) ---
EXAM DESCRIPTION: CHEST SINGLE VIEW COMPLETED DATE/TIME: 04/21/2018 12:47 pm REASON FOR STUDY: fever COMPARISON: 04/15/2018 EXAM PARAMETERS: NUMBER OF VIEWS: One view. TECHNIQUE: Single frontal radiographic view of the chest acquired. RADIATION DOSE: NA LIMITATIONS: None. FINDINGS: LUNGS AND PLEURA: Bibasilar heterogeneous pulmonary opacity. MEDIASTINUM AND HILAR STRUCTURES: No masses. Contour normal. HEART AND VASCULAR STRUCTURES: Cardiomegaly. BONES: No acute findings. HARDWARE: None in the chest. OTHER: No other significant finding. IMPRESSION: Bibasilar heterogeneous pulmonary opacity concerning for infection or aspiration. Cardi omegaly. TECHNICAL DOCUMENTATION: JOB ID: [id number] [employer]- All Rights Reserved Reading location - IP/workstation name: [email or web address]
[2018-04-21] MEDS ORDERED: CEFTRIAXONE INJ 1000 MG VIAL IV ONE (13:15)
[2018-04-21 14:18] LABS: APPEARANCE,URINE CLEAR; BILIRUBIN,URINE NEGATIVE (NEGATIVE); COLOR,URINE AMBER; GLUCOSE, URINE NEGATIVE (NEGATIVE); KETONES,URINE NEGATIVE (NEGATIVE); LEUKOCYTE ESTERASE,URINE NEGATIVE (NEGATIVE); NITRITE,URINE NEGATIVE (NEGATIVE); PROTEIN,URINE NEGATIVE (NEGATIVE); URINE SPECIFIC GRAVITY 1.019
--- NOTE | 2018-04-21 16:05 | PDOC H&P ---
History of Present Illness Admission Date/PCP: 04/21/18 15:19 ELYSE BOOTH MD History of Present Illness: YANDEL SUN is a 88 year old female who was just sent back to the [facility] 2 days ago after being hospitalized here for a pneumonia. She was supposed to be finishing up a course of Levaquin. There is no one here to provide a history and the patient's not in any condition to give me any information. Although I noticed that she was sent over here because she was "not acting right." Apparently she had a rectal temperature of 101 Fahrenheit. Chest x-ray is read as having some possible bibasilar opacities but does not look very impressive. Past Medical History Cardiac Medical History: Reports: Coronary Artery Disease, Hypertension, Peripheral Vascular Disease Pulmonary Medical History: Reports: Bronchitis Endocrine Medical History: Reports: Diabetes Mellitus Type 2 - Prediabetes, Hypothyroidism GI Medical History: Reports: Gastroesophageal Reflux Disease Psychiatric Medical History: Reports: Dementia Hematology: Reports: Anemia Past Surgical History Past Surgical History: Reports: Cardiac Catheterization, Coronary Stent Social History Smoking Status: Unknown if Ever Smoked Frequency of Alcohol Use: None Family History Family History: Reviewed & Not Pertinent, Other - Unobtainable Parental Family History Reviewed: No - Unable to obtain Children Family History Reviewed: No - Unable to obtain Sibling(s) Family History Reviewed.: No - Unable to obtain Medication/Allergy Home Medications: Amlodipine Besylate [Norvasc 5 mg Tablet] 5 mg PO DAILY 04/12/18 Aspirin [Ecotrin 325 mg EC Tablet] 325 mg PO DAILY 04/12/18 Calcium Carbonate/Vitamin D3 [Calcium 600 + Vit D 400 Tablet] 1 tab PO BID 04/12/18 Cholecalciferol (Vitamin D3) [Vitamin D3] 5,000 unit PO DAILY 04/12/18 Clopidogrel Bisulfate [Plavix 75 mg Tablet] 75 mg PO DAILY 04/12/18 Docusate Sodium [Colace 100 mg Capsule] 2 cap PO DAILY 04/12/18 Escitalopram Oxalate [Lexapro 10 mg Tablet] 10 mg PO DAILY 04/12/18 Levothyroxine Sodium [Synthroid] 125 mcg PO Q6AM 04/12/18 Losartan Potassium [Cozaar 50 mg Tablet] 50 mg PO DAILY 04/12/18 Pantoprazole Sodium [Protonix] 40 mg PO DAILY 04/12/18 Risperidone [Risperdal] 0.5 mg PO Q8 04/12/18 Trazodone HCl [Desyrel] 150 mg PO QHS 04/12/18 Ferrous Sulfate [Feosol 325 mg Tablet] 325 mg PO Q12 #60 tablet 04/19/18 Levofloxacin [Levaquin 500 mg Tablet] 500 mg PO DAILY #1 tablet 04/19/18 Allergies/Adverse Reactions: Penicillins Allergy (Verified 04/12/18 18:22) prochlorperazine [From Compazine] Allergy (Verified 04/12/18 18:22) Review of Systems ROS unobtainable: Due to mental status Physical Exam Vital Signs: Temp Pulse Resp BP Pulse Ox 22 H 127/64 H 96 04/21/18 14:01 04/21/18 14:00 04/21/18 14:01 General appearance: PRESENT: disheveled, other - Opens her eyes to verbal command and grimaced when the knuckler tried to draw blood but did not answer questions or follow commands Head exam: PRESENT: atraumatic, normocephalic Eye exam: ABSENT: conjunctival injection, scleral icterus Ear exam: PRESENT: normal external ear exam Mouth exam: PRESENT: neck supple Teeth exam: PRESENT: poor dentation Neck exam: PRESENT: full ROM. ABSENT: carotid bruit, JVD, lymphadenopathy, meningismus, tenderness, thyromegaly Respiratory exam: PRESENT: clear to auscultation nohemi, symmetrical, unlabored. ABSENT: accessory muscle use, crackles, prolonged expiratory phas, rhonchi, tachypnea, wheezes Cardiovascular exam: PRESENT: RRR, +S1, +S2 Pulses: PRESENT: normal carotid pulses Vascular exam: PRESENT: normal capillary refill GI/Abdominal exam: PRESENT: normal bowel sounds, soft. ABSENT: distended, guarding, rebound, tenderness Extremities exam: PRESENT: other - Had bunny boots on. ABSENT: clubbing, pedal edema Musculoskeletal exam: PRESENT: normal inspection. ABSENT: deformity Neurological exam: PRESENT: altered, oriented to person, aphasic Psychiatric exam: PRESENT: flat affect Skin exam: PRESENT: dry, pallor, warm Results Laboratory Results: 04/21/18 11:43 04/21/18 11:43 04/21/18 04/21/18 04/21/18 11:43 11:43 12:00 WBC 11.0 H RBC 4.14 Hgb 10.2 L Hct 31.2 L MCV 75 L MCH 24.5 L MCHC 32.5 RDW 17.4 H Plt Count 275 Seg Neutrophils % 84.6 H Lymphocytes % 9.4 L Monocytes % 5.6 Eosinophils % 0.1 Basophils % 0.3 Absolute Neutrophils 9.3 H Absolute Lymphocytes 1.0 Absolute Monocytes 0.6 Absolute Eosinophils 0.0 Absolute Basophils 0.0 VBG pH VBG pCO2 VBG HCO3 VBG Base Excess Sodium 140.7 Potassium 4.2 Chloride 102 Carbon Dioxide 28 Anion Gap 11 BUN 42 H Creatinine 0.94 Est GFR ( Amer) > 60 Est GFR (Non-Af Amer) 56 L Glucose 116 H Lactic Acid 0.8 Calcium 9.2 Total Bilirubin 1.0 AST 29 ALT 20 Alkaline Phosphatase 151 H Total Protein 6.3 Albumin 3.0 L Urine Color Urine Appearance Urine pH Ur Specific [place] Urine Protein Urine Glucose (UA) Urine Ketones Urine Blood Urine Nitrite Ur Leukocyte Esterase Urine WBC (Auto) Urine RBC (Auto) 04/21/18 04/21/18 12:00 14:06 WBC RBC Hgb Hct MCV MCH MCHC RDW Plt Count Seg Neutrophils % Lymphocytes % Monocytes % Eosinophils % Basophils % Absolute Neutrophils Absolute Lymphocytes Absolute Monocytes Absolute Eosinophils Absolute Basophils VBG pH 7.43 H VBG pCO2 44.5 VBG HCO3 29.1 VBG Base Excess 3.9 Sodium Potassium Chloride Carbon Dioxide Anion Gap BUN Creatinine Est GFR ( Amer) Est GFR (Non-Af Amer) Glucose Lactic Acid Calcium Total Bilirubin AST ALT Alkaline Phosphatase Total Protein Albumin Urine Color TAHIRA Urine Appearance CLEAR Urine pH 5.0 Ur Specific [place] 1.019 Urine Protein NEGATIVE Urine Glucose (UA) NEGATIVE Urine Ketones NEGATIVE Urine Blood NEGATIVE Urine Nitrite NEGATIVE Ur Leukocyte Esterase NEGATIVE Urine WBC (Auto) 2 Urine RBC (Auto) 1 Impressions: Chest X-Ray 04/21/18 12:05 IMPRESSION: Bibasilar heterogeneous pulmonary opacity concerning for infection or aspiration. Cardiomegaly. Assessment & Plan - Diagnosis (1) Altered mental status Qualifiers: Altered mental status type: unspecified Qualified Code(s): R41.82 - Altered mental status, unspecified Is this a current diagnosis for this admission?: Yes Plan: She had an elevated temperature of uncertain etiology. I am not terribly impressed by her chest x-ray, but because her urine looks okay have any other cause for her fever, and because she was recently here being treated for pneumonia, I am going to put her on meropenem, for the reasons just listed, but also because this lady looks like somebody who might aspirate, and that would be a reasonable explanation for her presentation. Blood cultures are pending. (2) Dementia Qualifiers: Dementia type: Alzheimer's disease Alzheimer's disease onset: unspecified onset Dementia behavioral disturbance: without behavioral disturbance Qualified Code(s): G30.9 - Alzheimer's disease, unspecified; F02.80 - Dementia in other diseases classified elsewhere without behavioral disturbance Is this a current diagnosis for this admission?: Yes Plan: Clearly playing a role in her current state. - Time Time Spent: 50 to 70 Minutes
[2018-04-21] MEDS ORDERED: (PENDING PHARMACY ID) (Calcium Carbonate/Vitamin D3 [Calcium 600 + Vit D 400 Tablet] 1 TAB PO SCH (18:00)
[2018-04-21] MEDS: CALCIUM CARBONATE 250 MG/VITAMIN D3 125 UNIT TABLET PO SCH (21:29)
[2018-04-21] MEDS ORDERED: (PENDING PHARMACY ID) (Risperidone [Risperdal] 0.5 MG) PO SCH (22:00)
[2018-04-21] MEDS ORDERED: MEROPENEM 1 GM in NORMAL SALINE 50 ML IV SCH (22:00)
[2018-04-21] MEDS ORDERED: MEROPENEM 500 MG in NORMAL SALINE 50 ML IV SCH (22:00)
[2018-04-21] MEDS: HEPARIN SOD (PORCINE) 5,000 UNIT/ML 1 ML SYRINGE SUBCUT SCH (22:35)
[2018-04-21] MEDS: MEROPENEM 1 GM in NORMAL SALINE 50 ML IV SCH (22:36)
[2018-04-21] MEDS: RISPERIDONE 0.25 MG TABLET PO SCH (22:37)
[2018-04-21] MEDS: FERROUS SULFATE 325 MG TABLET PO SCH (22:37)
--- NOTE | 2018-04-21 22:57 | EKG REPORT ---
SEVERITY:- ABNORMAL ECG - SINUS RHYTHM LEFT AXIS DEVIATION LVH WITH SECONDARY REPOLARIZATION ABNORMALITY : Confirmed by: Venice Bateman MD 21-Apr-2018 22:56:31
[2018-04-22] MEDS: HEPARIN SOD (PORCINE) 5,000 UNIT/ML 1 ML SYRINGE SUBCUT SCH ×3 (05:30→22:09)
[2018-04-22] MEDS: RISPERIDONE 0.25 MG TABLET PO SCH ×3 (05:31→22:09)
[2018-04-22] MEDS: LANSOPRAZOLE 30 MG TAB.RAP.DR PO SCH (05:31)
[2018-04-22] MEDS: LEVOTHYROXINE SODIUM 0.025 MG TABLET PO SCH (05:31)
[2018-04-22] MEDS: LEVOTHYROXINE SODIUM 0.1 MG TABLET PO SCH (05:32)
[2018-04-22] MEDS ORDERED: (PENDING PHARMACY ID) (Levothyroxine Sodium [Synthroid] 125 MCG) PO SCH (06:00)
[2018-04-22 07:07] LABS: HEMATOCRIT 30.9 % (36.0-47.0); HEMOGLOBIN 10.1 g/dL (12.0-15.5); MEAN CORPUSCULAR HEMOGLOBIN 24.5 pg (27.0-33.4); MEAN CORPUSCULAR HGB CONC 32.6 g/dL (32.0-36.0); MEAN CORPUSCULAR VOLUME 75 fl (80-97); PLATELET COUNT 250 10^3/uL (150-450); RED BLOOD COUNT 4.12 10^6/uL (3.72-5.28); RED CELL DISTRIBUTION WIDTH 17.4 % (11.5-14.0); WHITE BLOOD COUNT 8.1 10^3/uL (4.0-10.5)
[2018-04-22 07:22] LABS: BLOOD UREA NITROGEN 43 mg/dL (7-20); GLUCOSE 179 mg/dL (75-110); POTASSIUM 3.6 mmol/L (3.6-5.0)
[2018-04-22 07:28] LABS: ANION GAP 5 (5-19); CARBON DIOXIDE 32 mmol/L (22-30); CHLORIDE 103 mmol/L (98-107); SODIUM 139.6 mmol/L (137-145)
[2018-04-22] MEDS: MEROPENEM 1 GM in NORMAL SALINE 50 ML IV SCH ×2 (09:57→22:09)
[2018-04-22] MEDS ORDERED: (PENDING PHARMACY ID) (Cholecalciferol (Vitamin D3) [Vitamin D3] 5,000 UNIT) PO SCH (10:00)
[2018-04-22] MEDS: CHOLECALCIFEROL (D3) 1,000 UNIT TABLET PO SCH (10:06)
[2018-04-22] MEDS: FERROUS SULFATE 325 MG TABLET PO SCH ×2 (10:07→22:09)
[2018-04-22] MEDS: ESCITALOPRAM OXALATE 10 MG TABLET PO SCH (10:07)
[2018-04-22] MEDS: CLOPIDOGREL BISULFATE 75 MG TABLET PO SCH (10:07)
[2018-04-22] MEDS: DOCUSATE SODIUM 100 MG CAPSULE PO SCH (10:07)
[2018-04-22] MEDS: ASPIRIN 325 MG TABLET, ENT COATED PO SCH (10:07)
[2018-04-22] MEDS: RINGERS SOLUTION,LACTATED 1,000 ML IV PRN ×2 (11:37→23:36)
[2018-04-22] MEDS: CALCIUM CARBONATE 250 MG/VITAMIN D3 125 UNIT TABLET PO SCH ×2 (11:42→17:20)
--- NOTE | 2018-04-22 17:19 | PDOC PROGRESS REPORT ---
Subjective Progress Note for:: 04/22/18 Subjective:: No adverse events overnight. No fevers. She was fed some breakfast this morning and apparently she tolerated that very well. No cough or shortness of breath. Vital signs been stable. She is a little bit more awake and interactive today but still cannot provide much of a history. Reason For Visit: ENCEPHALOPATHY Physical Exam Vital Signs: Temp Pulse Resp BP Pulse Ox 98.5 F 86 20 130/62 H 97 04/22/18 08:19 04/22/18 14:00 04/22/18 08:19 04/22/18 08:19 04/22/18 08:19 Intake & Output 04/21/18 04/22/18 04/23/18 06:59 06:59 06:59 Intake Total 848 50 Output Total 280 Balance 568 50 Weight 74.5 kg General appearance: PRESENT: no acute distress, cooperative, disheveled, morbidly obese Respiratory exam: PRESENT: clear to auscultation nohemi, symmetrical, unlabored. ABSENT: accessory muscle use, crackles, prolonged expiratory phas, rhonchi, tachypnea, wheezes Cardiovascular exam: PRESENT: RRR, +S1, +S2, systolic murmur Pulses: PRESENT: normal carotid pulses Vascular exam: PRESENT: normal capillary refill GI/Abdominal exam: PRESENT: normal bowel sounds, soft. ABSENT: distended, guarding, rebound, tenderness Extremities exam: ABSENT: clubbing, pedal edema Musculoskeletal exam: PRESENT: normal inspection. ABSENT: deformity Neurological exam: PRESENT: awake, oriented to person. ABSENT: oriented to place, oriented to situation Psychiatric exam: PRESENT: flat affect Skin exam: PRESENT: dry, warm Results Laboratory Results: 04/22/18 06:06 04/22/18 06:06 04/22/18 04/22/18 06:06 06:06 WBC 8.1 RBC 4.12 Hgb 10.1 L Hct 30.9 L MCV 75 L MCH 24.5 L MCHC 32.6 RDW 17.4 H Plt Count 250 Sodium 139.6 Potassium 3.6 Chloride 103 Carbon Dioxide 32 H Anion Gap 5 BUN 43 H Creatinine 0.78 Est GFR ( Amer) > 60 Est GFR (Non-Af Amer) > 60 Glucose 179 H Calcium 9.0 Impressions: Chest X-Ray 04/21/18 12:05 IMPRESSION: Bibasilar heterogeneous pulmonary opacity concerning for infection or aspiration. Cardiomegaly. Assessment & Plan - Diagnosis (1) Altered mental status Qualifiers: Altered mental status type: unspecified Qualified Code(s): R41.82 - Altered mental status, unspecified Is this a current diagnosis for this admission?: Yes Plan: Possibly a metabolic encephalopathy from some sort of infection. We are treating her empirically for a pneumonia with meropenem. Cultures are pending. We also gave her some IV fluids she seems to be doing a little bit better. We do not know what her baseline mental status is like. (2) Dementia Qualifiers: Dementia type: Alzheimer's disease Alzheimer's disease onset: unspecified onset Dementia behavioral disturbance: without behavioral disturbance Qualified Code(s): G30.9 - Alzheimer's disease, unspecified; F02.80 - Dementia in other diseases classified elsewhere without behavioral disturbance Is this a current diagnosis for this admission?: Yes Plan: Clearly playing a role in her current state. Again, we do not know what her baseline mental status is. - Time Time Spent with patient: 25-34 minutes
[2018-04-23 05:44] LABS: HEMATOCRIT 28.6 % (36.0-47.0); HEMOGLOBIN 9.3 g/dL (12.0-15.5); MEAN CORPUSCULAR HEMOGLOBIN 24.5 pg (27.0-33.4); MEAN CORPUSCULAR HGB CONC 32.7 g/dL (32.0-36.0); MEAN CORPUSCULAR VOLUME 75 fl (80-97); PLATELET COUNT 254 10^3/uL (150-450); RED BLOOD COUNT 3.81 10^6/uL (3.72-5.28); RED CELL DISTRIBUTION WIDTH 17.4 % (11.5-14.0); WHITE BLOOD COUNT 6.8 10^3/uL (4.0-10.5)
[2018-04-23] MEDS: LANSOPRAZOLE 30 MG TAB.RAP.DR PO SCH (05:45)
[2018-04-23] MEDS: HEPARIN SOD (PORCINE) 5,000 UNIT/ML 1 ML SYRINGE SUBCUT SCH ×3 (05:45→21:17)
[2018-04-23] MEDS: LEVOTHYROXINE SODIUM 0.1 MG TABLET PO SCH (05:46)
[2018-04-23] MEDS: LEVOTHYROXINE SODIUM 0.025 MG TABLET PO SCH (05:46)
[2018-04-23] MEDS: RISPERIDONE 0.25 MG TABLET PO SCH ×3 (05:46→21:17)
[2018-04-23 06:31] LABS: BLOOD UREA NITROGEN 36 mg/dL (7-20); CALCIUM 8.6 mg/dL (8.4-10.2); GLUCOSE 112 mg/dL (75-110); POTASSIUM 3.7 mmol/L (3.6-5.0)
[2018-04-23 06:36] LABS: CARBON DIOXIDE 33 mmol/L (22-30); CHLORIDE 104 mmol/L (98-107); SODIUM 140.5 mmol/L (137-145)
[2018-04-23 06:42] LABS: ANION GAP 4 (5-19)
[2018-04-23] MEDS: MEROPENEM 1 GM in NORMAL SALINE 50 ML IV SCH ×2 (09:40→21:17)
[2018-04-23] MEDS: CHOLECALCIFEROL (D3) 1,000 UNIT TABLET PO SCH (09:41)
[2018-04-23] MEDS: FERROUS SULFATE 325 MG TABLET PO SCH ×2 (09:41→21:17)
[2018-04-23] MEDS: ESCITALOPRAM OXALATE 10 MG TABLET PO SCH (09:41)
[2018-04-23] MEDS: CLOPIDOGREL BISULFATE 75 MG TABLET PO SCH (09:41)
[2018-04-23] MEDS: ASPIRIN 325 MG TABLET, ENT COATED PO SCH (09:41)
[2018-04-23] MEDS: DOCUSATE SODIUM 100 MG CAPSULE PO SCH (09:41)
[2018-04-23] MEDS: CALCIUM CARBONATE 250 MG/VITAMIN D3 125 UNIT TABLET PO SCH ×2 (09:43→18:29)
--- NOTE | 2018-04-23 16:12 | PDOC PROGRESS REPORT ---
Subjective Progress Note for:: 04/23/18 Subjective:: No adverse events overnight. No new complaints. Her vital signs been stable. Urine outputs been good. She is been eating food when it is presented to her. No fevers. Reason For Visit: ENCEPHALOPATHY Physical Exam Vital Signs: Temp Pulse Resp BP Pulse Ox 98.8 F 89 22 H 142/52 H 90 L 04/23/18 12:35 04/23/18 12:35 04/23/18 12:35 04/23/18 12:35 04/23/18 12:35 Intake & Output 04/22/18 04/23/18 04/24/18 06:59 06:59 06:59 Intake Total 848 1475 50 Output Total 280 530 Balance 568 945 50 Weight 74.5 kg 75.1 kg General appearance: PRESENT: no acute distress, cooperative, disheveled, morbidly obese Respiratory exam: PRESENT: clear to auscultation nohemi, symmetrical, unlabored. ABSENT: accessory muscle use, crackles, prolonged expiratory phas, rhonchi, tachypnea, wheezes Cardiovascular exam: PRESENT: RRR, +S1, +S2, systolic murmur Pulses: PRESENT: normal carotid pulses Vascular exam: PRESENT: normal capillary refill GI/Abdominal exam: PRESENT: normal bowel sounds, soft. ABSENT: distended, guarding, rebound, tenderness Extremities exam: ABSENT: clubbing, pedal edema Musculoskeletal exam: PRESENT: normal inspection. ABSENT: deformity Neurological exam: PRESENT: awake, oriented to person. ABSENT: oriented to place, oriented to situation Psychiatric exam: PRESENT: flat affect Skin exam: PRESENT: dry, warm Results Laboratory Results: 04/23/18 05:02 04/23/18 05:02 04/23/18 04/23/18 05:02 05:02 WBC 6.8 RBC 3.81 Hgb 9.3 L Hct 28.6 L MCV 75 L MCH 24.5 L MCHC 32.7 RDW 17.4 H Plt Count 254 Sodium 140.5 Potassium 3.7 Chloride 104 Carbon Dioxide 33 H Anion Gap 4 L BUN 36 H Creatinine 0.71 Est GFR ( Amer) > 60 Est GFR (Non-Af Amer) > 60 Glucose 112 H Calcium 8.6 04/21/18 14:06 Shoemaker Catheter Urine Culture - Final Staph Coagulase Negative Impressions: Chest X-Ray 04/21/18 12:05 IMPRESSION: Bibasilar heterogeneous pulmonary opacity concerning for infection or aspiration. Cardiomegaly. Assessment & Plan - Diagnosis (1) Altered mental status Qualifiers: Altered mental status type: unspecified Qualified Code(s): R41.82 - Altered mental status, unspecified Is this a current diagnosis for this admission?: Yes Plan: Possibly a metabolic encephalopathy from some sort of infection. We are treating her empirically for a pneumonia with meropenem, but I am still not entirely convinced she had a pneumonia. Cultures are pending, urine culture showed coagulase-negative Staphylococcus and so I do not know if this is a true pathogen. We also gave her some IV fluids she seems to be doing a little bit better. We do not know what her baseline mental status is like, but I suspect that what we have seen her the last couple of days is probably her baseline. (2) Dementia Qualifiers: Dementia type: Alzheimer's disease Alzheimer's disease onset: unspecified onset Dementia behavioral disturbance: without behavioral disturbance Qualified Code(s): G30.9 - Alzheimer's disease, unspecified; F02.80 - Dementia in other diseases classified elsewhere without behavioral disturbance Is this a current diagnosis for this admission?: Yes Plan: Clearly playing a role in her current state. Again, we do not know what her baseline mental status is. - Time Time Spent with patient: 25-34 minutes
[2018-04-24] MEDS: HEPARIN SOD (PORCINE) 5,000 UNIT/ML 1 ML SYRINGE SUBCUT SCH ×2 (05:54→13:02)
[2018-04-24] MEDS: LANSOPRAZOLE 30 MG TAB.RAP.DR PO SCH (05:55)
[2018-04-24] MEDS: LEVOTHYROXINE SODIUM 0.1 MG TABLET PO SCH (05:56)
[2018-04-24] MEDS: LEVOTHYROXINE SODIUM 0.025 MG TABLET PO SCH (05:56)
[2018-04-24] MEDS: RISPERIDONE 0.25 MG TABLET PO SCH ×2 (05:56→13:02)
[2018-04-24 06:03] LABS: HEMATOCRIT 28.5 % (36.0-47.0); HEMOGLOBIN 9.3 g/dL (12.0-15.5); MEAN CORPUSCULAR HEMOGLOBIN 24.4 pg (27.0-33.4); MEAN CORPUSCULAR HGB CONC 32.5 g/dL (32.0-36.0); MEAN CORPUSCULAR VOLUME 75 fl (80-97); PLATELET COUNT 269 10^3/uL (150-450); RED CELL DISTRIBUTION WIDTH 17.6 % (11.5-14.0); WHITE BLOOD COUNT 5.8 10^3/uL (4.0-10.5)
[2018-04-24 06:26] LABS: ANION GAP 6 (5-19); BLOOD UREA NITROGEN 30 mg/dL (7-20); CALCIUM 8.5 mg/dL (8.4-10.2); CARBON DIOXIDE 29 mmol/L (22-30); CHLORIDE 106 mmol/L (98-107); GLUCOSE 107 mg/dL (75-110); POTASSIUM 3.9 mmol/L (3.6-5.0); SODIUM 140.8 mmol/L (137-145)
--- NOTE | 2018-04-24 09:30 | PDOC TRANSFER SUMMARY ---
General - Admit/Disc Date/PCP Admission Date/Primary Care Provider: 04/21/18 15:19 ELYSE BOOTH MD Discharge Date: 04/24/18 - Discharge Diagnosis (1) Altered mental status Is this a current diagnosis for this admission?: Yes Summary: Etiology of this is still uncertain. She allegedly had a temperature of 101 Fahrenheit, we could not find any definitive evidence of infection, but she had apparently been treated for a pneumonia, so we put her on antibiotics for aspiration, as well as some IV fluids, and she improved. We will going to finish out a course of Avelox as that should cover community-acquired pneumonia and it covers anaerobes better than Levaquin so should provide her decent coverage in case this is aspiration. We fed her here and she did not have any trouble aspirating. (2) Dementia Is this a current diagnosis for this admission?: Yes Summary: We are unsure of her baseline mental status, but fortunately early this morning I was able to talk with the nurse who taking care of her during her previous hospitalization and she confirmed that the patient was back to her baseline as of this morning. - Additional Information Discharge Diet: Cardiac Discharge Activity: Activity As Tolerated, No Driving Prescriptions: Moxifloxacin HCl [Avelox] 400 mg PO DAILY #5 tablet Home Medications: Amlodipine Besylate [Norvasc 5 mg Tablet] 5 mg PO DAILY 04/12/18 Aspirin [Ecotrin 325 mg EC Tablet] 325 mg PO DAILY 04/12/18 Calcium Carbonate/Vitamin D3 [Calcium 600 + Vit D 400 Tablet] 1 tab PO BID 04/12/18 Cholecalciferol (Vitamin D3) [Vitamin D3] 5,000 unit PO DAILY 04/12/18 Clopidogrel Bisulfate [Plavix 75 mg Tablet] 75 mg PO DAILY 04/12/18 Docusate Sodium [Colace 100 mg Capsule] 200 mg PO DAILY 04/12/18 Escitalopram Oxalate [Lexapro 10 mg Tablet] 10 mg PO DAILY 04/12/18 Levothyroxine Sodium [Synthroid] 125 mcg PO Q6AM 04/12/18 Losartan Potassium [Cozaar 50 mg Tablet] 50 mg PO DAILY 04/12/18 Pantoprazole Sodium [Protonix] 40 mg PO DAILY 04/12/18 Risperidone [Risperdal] 0.5 mg PO Q8 04/12/18 Ferrous Sulfate [Feosol 325 mg Tablet] 325 mg PO Q12 #60 tablet 04/19/18 Moxifloxacin HCl [Avelox] 400 mg PO DAILY #5 tablet 04/24/18 History of Present Illness Admission Date/PCP: 04/21/18 15:19 ELYSE BOOTH MD History of Present Illness: YANDEL SUN is a 88 year old female who was just sent back to the [facility] 2 days ago after being hospitalized here for a pneumonia. She was supposed to be finishing up a course of Levaquin. There is no one here to provide a history and the patient's not in any condition to give me any information. Although I noticed that she was sent over here because she was "not acting right." Apparently she had a rectal temperature of 101 Fahrenheit. Chest x-ray is read as having some possible bibasilar opacities but does not look very impressive. Hospital Course Hospital Course: As noted above, we put her on antibiotics to cover for aspiration pneumonia as well as some IV fluids and by the next day she was eating as long as someone was feeding her and did so without any trouble. She recovered back to her baseline fairly quickly. We are going to empirically treat her with a few more days of some antibiotics. Her labs and examination were reassuring and she was d ischarged in her baseline fair condition. Physical Exam Vital Signs: Temp Pulse Resp BP Pulse Ox 98.0 F 72 18 145/53 H 97 04/24/18 07:35 04/24/18 07:35 04/24/18 07:35 04/24/18 07:35 04/24/18 07:35 Intake & Output 04/23/18 04/24/18 04/25/18 06:59 06:59 06:59 Intake Total 1475 1225 Output Total 530 725 Balance 945 500 Weight 75.1 kg 79.9 kg General appearance: PRESENT: no acute distress, cooperative, disheveled, morbidly obese Respiratory exam: PRESENT: clear to auscultation nohemi, symmetrical, unlabored. ABSENT: accessory muscle use, crackles, prolonged expiratory phas, rhonchi, tachypnea, wheezes Cardiovascular exam: PRESENT: RRR, +S1, +S2, systolic murmur Pulses: PRESENT: normal carotid pulses Vascular exam: PRESENT: normal capillary refill GI/Abdominal exam: PRESENT: normal bowel sounds, soft. ABSENT: distended, guarding, rebound, tenderness Extremities exam: ABSENT: clubbing, pedal edema Musculoskeletal exam: PRESENT: normal inspection. ABSENT: deformity Neurological exam: PRESENT: awake, oriented to person. ABSENT: oriented to place, oriented to situation Psychiatric exam: PRESENT: flat affect Skin exam: PRESENT: dry, warm Results Laboratory Results: 04/24/18 05:14 04/24/18 05:14 04/24/18 04/24/18 05:14 05:14 WBC 5.8 RBC 3.80 Hgb 9.3 L Hct 28.5 L MCV 75 L MCH 24.4 L MCHC 32.5 RDW 17.6 H Plt Count 269 Sodium 140.8 Potassium 3.9 Chloride 106 Carbon Dioxide 29 Anion Gap 6 BUN 30 H Creatinine 0.67 Est GFR ( Amer) > 60 Est GFR (Non-Af Amer) > 60 Glucose 107 Calcium 8.5 04/21/18 14:06 Shoemaker Catheter Urine Culture - Final Staph Coagulase Negative Impressions: Chest X-Ray 04/21/18 12:05 IMPRESSION: Bibasilar heterogeneous pulmonary opacity concerning for infection or aspiration. Cardiomegaly. Transfer Plan - Time Spent with Patient Time spent with patient: Greater than 30 Minutes Qualifiers - * PATIENT BEING DISCHARGED WITH ANY OF THE FOLLOWING DIAGNOSIS: No
[2018-04-24] MEDS: DOCUSATE SODIUM 100 MG CAPSULE PO SCH (10:52)
[2018-04-24] MEDS: CLOPIDOGREL BISULFATE 75 MG TABLET PO SCH (10:53)
[2018-04-24] MEDS: ESCITALOPRAM OXALATE 10 MG TABLET PO SCH (10:53)
[2018-04-24] MEDS: CALCIUM CARBONATE 250 MG/VITAMIN D3 125 UNIT TABLET PO SCH (10:53)
[2018-04-24] MEDS: FERROUS SULFATE 325 MG TABLET PO SCH (10:53)
[2018-04-24] MEDS: ASPIRIN 325 MG TABLET, ENT COATED PO SCH (10:53)
[2018-04-24] MEDS: CHOLECALCIFEROL (D3) 1,000 UNIT TABLET PO SCH (10:53)
[2018-04-24 12:09] VITALS: BP 152/73
[2018-04-24] MEDS: MEROPENEM 1 GM in NORMAL SALINE 50 ML IV SCH (12:55)
== END 2018-04-24 16:45 | DRG 948 ==
LOC: ER 11:48 → EH 15:19 → 4S 04-22 00:25 → 4N 04-24 06:25
PROVIDERS: ADMIT Internal Medicine; ATTEND Internal Medicine
DX: R41.82 Altered mental status, unspecified (principal); I25.10 Atherosclerotic heart disease of native coronary artery without angina pectoris; G30.9 Alzheimer's disease, unspecified; F02.80 Dementia in other diseases classified elsewhere, unspecified severity, without behavioral disturbance, psychotic disturbance, mood disturbance, and anxiety; I10 Essential (primary) hypertension; I73.9 Peripheral vascular disease, unspecified; E11.9 Type 2 diabetes mellitus without complications; E03.9 Hypothyroidism, unspecified; K21.9 Gastro-esophageal reflux disease without esophagitis; Z95.5 Presence of coronary angioplasty implant and graft; Z79.82 Long term (current) use of aspirin; Z79.899 Other long term (current) drug therapy; Z88.0 Allergy status to penicillin; Z88.8 Allergy status to other drugs, medicaments and biological substances
CPT/HCPCS: 36415; 51702; 71045; 80048; 80053; 81001; 82803; 83605; 85025; 85027; 85610; 87040; 87086; 93005; 93010; 96365; 99285; J0696; J1644; J2185; J3490; J7120